=== PATIENT | male | born 1940 | race Caucasian/White ===

== ENCOUNTER 2016-09-11 13:40 | Inpatient (IN) | payer OTHER ==
[~2016-09-11] VITALS: Ht 167.6 cm; Wt 90.9 kg
[~2016-09-11 13:40] MED LIST: ACET-1311 PO; ALFU10TA2 PO; AMB5 PO; ASPEC325 PO; ATR25 PO; BND25X PO; CHOL100010 PO; CLC100 PO; COEN1CAP28 PO; CRG25 PO; FRRS300 PO; FURO80TA63 PO; HYDR-3785 PO; MULT-506 PO; NTRGSL/4 SL; NTRGSL/4 UT; ODVTWSS MS; OMEG10007 PO; OXYC-57 PO; PANT40TA PO; SIMV80TA2 PO
[2016-09-11] MEDS ORDERED: ACETAMINOPHEN 500 MG TAB PO STA (14:04)
--- NOTE | 2016-09-11 14:25 | EMERGENCY ROOM VISIT NOTE ---
ED Visit Note First contact with patient: 13:47 This Patient was discussed with the physician Hydrogen Cell Tender, Danial Francisco PA-C. The pertinent historical and physical exam findings were confirmed. I agree with the studies ordered and with the interpretations of these studies. I agree with the disposition and care plan. The patient was found have an episode of wide-complex tachycardia. He doesn't a history of dilated cardiac myopathy. I explained to him that he is very high risk for ventricular tachycardia and . He does not wish to be evaluated for defibrillator pacer. We will continue to discuss this with him throughout his visit in our emergency department but he is very reluctant to have any procedures.
--- NOTE | 2016-09-11 14:41 | EMERGENCY ROOM VISIT NOTE ---
History First contact with patient: 13:47 Chief Complaint: RESPIRATORY PROBLEMS Stated Complaint: DIFFICULTY AMBULATING Nursing Triage Summary: Pt reports that he has been feeling SOB or 1 month and has been unable to lie flat. Pt also has been having difficulty ambulating for a long time. Pt reports he called the ambulance because of the SOB. Pt also c/o left leg pain. Pt has infection to left leg for 1 month. Pt has history of CHF and has been taking old Lasix for 1 month. History of Present Illness The patient is a 76 year old male who presents to the Emergency Room via ambulance with complaints of "difficulty ambulating, breathing". The patient states that for the past month he has had increased shortness of breath as well as difficulty ambulating secondary to the left anterior mccann pain. He states he has a history of peripheral arterial disease as well as what is believed to be CHF and severe cardiomyopathy. The shortness of breath is worse with lying flat. He also smokes 4 cigarettes per day, and has an extensive smoking history. At this time he currently denies any chest pain, history of pulmonary embolism, DVT, myocardial infarction. He believes that in the past he was told he has thin heart lim but then had an echocardiogram which did not correlate. He states he has been admitted for similar previously. He also furnishes a document regarding his advanced directive. Although does state he does not want any CPR, he does state that he would like minimal measures such as CPR but nothing extravagant. Review of Systems A complete 10-point Review of Systems was discussed with the patient, with pertinent positives and negatives listed in the History of Present Illness. All remaining Review of Systems questions can be considered negative unless otherwise specified. Past Medical/Surgical History Medical Problems: (1) Acute systolic CHF (congestive heart failure) (2) Erysipelas of lower extremity (3) Hypothyroidism (4) Poorly controlled type 2 diabetes mellitus (5) PVD (peripheral vascular disease) with claudication (6) Renal insufficiency (7) Tobacco abuse (8) Ventricular tachycardia Family History Noncontributory at this age. Social History Smoking Status: Current Every Day Smoker Alcohol Use: occasionally Marital Status: Social History: Current every day smoker. Current/Historical Medications Scheduled Aspirin (Aspirin Ec), 4 TABS PO DAILY Cholecalciferol (Vitamin D3), 1 TAB PO DAILY Coenzyme Q10 (Ubidecarenone) (Co Q10), 100 MG PO Q2D Fish Oil (Wilton-3), 1 CAP PO DAILY Furosemide (Lasix), 40 MG PO DAILY Multivitamin (Multivitamin), 1 TAB PO DAILY Scheduled PRN Acetaminophen (Tylenol), 650 MG PO Q6H PRN Allergies Coded Allergies: Clopidogrel (Verified Allergy, Intermediate, RASH, 09/11/16) Spironolactone (Verified Allergy, Intermediate, RASH, 09/11/16) Hydralazine (Unverified Allergy, Unknown, drug rash, 09/11/16) Isosorbide Nitrate (Verified Allergy, Unknown, rash, 09/11/16) Propylhexedrine (Unverified Allergy, Unknown, unknown, 09/11/16) Diltiazem (Verified Adverse Reaction, Severe, rash, 09/11/16) Lisinopril (Verified Adverse Reaction, Intermediate, hyperkalemia, 09/11/16) Metolazone (Verified Adverse Reaction, Intermediate, hypokalemia, 09/11/16) Physical Exam Vital Signs Date Time Temp Pulse Resp B/P Pulse Ox O2 Delivery O2 Flow Rate FiO2 09/11/16 17:52 81 18 108/80 97 Room Air 09/11/16 17:19 110 20 147/117 93 Room Air 09/11/16 16:51 99 20 133/98 94 Room Air 09/11/16 16:22 101 20 136/101 93 Room Air 09/11/16 16:19 102 09/11/16 16:18 125 09/11/16 15:44 96 20 138/75 96 Room Air 09/11/16 14:42 104 09/11/16 14:42 129/96 09/11/16 14:38 138 09/11/16 14:31 102 09/11/16 14:30 107 27 95 09/11/16 14:15 136 09/11/16 13:45 Room Air 09/11/16 13:45 96 Room Air 09/11/16 13:45 36.8 86 18 152/114 96 Room Air Physical Exam VITAL SIGNS - Vital signs and nursing notes were reviewed. Patient is afebrile , non-tachycardic, respiratory well, hypertensive at 152/114, O2 sat of 96 on room air. GENERAL -76-year-old male appearing his stated age who is in no acute distress. Communicates well with provider and answers questions appropriately. SKIN - there is erythema of the left anterior mccann, with 2 localized areas of ulceration. There is slight serous fluid, and 1 serous blister formation on the left anterior mccann. HEAD - NC/AT. EYES - PERRL with EOMI bilaterally. Sclera anicteric. Palpebral conjunctiva pink and moist with no injection noted. EARS - No deformities of external structures noted on gross examination bilaterally. NOSE - Midline and without cyanosis. No epistaxis or purulent drainage noted. MOUTH/OROPHARYNX - Without perioral cyanosis. Buccal mucosa pink and moist and without leukoplakia. Tongue midline with equal elevation of palate bilaterally. No tonsillar hypertrophy, erythema, or exudates noted. Poor dentition noted. NECK - Neck with FROM. Supple to palpation. No lymphadenopathy noted. No nuchal rigidity. LUNGS - Chest wall symmetric without accessory muscle use, intercostals retractions, or central cyanosis. Normal vesicular breath sounds CTA B/L. No wheezes, rales, or rhonchi appreciated. CARDIAC - RRR with S1/S2. No murmur, rubs, or gallops appreciated. ABDOMEN - Abdominal contour without pulsations or visible masses. BS normoactive all four quadrants. No tenderness, palpable masses, hepatosplenomegaly, or ascites noted. EXTREMITIES - No clubbing or peripheral cyanosis. There is bilateral pretibial edema present. There is tenderness to palpation overlying the left anterior mccann. NEUROLOGIC - Cranial nerves II through XII grossly intact. Sensory intact to light touch throughout. PSYCH - A&Ox3 and cooperates fully with examiner. Pt is very pleasant and interacts well with examiner. Medical Decision & Procedures ER Provider Diagnostic Interpretation: CHEST ONE VIEW PORTABLE CLINICAL HISTORY: palpitations SHORTNESS BREATH COMPARISON STUDY: 04/10/2011 FINDINGS: The heart is enlarged. There is no overt failure. There is no lobar consolidation. There is blunting of the left lateral costophrenic angle suggesting a small effusion.[ There are minimal left basilar atelectatic changes. IMPRESSION: Cardiomegaly and small left pleural effusion. Electronically signed by: Bryan Izquierdo M.D. 09/11/2016 3:16 PM Dictated Date/Time: 09/11/2016 3:15 PM Laboratory Results Test 09/11/16 14:35 09/11/16 14:39 09/11/16 14:42 Prothrombin Time 11.4 SECONDS (9.0-12.0) Prothromb Time International Ratio 1.1 (0.9-1.1) Activated Partial Thromboplast Time 24.7 SECONDS (21.0-31.0) Partial Thromboplastin Ratio 1.0 Globulin 4.1 gm/dl (2.5-4.0) Albumin/Globulin Ratio 0.7 (0.9-2) Lipase 97 U/L (73-393) Procalcitonin < 0.05 ng/mL (0-0.5) Thyroid Stimulating Hormone (TSH) 7.770 uIu/ml (0.300-4.500) Free Thyroxine 1.13 ng/dl (0.80-1.60) Bedside Lactic Acid Venous 1.84 mmol/L (0.90-1.70) Bedside Troponin I 0.150 ng/ml (0-0.045) UO-Ned-R-Type Natriuretic Peptide 52965 pg/ml (0-900) Date/Time Source Procedure Growth Status 09/11/16 14:35 Blood Blood Culture - Final NO GROWTH Complete Medications Administered Medications (Trade) Dose Ordered Sig/Pascual Route Start Time Stop Time Status Last Admin Dose Admin Acetaminophen (Tylenol Tab) 500 mg NOW STAT PO 09/11/16 14:04 09/11/16 14:07 DC 09/11/16 14:25 500 MG Ceftriaxone Sodium (Rocephin Inj) 1 gm NOW STAT IV 09/11/16 16:44 09/11/16 16:45 DC 09/11/16 16:50 1 GM Amiodarone HCL/ Dextrose (Nexterone / D5w) 150 mg STK-MED ONCE .ROUTE 09/11/16 17:06 09/11/16 17:07 DC 09/11/16 17:18 150 MG Amiodarone HCL/ Dextrose (Nexterone / D5w) 360 mg STK-MED ONCE .ROUTE 09/11/16 17:07 09/11/16 17:08 DC 09/11/16 17:19 360 MG Medical Decision The patient was seen and evaluated as above. After obtaining a thorough history and physical examination IV access was initiated and the above workup was performed. There is clinical suspicion of CHF exacerbation given his previous history as well as peripheral arterial disease of the left lower extremity. Because of the concern for infection blood cultures were also obtained. Patient declined opioid medication therefore acetaminophen was given for his pain. He has various allergies. CBC reveals no leukocytosis or anemia. Coagulation studies within normal limits. CMP reveals normal sodium, potassium, chloride and carbon dioxide. Anion gap elevated at 12, BUN 28 and creatinine 1.5. Random glucose at 329. Beta hydroxy but uric acid at 5.31. Murcm-jo-yxxy BNP and troponin both elevated. Troponin [place] 0[place]15[place] [address]. TSH is elevated at 7.77. X-ray reveals cardiomegaly with pleural effusion. EKG reveals sinus tachycardia with PVCs, possible left atrial enlargement, age indeterminant septal infarct and lateral infarct. There are also ST and T-wave abnormalities with concern for inferior ischemia. At this time there are no ST segment elevations. The case was discussed thoroughly with my attending. The patient then began experiencing episodes of ventricular tachycardia with a pulse. Each episode was brief, with episodes lasting as long as 1 minute and 15 seconds. (PLEASE SEE TIMELINE BELOW). I then felt the patient was a candidate for admission. I did discuss with him whether or not a cardiac cath would be possible and he states he did not like the idea of that. I did discuss the case with Dr. Kruger. The case was also thoroughly discussed with my attending. Because the patient continued to experience episodes of V. tach, I did consult cardiology, Dr. Corcoran. He recommended amiodarone. A bolus and drip provided intravenously. He also personally evaluated the patient and a bedside echo were performed. There is poor ejection fraction noted. During each episode of the patient's ventricular tachycardia he did have a pulse, and spontaneously converted. There is no need to do compressions or electricity. I do with the patient will benefit from inpatient management, likely in the ICU. At this time he is critical, but is stable for admission to the ICU. Patient was also evaluated by my attending. Please refer to further documentation regarding the patient's stay. The patient stated many times he does not want extravagant life resuscitating measures. He does however state that he would like treatment to include CPR and antibiotics. He was given 1 g Rocephin to help any potential infection of the left lower leg. I suspect that these are arterial ulcers with potential early cellulitis. In evaluation treatment this patient following differential diagnoses were entertained: CHF exacerbation, dilated cardiomyopathy, ND, PE, sepsis, cellulitis, among others. 14:15: Few second duration of VT 14:38: Few second duration of VT 16:01: Few second duration of VT 16:17-16:18: 1 minute of VT 17:26-17:27: 30 seconds of VT 18:03-18:04: 75 seconds of VT *all were with a pulse Impression Primary Impression: Ventricular tachycardia Additional Impressions: Dyspnea Tobacco abuse Hypothyroidism Renal insufficiency Acute systolic CHF (congestive heart failure) Critical Care I have personally spent greater than 60 minutes of critical care time in the direct management of this patient. This includes bedside care, interpretation of diagnostic studies, and testing, discussion with consultants, patient, and family members, and other required patient management activities. This 60 minutes is in excess of all separately billable procedures. Departure Information Dispostion Admitted as an inpatient Condition POOR Referrals Jonny Baird M.D. (PCP) Patient Instructions My [facility] Problem Qualifiers
[2016-09-11 14:51] LABS: BASO % 0.7 %; BASO ABS # 0.06 K/uL (0-0.2); COMPLETE YES; EOS % 1.9 %; HEMATOCRIT 50.3 % (42-52); IG% 0.3 %; LYMPH % 26.4 %; LYMPH ABS # 2.42 K/uL (1.2-3.4); MEAN CELL VOLUME 91.3 fL (80-100); MEAN CORPUSCULAR HEMOGLOBIN 30.9 pg (25-34); MEAN CORPUSCULAR HGB CONC 33.8 g/dl (32-36); MEAN PLATELET VOLUME 11.1 fL (7.4-10.4); MONO % 5.7 %; PLATELET COUNT 161 K/uL (130-400); RED BLOOD COUNT 5.51 M/uL (4.7-6.1); WHITE BLOOD COUNT 9.18 K/uL (4.8-10.8)
[2016-09-11 14:58] LABS: INR 1.1 (0.9-1.1); PROTHROMBIN TIME (PATIENT) 11.4 SECONDS (9.0-12.0)
[2016-09-11 15:02] LABS: POINT OF CARE TROPONIN I 0.15 ng/ml (0-0.045)
[2016-09-11 15:07] LABS: BUN/CREATININE RATIO 18.7 (10-20); CALCIUM 8.9 mg/dl (8.5-10.1); CREATININE 1.5 mg/dl (0.60-1.40); MAGNESIUM 2.3 mg/dl (1.8-2.4); POTASSIUM 3.8 mmol/L (3.5-5.1)
[2016-09-11 15:10] LABS: ALB/GLOB RATIO 0.7 (0.9-2)
--- NOTE | 2016-09-11 15:17 | DIAGNOSTIC IMAGING REPORT ---
CHEST ONE VIEW PORTABLE CLINICAL HISTORY: palpitations SHORTNESS BREATH COMPARISON STUDY: 04/10/2011 FINDINGS: The heart is enlarged. There is no overt failure. There is no lobar consolidation. There is blunting of the left lateral costophrenic angle suggesting a small effusion.[ There are minimal left basilar atelectatic changes. IMPRESSION: Cardiomegaly and small left pleural effusion. Electronically signed by: Bryan Izquierdo M.D. 09/11/2016 3:16 PM Dictated Date/Time: 09/11/2016 3:15 PM
[2016-09-11 15:42] LABS: BETA-HYDROXYBUTYRATE 5.31 mg/dL (0.2-2.81)
[2016-09-11] MEDS ORDERED: CHOL1000 PO (16:34)
[2016-09-11] MEDS ORDERED: ASPI81TA28 PO (16:34)
[2016-09-11] MEDS ORDERED: FURO40TA3 PO (16:34)
[2016-09-11] MEDS ORDERED: CEFTRIAXONE SOD INJ 1 GM ADDVIAL IV STA (16:44)
[2016-09-11] MEDS ORDERED: AMIODARONE IV BOLUS / DRIP IV STA ×2 (16:54→18:10)
[2016-09-11] MEDS ORDERED: AMIODARONE 150MG / 100ML D5W ONE (17:06)
[2016-09-11] MEDS ORDERED: AMIODARONE 360MG / 200ML D5W ONE (17:07)
[2016-09-11] MEDS ORDERED: MoRPHine SULFATE 4 MG/ML 1 ML CARP\\VIAL IV PRN (18:00)
[2016-09-11] MEDS ORDERED: GLUCOSE 40% GEL 15 GM TUBE PO PRN (18:00)
[2016-09-11] MEDS ORDERED: ACETAMINOPHEN 325 MG TAB PO PRN (18:00)
[2016-09-11] MEDS ORDERED: NITROGLYCERIN 0.4 MG SL PER TAB CHARGE SL PRN (18:00)
[2016-09-11] MEDS ORDERED: GLUCAGON FOR INJ 1 MG VIAL SQ PRN (18:00)
[2016-09-11] MEDS ORDERED: GLUCOSE 10 TABS/TUBE PO PRN (18:00)
[2016-09-11] MEDS ORDERED: MoRPHine SULFATE 2 MG/ML CARP IV PRN (18:00)
[2016-09-11] MEDS ORDERED: DEXTROSE 50% 50 ML SYR IV PRN (18:00)
[2016-09-11] MEDS ORDERED: CEFTRIAXONE SOD INJ 1 GM in DEXTROSE 5% ADD-VANTAGE 50ML 50 ML IV SCH (18:15)
--- NOTE | 2016-09-11 18:41 | ECHOCARDIOGRAM REPORT ---
*NOTICE TO RECEIVING CONSTITUTION PARTY AGENCY This information is strictly Confidential and protected under [place] law. [place] law prohibits you from making any further disclosure of this information unless further disclosure is expressly permitted by the written consent of the person to whom it pertains or is authorized by law. A general authorization for the release of medical or other information is not sufficient for this purpose. Hospital accepts no responsibility if the information is made available to any other person, INCLUDING THE PATIENT. Interpretation Summary * Name: GOOD GUSTAFSON Study Date: 09/11/2016 04:56 PM BP: 147/117 mmHg * Patient Location: [facility] HR: 110 * : 1940 (M/d/yyyy) Gender: Male Height: 66 in * Age: 76 yrs Ethnicity: CA Weight: 199 lb * Ordering Physician: Rashi Corcoran * Performed By: Desire Elliott RDCS * * Reason For Study: Ventricular tachycardia * BSA: 2.0 m2 * -- Conclusions -- * 1. Moderately dilated left ventricle with severely reduced systolic function. EF 10-20%. Global severe hypokinesis to akinesis (see diagram). No left ventricular hypertrophy. Tissue Doppler suggests elevated left atrial pressure. * 2. The right ventricle is mildly dilated. The right ventricular systolic function is severely reduced. * 3. Mild biatrial dilation. * 4. Sclerotic aortic valve without significant stenosis. * 5. Mild mitral regurgitation. * 6. Moderately elevated right ventricular systolic pressure; estimated RVSP 52 mmHg. * 7. Compared to prior study on 04/30/2010, LV systolic function is now severely reduced (was hyperdynamic on 04/30/10). Procedure Details * A complete two-dimensional transthoracic echocardiogram was performed (2D, M-mode, Doppler and color flow Doppler). Left Ventricle * Moderately dilated left ventricle with severely reduced systolic function. EF 10-20%. Global severe hypokinesis to akinesis (see diagram). No left ventricular hypertrophy. Tissue Doppler suggests elevated left atrial pressure. Right Ventricle * The right ventricle is mildly dilated. * The right ventricular systolic function is severely reduced. * The right ventricular systolic function is reduced as assessed by tricuspid annular plane systolic excursion (TAPSE) (TAPSE <1.6 cm). Atria * The left atrium is mildly dilated. * The right atrium is mildly dilated. Mitral Valve * The mitral valve is grossly normal. * There is no mitral valve stenosis. * There is mild mitral regurgitation. Tricuspid Valve * The tricuspid valve is not well visualized, but is grossly normal. * There is no tricuspid stenosis. * There is mild tricuspid regurgitation. Aortic Valve * Sclerotic aortic valve without significant stenosis. * No hemodynamically significant valvular aortic stenosis. * There is no significant aortic regurgitation. Pulmonic Valve * The pulmonic valve is not well visualized. Great Vessels * The aortic root is normal size. Pericardium/Pleural * There is no pericardial effusion. Great Vessels * Dilated IVC with normal inspiratory collapse. MMode 2D Measurements and Calculations IVSd 10 cm LVIDd 6.1 cm LVIDs 5.8 cm LVPWd 0.95 cm IVS/LVPW 1.1 FS 4.1 % EDV(Teich) 184.8 ml ESV(Teich) 167.8 ml EF(Teich) 9.2 % EDV(cubed) 223.6 ml ESV(cubed) 197.0 ml EF(cubed) 11.9 % LV mass(C)d 243.8 grams LV mass(C)dI 122.1 grams/m\S\2 SV(Teich) 17.0 ml SI(Teich) 8.5 ml/m\S\2 SV(cubed) 26.6 ml SI(cubed) 13.3 ml/m\S\2 Ao root diam 3.0 cm Ao root area 6.9 cm\S\2 ACS 1.5 cm LVOT diam 2.4 cm LVOT area 4.5 cm\S\2 LVAd ap4 45.8 cm\S\2 LVLd ap4 10.1 cm EDV(MOD-sp4) 175.9 ml EDV(sp4-el) 176.3 ml LVAs ap4 40.8 cm\S\2 LVLs ap4 10.0 cm ESV(MOD-sp4) 144.8 ml ESV(sp4-el) 141.3 ml EF(MOD-sp4) 17.6 % EF(sp4-el) 19.8 % LVAd ap2 49.1 cm\S\2 LVLd ap2 10.2 cm EDV(MOD-sp2) 195.9 ml EDV(sp2-el) 200.0 ml LVAs ap2 46.1 cm\S\2 LVLs ap2 10.4 cm ESV(MOD-sp2) 176.2 ml ESV(sp2-el) 174.1 ml EF(MOD-sp2) 10.0 % EF(sp2-el) 12.9 % LVLd %diff 1.2 % EDV(MOD-bp) 187.5 ml LVLs %diff 3.4 % ESV(MOD-bp) 162.8 ml EF(MOD-bp) 13.2 % SV(MOD-sp4) 31.0 ml SI(MOD-sp4) 15.5 ml/m\S\2 SV(MOD-sp2) 19.7 ml SI(MOD-sp2) 9.9 ml/m\S\2 SV(MOD-bp) 24.7 ml SI(MOD-bp) 12.4 ml/m\S\2 SV(sp4-el) 34.9 ml SI(sp4-el) 17.5 ml/m\S\2 SV(sp2-el) 25.9 ml SI(sp2-el) 13.0 ml/m\S\2 Doppler Measurements and Calculations MV E max disha 79.1 cm/sec MV dec time 0.15 sec Ao V2 max 91.1 cm/sec Ao max PG 3.3 mmHg Ao max PG (full) 2.2 mmHg WILLI(V,A) 2.6 cm\S\2 WILLI(V,D) 2.6 cm\S\2 LV V1 max PG 1.1 mmHg LV V1 max 53.4 cm/sec MR max disha 385.5 cm/sec MR max PG 59.4 mmHg MR mean disha 294.0 cm/sec MR mean PG 39.5 mmHg MR VTI 110.8 cm TV E max disha 59.7 cm/sec TR max disha 331.2 cm/sec RVSP(TR) 51.9 mmHg RAP systole 8.0 mmHg
[2016-09-11] MEDS ORDERED: PHARMACY GLYCEMIC MGMT CONSULT PRN (19:02)
[2016-09-11 19:30] VITALS: BP 130/87; PULSE 91; TEMP 37; O2SAT 95
--- NOTE | 2016-09-11 19:33 | CARDIOLOGY CONSULTATION ---
DATE OF CONSULTATION: 09/11/2016 TIME: 1743 p.m. PRIMARY PARTY PLAN SALESPERSON: Dr. Horvath. CONSULTING PHYSICIAN: Dr. Larios of the Emergency Department. HISTORY OF PRESENT ILLNESS: Mr. Benítez is a pleasant 76-year-old gentleman with a history significant for cardiomyopathy, systolic CHF, dyslipidemia, hypertension, and severe peripheral arterial disease. He was last seen by Dr. Horvath on 04/07/2011 in the office. He was also followed by Dr. Baird in the primary care setting; however, he was unable to leave his house and attend visits so was last evaluated by Dr. Baird in 2011. After that last visit and prescription medications for approximately 1 year, he has gone without prescription medications including his carvedilol, statin and Lasix. In 2008, his ejection fraction was listed as 15%-20%. This was during a stress test. In 2009, his LV systolic function was reported as hyperdynamic with an EF of 75%-80%. This occurred after being treated with carvedilol. He was intolerant to SANDY inhibitors due to hyperkalemia. He had done relatively well from a cardiac standpoint until the last month or so. He had worsening shortness of breath which has progressively worsened over time. He describes this as both his shortness of breath at rest, dyspnea with exertion, as well as orthopnea and paroxysmal nocturnal dyspnea. He is barely able to sleep secondary to bilateral leg pain and paroxysmal nocturnal dyspnea. He has noted increasing edema with blister formation, which sometimes drain serous type of fluid. His left lower extremity has become erythematous with an open wound which recently started to heal. He has been coughing with frothy sputum. He denies syncope, palpitations, chest discomfort, abdominal pain, nausea, vomiting, melena, hematochezia, hematuria, fevers, chills. His was able to find some of his hold Lasix that had been sitting around for a few years. She has been giving him anywhere from 60-80 mg over the past 60 days or so. Apparently the Lasix improved his symptoms transiently early on, but they have not noticed any improvement over the past 30 days or so. He came to the Emergency Department for his worsening symptoms. While in the Emergency Department, he had a few runs of nonsustained ventricular tachycardia but also a sustained run of ventricular tachycardia that lasted greater than 1 minute. Although he did not feel palpitations or chest discomfort, both he and his agree that he began to become more and more fatigued and she said that while he was talking he began to fade. The Emergency Department staff states that he did have a pulse during this episode and did not lose consciousness. He spontaneously converted to sinus rhythm. He states that he has never been diagnosed with diabetes; however, his glucose in the Emergency Department was greater than 300. He states he eats sugar and sugary foods to keep up his energy. In regards to claudication, he can only walk 20-30 feet, basically from room to room in his house before getting claudication symptoms and having to rest. He was told in the past that stents of his lower extremities were not a great option. He does not recall ever having a cardiac catheterization and he is not interested in undergoing one. He states that he maintains a low sodium diet. He does not weigh himself. REVIEW OF SYSTEMS: As above and otherwise review of systems is negative. PAST MEDICAL HISTORY: 1. History of cardiomyopathy in 2008 with EF 15%-20%, but reported hyperdynamic LV systolic function 2009. 2. Chronic kidney disease. 3. Systolic CHF. 4. Dyslipidemia. 5. Hypertension. 6. Incomplete left bundle-branch block. 7. Mitral regurgitation. 8. Peripheral arterial disease with a duplex in October 2009 reporting bilateral SFA occlusion and severe stenosis in the profunda arteries. 9. Anemia. 10. Nonsustained ventricular tachycardia. HOME MEDICATIONS: Include 1. Aspirin total of 325 mg daily. 2. Centrum vitamin. 3. Vitamin D3. 4. Fish oil. 5. CoQ10. 6. Recently he had been taking Lasix 60 or 80 mg a day. ALLERGIES AND INTOLERANCES: 1. PLAVIX CAUSED RASH. 2. DILTIAZEM CAUSED RASH. 3. SPIRONOLACTONE CAUSED RASH. 4. LISINOPRIL CAUSED HYPERKALEMIA. 5. METOLAZONE CAUSED HYPOKALEMIA. 6. HYDRALAZINE CAUSED RASH. 7. ISOSORBIDE MONONITRATE SUSPECTED TO CAUSE RASH. 8. PROPYLHEXEDRINE CAUSED RASH. 9. HYDROCODONE AND OXYCODONE CAUSED CONSTIPATION AND BLOATING. SOCIAL HISTORY: He smokes 4 cigarettes per day but smoked up to three-fourths of a pack per day chronically. Rare alcohol. No drugs. No children. He lives at home with his and pet birds. His is present at the bedside. 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 FAMILY HISTORY: No known premature CAD or sudden cardiac . PHYSICAL EXAMINATION: VITAL SIGNS: Temperature is 36.8 degrees, heart rate 110 beats per minute, respiration rate 20, blood pressure 147/117 mmHg, oxygen saturation 93% on room air, weight 90.7 kg. GENERAL: No acute distress. He is alert and oriented. HEENT: Anicteric sclerae. NECK: Elevated JVD. No bruits. Normal carotid upstrokes bilaterally. CARDIAC EXAMINATION: PMI was nonpalpable. There was no ventricular heave. Regular with ectopy and tachycardic in the low 100s, normal S1, S2. No murmurs, rubs, or gallops were auscultated. LUNGS: Rales bilateral bases. ABDOMEN: Soft, nontender, nondistended, normoactive bowel sounds, no bruits noted. EXTREMITIES: 2+ radial pulses bilaterally. 1+ femoral pulses bilaterally with bilateral femoral bruits. Distal lower extremity pulses were nonpalpable. 2+ bilateral pitting edema to above the knees. Left lower extremity with a healing wound and erythema. It is tender to palpation. No palpable cords. No cyanosis. PSYCHIATRIC: Affect appears appropriate. ECG personally reviewed. Sinus rhythm, possible anterior infarct. ST/T-wave abnormality in the inferior leads. Possible lateral infarct. PVCs and ventricular couplet. Telemetry personally reviewed. Nonsustained ventricular tachycardic episodes as well as a sustained ventricular tachycardia of greater than 1 minute. It appeared monomorphic. Outpatient echocardiogram reports reviewed as noted above. Outpatient chart reviewed. Inpatient chart reviewed. LABORATORY DATA: Sodium 136, potassium 3.8, BUN 28, creatinine 1.5, which appears to be at his baseline. Lactic acid 1.84, magnesium 2.3, AST 32, ALT 40. Troponin 0.15. ProBNP 10,141, albumin 2.9. Lipase 97, glucose 329. INR is 1.1. White blood cell count is 9.18, hemoglobin 17, platelets 161. Chest x-ray image personally reviewed. Cardiomegaly noted. No obvious infiltrate. Radiology has also interpreted as cardiomegaly and small left pleural effusion. Stat echocardiogram was ordered. The images were personally reviewed at bedside. Preliminary review demonstrates severely reduced LV systolic function with an EF of less than 20%. There was no severe valvular abnormality noted. There appeared to be mild mitral regurgitation. Full report to follow when echo is formally reviewed. ASSESSMENT AND PLAN: 1. Sustained ventricular tachycardia: He apparently had a pulse according to the Emergency Department staff; however, he was symptomatic and his stated that he was starting to fade. This is likely secondary to his cardiomyopathy. Recommend amiodarone drip. Recommend low-dose beta-gavin. TSH level ordered. We discussed potentially undergoing ICD placement in the future if his LV systolic function is not improved; however, he states that he is not interested in such measures. 2. Acute on chronic systolic congestive heart failure: He had decompensated congestive heart failure and is hypervolemic. Lasix 80 mg IV x1 followed by 40 mg IV b.i.d. Goal to be 1-2 liters negative in the next 24 hours from a fluid balance standpoint. Low sodium diet, daily weights and strict I's and O's. Start low dose carvedilol and increase as tolerated once the heart failure starts to improve. He apparently had hyperkalemia with lisinopril in the past. 3. Cardiomyopathy: Etiology uncertain. He apparently had a severely reduced LV systolic function in the past which improved while on carvedilol. Coronary angiography was discussed with him and recommended; however, he declines. He was made aware that if he has multivessel coronary artery disease that his LV systolic function may not improve and he is comfortable with this decision. Start carvedilol as noted above. Ideally would like to start SANDY inhibitor or Entresto; however, he had hyperkalemia in the past on SANDY inhibitor. He is not interested in ICD as noted above, understanding that arrhythmia may be fatal. 4. Elevated troponins: Serial troponins were recommended and ordered at this time. He is not interested in coronary angiography and he did not present with acute coronary syndrome. Although ventricular tachycardia can be an ischemic arrhythmia, this was monomorphic and therefore may not represent ischemia. Continue aspirin. Also, given his severe peripheral arterial disease, would treat for coronary artery disease as a potential cause for his cardiomyopathy. High intensity statin therapy will be ordered. Continue aspirin. Beta-gavin also as noted above. 5. Peripheral arterial disease: He appears as though he has significant quality of life limiting claudication. He states that he has not been a candidate for invasive measures and he is not interested invasive measures. Medical therapy as noted above. 6. Tobacco abuse: It was recommended that he stop smoking. 7. Hypertension: Carvedilol and diuretic therapy is being initiated as noted above. 8. Disposition: We discussed code status. He does not want to undergo mechanical ventilation but is okay with defibrillation and other CPR measures. He was agreeable to supporting breathing such as bag and mask, but if he is unable to be resuscitated with the other ACLS measures he did not want to be placed on mechanical ventilator at any time. Highly complex medical issues. Plan of care has been discussed with Dr. Larios of the Emergency Department, Dr. Kruger of the admitting service and also Dr. Alberto of the critical care team. Complex medical issues. 75 minutes critical care time spent coordinating care, counseling patient, reviewing images including treatment for his heart failure and ventricular tachycardia. Cardiology will continue to follow. Dr. Horvath will resume his cardiology care tomorrow when he returns to the hospital.
[2016-09-11 20:01] VITALS: BP 107/68; PULSE 87; O2SAT 95
--- NOTE | 2016-09-11 20:01 | Critical Care Consultation ---
Critical Care Consultation Date of Consultation: Sep 11, 2016. Attending Physician: Damari Kruger Reason for Consultation: Sustained ventricular tachycardia dilated cardiomyopathy History of Present Illness Patient is a 76-year-old male who presents with a history of congestive heart failure who has had difficulty walking and breathing for the past several days. He is also complaining of a painful left lower extremity with significant nonhealing wound for the past several days. He was evaluated in the emergency department and found to be in sustained ventricular tachycardia he actually had a syncopal event associated with this and was cardioverted. He's been evaluated by Dr. Corcoran cardiology and started on amiodarone, he is also had a urgent echocardiogram with depressed ejection fraction. The patient has not wanted invasive procedures such as an AICD, he does not want to be intubated in event of cardiac arrest he would desire cardioversion and short CPR if they can return a perfusing rhythm otherwise he does not desire continued heroic measures. Past Medical/Surgical History Ventricular tachycardia tachycardia Acute systolic heart failure Complicated skin and soft tissue infection of the left lower extremity Renal insufficiency baseline creatinine approximately 1.4 Diabetes mellitus uncontrolled type II Hypothyroidism Peripheral vascular disease Tobacco abuse Social History Smoking Status: Current Every Day Smoker Marital Status: Allergies Coded Allergies: Clopidogrel (Verified Allergy, Intermediate, RASH, 09/11/16) Spironolactone (Verified Allergy, Intermediate, RASH, 09/11/16) Hydralazine (Unverified Allergy, Unknown, unknown, 09/11/16) Propylhexedrine (Unverified Allergy, Unknown, unknown, 09/11/16) Diltiazem (Verified Adverse Reaction, Unknown, unknown, 09/11/16) Lisinopril (Verified Adverse Reaction, Unknown, unknown, 09/11/16) Metolazone (Verified Adverse Reaction, Unknown, unknown, 09/11/16) Home Medications Scheduled Aspirin (Aspirin Ec), 4 TABS PO DAILY Cholecalciferol (Vitamin D3), 1 TAB PO DAILY Coenzyme Q10 (Ubidecarenone) (Co Q10), 100 MG PO Q2D Fish Oil ([place]-3), 1 CAP PO DAILY Furosemide (Lasix), 40 MG PO DAILY Multivitamin (Multivitamin), 1 TAB PO DAILY Scheduled PRN Acetaminophen (Tylenol), 650 MG PO Q6H PRN Current Inpatient Medications Current Inpatient Medications Medications (Trade) Dose Ordered Sig/Pascual Route Start Time Stop Time Status Last Admin Dose Admin Carvedilol 3.125 mg 3.125 mg BID PO 09/11/16 21:00 10/11/16 20:59 UNV Furosemide 80 mg/ Syringe 8 ml @ 4 mls/min ONE IV 09/11/16 17:45 10/11/16 17:44 UNV Furosemide/Syringe (Lasix Inj/ Syringe) 4 ml @ 4 mls/min BID IV 09/12/16 07:00 10/12/16 06:59 UNV Aspirin (Ecotrin Tab) 81 mg QAM PO 09/12/16 09:00 10/12/16 08:59 UNV Atorvastatin Calcium (Lipitor Tab) 80 mg HS PO 09/11/16 21:00 10/11/16 20:59 UNV Heparin Sodium (Porcine) (Heparin Sq 5000 Unit/0.5ml) 5,000 unit Q8H SQ 09/11/16 18:00 10/11/16 17:59 UNV Acetaminophen (Tylenol Tab) 650 mg Q4H PRN PO 09/11/16 18:00 10/11/16 17:59 UNV Nitroglycerin (Nitrostat Tab) 0.4 mg UD PRN SL 09/11/16 18:00 10/11/16 17:59 UNV Morphine Sulfate (MoRPHine SULFATE INJ) 2 mg Q2H PRN IV 09/11/16 18:00 09/25/16 17:59 UNV Morphine Sulfate (MoRPHine SULFATE INJ) 4 mg Q2H PRN IV 09/11/16 18:00 09/25/16 17:59 UNV Insulin Aspart (novoLOG ASPART) SLIDING SCALE If C... ACHS SC 09/11/16 21:00 10/11/16 20:59 UNV Glucose (Glucose 40% Gel) 15-30 GRAMS 15 GRAMS... UD PRN PO 09/11/16 18:00 10/11/16 17:59 UNV Glucose (Glucose Chew Tab) 4-8 Tablets 4 Tabl... UD PRN PO 09/11/16 18:00 10/11/16 17:59 UNV Dextrose (Dextrose 50% 50ML Syringe) 25-50ML OF 50% DW IV FOR... UD PRN IV 09/11/16 18:00 10/11/16 17:59 UNV Glucagon (Glucagon Inj) 1 mg UD PRN SQ 09/11/16 18:00 10/11/16 17:59 UNV Miscellaneous Information (Consult Glycemic Management Pharmacy) 1 ea ONE STAT N/A 09/11/16 17:57 09/11/16 17:58 UNV Amiodarone HCl 1 ea 1 ea NOW STAT IV 09/11/16 18:10 09/11/16 18:11 UNV Ceftriaxone Sodium/Dextrose (Rocephin Inj/ Dextrose Add-[place] 50ML) 50 ml @ 100 mls/hr Q24H IV 09/11/16 18:15 09/21/16 18:14 UNV Review of Systems Constitutional: No chills, No fever Respiratory: + dyspnea on exertion, + shortness of breath Cardiovascular: + claudication, + edema, + orthopnea Musculoskeletal: + calf pain (at site of wound infection), + swelling Endocrine: + fatigue Physical Exam Date Time Temp Pulse Resp B/P Pulse Ox O2 Delivery O2 Flow Rate FiO2 09/11/16 17:52 81 18 108/80 97 Room Air 09/11/16 17:19 110 20 147/117 93 Room Air 09/11/16 16:51 99 20 133/98 94 Room Air 09/11/16 16:22 101 20 136/101 93 Room Air 09/11/16 16:19 102 09/11/16 16:18 125 09/11/16 15:44 96 20 138/75 96 Room Air 09/11/16 14:42 104 09/11/16 14:42 129/96 09/11/16 14:38 138 09/11/16 14:31 102 09/11/16 14:30 107 27 95 09/11/16 14:15 136 09/11/16 13:45 Room Air 09/11/16 13:45 96 Room Air 09/11/16 13:45 36.8 86 18 152/114 96 Room Air General Appearance: WD/WN Head: normocephalic, atraumatic Eyes: PERRLA, EOMI Neck: no tenderness, trachea midline Respiratory: rhonchi Cardiovasular: ectopy noted Abdomen: non tender, normal bowel sounds, no rebound Genitourinary - Male: external genitalia normal Upper Extremities: no edema Lower Extremities: edema (3+), other (significant erysipelas and wound on left lower extremity anterior mccann) Edema: Bilateral LE (3+) Neuro: alert, oriented x 3 Laboratory Results Last 24 Hours Test 09/11/16 14:35 09/11/16 14:39 09/11/16 14:42 White Blood Count 9.18 K/uL Red Blood Count 5.51 M/uL Hemoglobin 17.0 g/dL Hematocrit 50.3 % Mean Corpuscular Volume 91.3 fL Mean Corpuscular Hemoglobin 30.9 pg Mean Corpuscular Hemoglobin Concent 33.8 g/dl Platelet Count 161 K/uL Mean Platelet Volume 11.1 fL Neutrophils (%) (Auto) 65.0 % Lymphocytes (%) (Auto) 26.4 % Monocytes (%) (Auto) 5.7 % Eosinophils (%) (Auto) 1.9 % Basophils (%) (Auto) 0.7 % Neutrophils # (Auto) 5.98 K/uL Lymphocytes # (Auto) 2.42 K/uL Monocytes # (Auto) 0.52 K/uL Eosinophils # (Auto) 0.17 K/uL Basophils # (Auto) 0.06 K/uL RDW Standard Deviation 48.1 fL RDW Coefficient of Variation 14.3 % Immature Granulocyte % (Auto) 0.3 % Immature Granulocyte # (Auto) 0.03 K/uL Prothrombin Time 11.4 SECONDS Prothromb Time International Ratio 1.1 Activated Partial Thromboplast Time 24.7 SECONDS Partial Thromboplastin Ratio 1.0 Sodium Level 136 mmol/L Potassium Level 3.8 mmol/L Chloride Level 100 mmol/L Carbon Dioxide Level 24 mmol/L Anion Gap 12.0 mmol/L Blood Urea Nitrogen 28 mg/dl Creatinine 1.50 mg/dl Est Creatinine Clear Calc Drug Dose 45.6 ml/min Estimated GFR () 52.4 Estimated GFR (Non- 45.2 BUN/Creatinine Ratio 18.7 Random Glucose 329 mg/dl Calcium Level 8.9 mg/dl Magnesium Level 2.3 mg/dl Total Bilirubin 0.8 mg/dl Aspartate Amino Transf (AST/SGOT) 32 U/L Alanine Aminotransferase (ALT/SGPT) 40 U/L Alkaline Phosphatase 107 U/L Total Protein 7.0 gm/dl Albumin 2.9 gm/dl Globulin 4.1 gm/dl Albumin/Globulin Ratio 0.7 Lipase 97 U/L Beta-Hydroxybutyric Acid 5.31 mg/dL Thyroid Stimulating Hormone (TSH) 7.770 uIu/ml Bedside Lactic Acid Venous 1.84 mmol/L Bedside Troponin I 0.150 ng/ml [id number] Natriuretic Peptide 02445 pg/ml Diagnostic Results I have reviewed the chest x-ray report as well as the images themselves for chest x-ray dated 09/11/2016 impression cardiomegaly I have reviewed the EKG as well as report for EKG dated 09/11/2016 impression: Abnormal EKG, ST and T-wave abnormalities frequent PVCs sinus tachycardia rate of 110 prolonged QTC of 487 Assessment & Plan Patient is a 76-year-old male with history of dilated cardiomyopathy who is critically ill due to his symptomatic sustained ventricular tachycardia. PLAN: Neuro: Pain control of the right lower extremity, fentanyl when necessary as this will have less effect on blood pressures Resp: Supplemental oxygen as needed likely carries the diagnosis of cor pulmonale and or obstructive sleep apnea CV: Ventricular tachycardia, on amiodarone infusion, patient does not desire AICD Fluids/Renal: Renal insufficiency, and volume overload Lasix diuresis ID: Skin and soft tissue infection of the lower extremity, not meeting SIRS criteria, we will continue with ceftriaxone, will obtain mri scan of left lower extremity to exclude fasciitis or myositis, given vancomycin load for coverage would only continue treatment if MRI is positive GI/Nutrition: Low-sodium diet, would make nothing by mouth if MRI positive for pyomyositis if need open debridement Heme: Low platelets Endocrine: Poorly-controlled type II diabetic with hyperglycemia, pharmacy consult for glycemic control CODE STATUS: No intubation, requests active chest compressions electrical cardioversion and medications in event of cardiac arrest Surrogate decision maker: Patient's Candi Benítez [phone] I have personally spent 90 minutes of critical care time in the direct management of this patient. This is a life/limb threatening event. This includes time spent evaluating patient, direct bedside care, chart review, placing orders, interpretation of diagnostic studies, discussion with consultants, patient, and family members, as well as other required patient management activities. This time is exclusive of all separately billable procedures, and teaching time and separate from and in addition to any other critical care service time. I discussed the case with Dr. Lynch as well as Dr. Kurtis Corcoran
[2016-09-11] MEDS ORDERED: FUROSEMIDE INJ 80 MG in SYRINGE 0 ML IV SCH (20:15)
[2016-09-11] MEDS ORDERED: VANCOMYCIN CONSULT ACTIVE PRN (20:30)
[2016-09-11] MEDS: ATORVASTATIN 40 MG TAB PO SCH (20:57)
[2016-09-11] MEDS: CARVEDILOL 3.125 MG TAB PO SCH (20:57)
[2016-09-11 21:00] VITALS: BP 132/84; PULSE 93; O2SAT 95
[2016-09-11] MEDS ORDERED: VANCOMYCIN INJ 2,000 MG in SODIUM CHLORIDE 0.9% 500ML 500 ML IV ONE (21:00)
[2016-09-11 21:07] VITALS: BP 130/87; PULSE 89; O2SAT 94; BMI 31.6
[2016-09-11] MEDS: INSULIN ASPART 100 UNITS/ML 3 ML PEN SC SCH (21:08)
[2016-09-11] MEDS: HEPARIN SOD 5000 UNIT/0.5 ML CARP SQ SCH (21:09)
[2016-09-11 22:00] VITALS: BP 120/81; PULSE 77; TEMP 37; O2SAT 95
[2016-09-11] MEDS ORDERED: NURSING VERBAL MED ORDER ONE (22:15)
[2016-09-11] MEDS: AMIODARONE / D5W 200 ML IV SCH (22:49)
[2016-09-11 23:01] VITALS: BP 110/88; PULSE 93; O2SAT 91
--- NOTE | 2016-09-11 23:27 | History and Physical ---
History & Physical Date & Time of Service: Sep 11, 2016 at 22:50 Chief Complaint: Acute Systolic Chf,Ventricular Tachycardia Primary Care Physician: Jonny Baird M.D. History of Present Illness Source: patient, spouse This patient is a 76-year-old male with a history significant for cardiomyopathy, severe chronic systolic CHF with an EF previously of 15-20% on an echo from 2008, dyslipidemia,hypertension, nonsustained ventricular tachycardia, mitral regurgitation, severe peripheral arterial disease, and CKD stage III, who has been lost to follow-up from both cardiology and primary care for approximately 5-6 years. He apparently stopped taking all of his medications about 4 years ago. After medical management of his CHF, he did have improvement on a subsequent echo in 2009 with an EF of 75%. He presented to the emergency room today for progressively worsening shortness of breath, leg swelling, orthopnea, and severe leg pain with claudication and a left leg wound for the last 10 days. He has had some blisters rupture open due to the swelling in his legs. He can only walk 20 feet before he has severe pain in the legs. He denies chest pain. He denies fevers or chills. His was able to find some of his hold Lasix that had been sitting around for a few years. She has been giving him anywhere from 60-80 mg over the past 60 days or so. Apparently the Lasix improved his symptoms transiently early on , but they have not noticed any improvement over the past 30 days or so. While in the Emergency Department, he had a few runs of nonsustained ventricular tachycardia including 1 that lasted greater than 1 minute and he started to become unresponsive the ER physician or PA was about to commence chest compressions when the patient came out of the rhythm and became responsive. The patient was seen urgently in consultation with the senior sharepoint architect for the recurrent sustained ventricular tachycardia, and was bolused with amiodarone and then started on an amiodarone drip. He was found to be in florid decompensated CHF, and was given IV Lasix. A bedside echocardiogram was performed by the senior sharepoint architect which confirmed his ejection fraction was less than 20%. He will be admitted to the ICU given his recurrent sustained ventricular tachycardia, acute on chronic systolic CHF, and the cellulitis of the left leg. Past Medical/Surgical History Past medical history: Cardiomyopathy Severe chronic systolic CHF with an EF 15-20% Dyslipidemia Hypertension History of nonsustained ventricular tachycardia Mitral regurgitation Severe peripheral arterial disease CKD stage III Impaired fasting glucose Past surgical history: Right hip ORIF Family History Mom with CHF Dad with laryngeal cancer Social History Smoking Status: Former Smoker Alcohol Use: none Marital Status: Housing status: lives with family Immunizations History of Influenza Vaccine: Yes Influenza Vaccine Date: Mar 21, 2011 History of Tetanus Vaccine?: Unknown History of Pneumococcal: Yes Pneumococcal Date: Apr 17, 2009 History of Hepatitis B Vaccine: Unknown Multi-Drug Resistant Organisms History of MDRO: No Allergies Coded Allergies: Clopidogrel (Verified Allergy, Intermediate, RASH, 09/11/16) Spironolactone (Verified Allergy, Intermediate, RASH, 09/11/16) Hydralazine (Unverified Allergy, Unknown, unknown, 09/11/16) Propylhexedrine (Unverified Allergy, Unknown, unknown, 09/11/16) Diltiazem (Verified Adverse Reaction, Unknown, unknown, 09/11/16) Lisinopril (Verified Adverse Reaction, Unknown, unknown, 09/11/16) Metolazone (Verified Adverse Reaction, Unknown, unknown, 09/11/16) Home Medications Scheduled Aspirin (Aspirin Ec), 4 TABS PO DAILY Cholecalciferol (Vitamin D3), 1 TAB PO DAILY Coenzyme Q10 (Ubidecarenone) (Co Q10), 100 MG PO Q2D Fish Oil ([place]-3), 1 CAP PO DAILY Furosemide (Lasix), 40 MG PO DAILY Multivitamin (Multivitamin), 1 TAB PO DAILY Scheduled PRN Acetaminophen (Tylenol), 650 MG PO Q6H PRN Review of Systems Constitutional: No chills, No fever Eyes: No problem reported ENT: No problem reported Respiratory: + cough, + dyspnea at rest, + dyspnea on exertion, + shortness of breath Cardiovascular: + PND, + claudication, + edema, No chest pain, No palpitations Abdomen: No GI bleeding, No constipation, No diarrhea, No nausea, No pain, No vomiting Musculoskeletal: No problem reported Genitourinary - Male: No problem reported Neurologic: No problem reported Psychiatric: No problem reported Endocrine: No problem reported Hematologic / Lymphatic: No problem reported Integumentary: + new/changing skin lesions (left leg wound and blisters) Allergic / Immunologic: No problem reported Physical Exam Vital Signs Date Time Temp Pulse Resp B/P Pulse Ox O2 Delivery O2 Flow Rate FiO2 09/11/16 22:00 37.0 77 22 120/81 95 Room Air 09/11/16 21:07 89 130/87 94 Room Air 09/11/16 21:00 93 132/84 95 Room Air 09/11/16 20:01 87 107/68 95 Room Air 09/11/16 19:30 37.0 91 20 130/87 95 Room Air 09/11/16 18:44 89 18 116/94 96 Room Air 09/11/16 17:52 81 18 108/80 97 Room Air 09/11/16 17:19 110 20 147/117 93 Room Air 09/11/16 16:51 99 20 133/98 94 Room Air 09/11/16 16:22 101 20 136/101 93 Room Air 09/11/16 16:19 102 09/11/16 16:18 125 09/11/16 15:44 96 20 138/75 96 Room Air 09/11/16 14:42 104 09/11/16 14:42 129/96 09/11/16 14:38 138 09/11/16 14:31 102 09/11/16 14:30 107 27 95 09/11/16 14:15 136 09/11/16 13:45 Room Air 09/11/16 13:45 96 Room Air 09/11/16 13:45 36.8 86 18 152/114 96 Room Air General Appearance: no apparent distress, + obese (appears very ill and ashen in color) Head: normocephalic, atraumatic Eyes: normal inspection, PERRL, EOMI, sclerae normal ENT: hearing grossly normal, pharynx normal Neck: trachea midline Respiratory/Chest: no respiratory distress, no accessory muscle use, + decreased breath sounds (at the bases bilaterally) Cardiovascular: regular rate, rhythm, no murmur, + pertinent finding ( bilateral legs with 2+ pitting edema left greater than right with exquisite tenderness to palpation left greater than right, slow cap refill in the toes bilaterally, barely palpable pedal pulses bilaterally) Abdomen/GI: normal bowel sounds, non tender, soft, no organomegaly, no pulsatile mass Extremities/Musculoskelatal: + pertinent finding (left anterior tibia with large 10 x 4 cm superficial dry wound with surrounding erythema and warmth taking up the entire anterior tibia, no drainage, several clear fluid-filled blisters on left leg) Neurologic/Psych: alert, normal mood/affect Skin: + pertinent finding (ashen color, left leg with erythema as above) Diagnostics Laboratory Results Results Past 24 Hours Test 09/11/16 14:35 09/11/16 14:39 09/11/16 14:42 09/11/16 21:04 Range/Units White Blood Count 9.18 4.8-10.8 K/uL Red Blood Count 5.51 4.7-6.1 M/uL Hemoglobin 17.0 14.0-18.0 g/dL Hematocrit 50.3 42-52 % Mean Corpuscular Volume 91.3 80-100 fL Mean Corpuscular Hemoglobin 30.9 25-34 pg Mean Corpuscular Hemoglobin Concent 33.8 32-36 g/dl Platelet Count 161 130-400 K/uL Mean Platelet Volume 11.1 7.4-10.4 fL Neutrophils (%) (Auto) 65.0 % Lymphocytes (%) (Auto) 26.4 % Monocytes (%) (Auto) 5.7 % Eosinophils (%) (Auto) 1.9 % Basophils (%) (Auto) 0.7 % Neutrophils # (Auto) 5.98 1.4-6.5 K/uL Lymphocytes # (Auto) 2.42 1.2-3.4 K/uL Monocytes # (Auto) 0.52 0.11-0.59 K/uL Eosinophils # (Auto) 0.17 0-0.5 K/uL Basophils # (Auto) 0.06 0-0.2 K/uL RDW Standard Deviation 48.1 36.4-46.3 fL RDW Coefficient of Variation 14.3 11.5-14.5 % Immature Granulocyte % (Auto) 0.3 % Immature Granulocyte # (Auto) 0.03 0.00-0.02 K/uL Prothrombin Time 11.4 9.0-12.0 SECONDS Prothromb Time International Ratio 1.1 0.9-1.1 Activated Partial Thromboplast Time 24.7 21.0-31.0 SECONDS Partial Thromboplastin Ratio 1.0 Sodium Level 136 136-145 mmol/L Potassium Level 3.8 3.5-5.1 mmol/L Chloride Level 100 98-107 mmol/L Carbon Dioxide Level 24 21-32 mmol/L Anion Gap 12.0 3-11 mmol/L Blood Urea Nitrogen 28 7-18 mg/dl Creatinine 1.50 0.60-1.40 mg/dl Est Creatinine Clear Calc Drug Dose 45.6 ml/min Estimated GFR () 52.4 Estimated GFR (Non- 45.2 BUN/Creatinine Ratio 18.7 10-20 Random Glucose 329 70-99 mg/dl Calcium Level 8.9 8.5-10.1 mg/dl Magnesium Level 2.3 1.8-2.4 mg/dl Total Bilirubin 0.8 0.2-1 mg/dl Aspartate Amino Transf (AST/SGOT) 32 15-37 U/L Alanine Aminotransferase (ALT/SGPT) 40 12-78 U/L Alkaline Phosphatase 107 45-117 U/L Total Protein 7.0 6.4-8.2 gm/dl Albumin 2.9 3.4-5.0 gm/dl Globulin 4.1 2.5-4.0 gm/dl Albumin/Globulin Ratio 0.7 0.9-2 Lipase 97 73-393 U/L Beta-Hydroxybutyric Acid 5.31 0.2-2.81 mg/dL Procalcitonin < 0.05 0-0.5 ng/mL Thyroid Stimulating Hormone (TSH) 7.770 0.300-4.500 uIu/ml Free Thyroxine 1.13 0.80-1.60 ng/dl Bedside Lactic Acid Venous 1.84 0.90-1.70 mmol/L Bedside Troponin I 0.150 0-0.045 ng/ml SD-Ffn-Q-Type Natriuretic Peptide 59584 0-900 pg/ml Bedside Glucose 288 70-99 mg/dl Test 09/11/16 21:21 Range/Units Troponin I 0.151 0-0.045 ng/ml Microbiology Results 09/11/16 Blood Culture, Received Pending 09/11/16 Blood Culture, Received Pending 09/11/16 MRSA DNA Surveillance Screen - Final, Complete Specimen Negative for MRSA by DNA Probe Diagnostic Radiology Chest x-ray images reviewed personally by me and agree with cardiomegaly and small left pleural effusion EKG Sinus tachycardia with possible incomplete left bundle branch block, T-wave inversions in the inferior leads, old lateral infarct, PVCs Impression Assessment and Plan This patient is a 76-year-old male with a history significant for cardiomyopathy, severe chronic systolic CHF with an EF previously of 15-20% on an echo from 2008, dyslipidemia,hypertension, nonsustained ventricular tachycardia, mitral regurgitation, severe peripheral arterial disease, and CKD stage III, who has been lost to follow-up from both cardiology and primary care for approximately 5-6 years. He apparently stopped taking all of his medications about 4 years ago. He presented to the emergency room today for progressively worsening shortness of breath, leg swelling, orthopnea, and severe leg pain with claudication and a left leg wound. He was found to be in acutely decompensated systolic CHF and had recurrent runs of sustained ventricular tachycardia including one that lasted greater than 1 minute and as he started to become unresponsive, the ER physician or PA was about to commence chest compressions when the patient came out of the rhythm and became responsive. Acute on chronic severe systolic CHF, sustained ventricular tachycardia, severe PAD, hypertension, dyslipidemia-presumably ischemic cardiomyopathy although has never had a cardiac catheterization. The patient was seen urgently in consultation with the senior sharepoint architect for the recurrent sustained ventricular tachycardia, and was bolused with amiodarone and then started on an amiodarone drip. He was found to be in florid decompensated CHF, and was given IV Lasix 80 mg. A bedside echocardiogram was performed by the senior sharepoint architect which confirmed his ejection fraction was less than 20%. Troponin mildly elevated at 0.15 and BNP significantly elevated at 10 ,000. Echo: * 1. Moderately dilated left ventricle with severely reduced systolic function. EF 10-20%. Global severe hypokinesis to akinesis (see diagram). No left ventricular hypertrophy. Tissue Doppler suggests elevated left atrial pressure. * 2. The right ventricle is mildly dilated. The right ventricular systolic function is severely reduced. * 3. Mild biatrial dilation. * 4. Sclerotic aortic valve without significant stenosis. * 5. Mild mitral regurgitation. * 6. Moderately elevated right ventricular systolic pressure; estimated RVSP 52 mmHg. -admit to the ICU given his recurrent sustained ventricular tachycardia for close monitoring -Patient declines consideration for cardiac catheterization and prefers medical management at this time-he was made aware that he is at high risk for sudden and he is okay with a limited code with chest compressions, cardioversion , and Ambu bag, but does not want to be intubated or mechanically ventilated -Continue Lasix 40 mg IV twice a day and follow electrolytes and renal function -Continue amiodarone drip -Appreciate cardiology consultation -Start Coreg, high-dose statin, and aspirin -Trend serial cardiac biomarkers and give consideration for heparin drip if trend upward significantly Left leg arterial ulceration, severe PAD, cellulitis-lactate is normal, afebrile , no leukocytosis or signs of sepsis. The leg is extremely painful. -Check venous Doppler to rule out DVT -Consider arterial Dopplers however he is not a great candidate for any sort of vascular procedure at this time -Start Rocephin and vancomycin and follow blood cultures Hyperglycemia-with random glucose over 200, most likely with diabetes mellitus type 2 -Check hemoglobin A1c in the morning -Accu-Cheks every before meals at bedtime and sliding scale insulin Abnormal TSH-7.7, free T4 is normal -Repeat as an outpatient, no treatment for now CKD stage III-creatinine is around his baseline at 1.5 -Renally dose medications and avoid nephrotoxins -Follow PRP DVT prophylaxis-heparin subcutaneous Disposition-full code but no mechanical ventilation or intubation Level of Care Critical Care Advanced Directives Existing Living Will: Yes Existing Power of Screen Printer Helper: Yes Resuscitation Status FULL NO [facility] VTE Prophylaxis VTE Risk Assessment Done? Y/N: Yes Risk Level: Low Given or contraindicated: Unfractionated heparin SQ Note Will need strong consideration for home health upon discharge Additional Copies To Jonny Baird M.D.
[2016-09-12] VITALS (23 sets, daily range): BP systolic 102–139; BP diastolic 71–102; PULSE 61–90; TEMP 36.7–37.3; O2SAT 90–100; BMI 31.6
[2016-09-12] MEDS: LORAZEPAM 0.5 MG TAB PO PRN (01:19)
[2016-09-12] MEDS: FENTANYL CITRATE INJ 50 MCG/1 ML 2 ML VIAL IV PRN ×4 (01:24→23:36)
[2016-09-12] MEDS ORDERED: INSULIN ASPART 100 UNITS/ML 3 ML PEN SC ONE (02:00)
[2016-09-12 03:26] LABS: BASO % 0.3 %; BASO ABS # 0.03 K/uL (0-0.2); COMPLETE YES; EOS % 1.4 %; HEMATOCRIT 48.8 % (42-52); IG% 0.3 %; LYMPH % 21.4 %; LYMPH ABS # 1.99 K/uL (1.2-3.4); MEAN CELL VOLUME 91.7 fL (80-100); MEAN CORPUSCULAR HEMOGLOBIN 31.2 pg (25-34); MEAN PLATELET VOLUME 11.1 fL (7.4-10.4); MONO % 7.5 %; NEUT % 69.1 %; PLATELET COUNT 152 K/uL (130-400); RED BLOOD COUNT 5.32 M/uL (4.7-6.1)
[2016-09-12 03:50] LABS: BUN/CREATININE RATIO 18.7 (10-20); CALCIUM 8.3 mg/dl (8.5-10.1); CREATININE 1.5 mg/dl (0.60-1.40); MAGNESIUM 2.1 mg/dl (1.8-2.4); POTASSIUM 3.6 mmol/L (3.5-5.1)
[2016-09-12 03:52] LABS: PHOSPHORUS 3.7 mg/dl (2.5-4.9)
[2016-09-12 04:03] LABS: BETA-HYDROXYBUTYRATE 2.13 mg/dL (0.2-2.81)
[2016-09-12] MEDS: HEPARIN SOD 5000 UNIT/0.5 ML CARP SQ SCH ×3 (06:10→22:00)
--- NOTE | 2016-09-12 07:32 | DIAGNOSTIC IMAGING REPORT ---
LEFT LOWER EXTREMITY VENOUS DOPPLER HISTORY: leg swelling, wound, tenderness, r/o DVT COMPARISON STUDY: Left leg venous Doppler 04/20/2011. FINDINGS: There is normal compressibility, flow, and augmentation within the left lower extremity deep venous system. Left superficial femoral artery occlusion, unchanged. IMPRESSION: No DVT within the left lower extremity. Redemonstration of the left superficial femoral artery occlusion with reconstitution distally. This remains unchanged. Electronically signed by: Dean Blandon M.D. 09/12/2016 7:31 AM Dictated Date/Time: 09/12/2016 7:29 AM
[2016-09-12 07:45] LABS: ESTIMATED AVERAGE GLUCOSE 315 mg/dl; HA1C FLAG Normal (Normal)
[2016-09-12] MEDS: ASPIRIN 81 MG ECTAB PO SCH (07:51)
[2016-09-12] MEDS: FUROSEMIDE INJ 40 MG in SYRINGE 0 ML IV SCH ×2 (07:52→17:06)
[2016-09-12] MEDS: INSULIN ASPART 100 UNITS/ML 3 ML PEN SC SCH ×4 (07:54→20:49)
[2016-09-12] MEDS: CARVEDILOL 3.125 MG TAB PO SCH ×2 (07:56→20:50)
[2016-09-12] MEDS: INSULIN GLARGINE SOLOSTAR 100 UNITS/ML 3 ML PEN SC SCH ×2 (08:05→20:48)
--- NOTE | 2016-09-12 08:18 | DIAGNOSTIC IMAGING REPORT ---
CHEST ONE VIEW PORTABLE HISTORY: Short of breath. COMPARISON: Chest 09/11/2016. FINDINGS: Trace left pleural effusion persists. Heart and megaly and mild central pulmonary vascular congestion is again noted. No new focal lung consolidations. No pneumothorax. IMPRESSION: No significant change. Mild pulmonary vascular congestion and a trace left pleural effusion persist. Electronically signed by: Dean Blandon M.D. 09/12/2016 8:16 AM Dictated Date/Time: 09/12/2016 8:15 AM
[2016-09-12] MEDS ORDERED: ASPIRIN 81 MG ECTAB PO SCH (09:00)
--- NOTE | 2016-09-12 09:25 | CARDIOLOGY PROGRESS NOTE ---
DATE: 09/12/2016 TIME: 8:47 a.m. SUBJECTIVE: I am seeing Mr. Benítez for Dr. Horvath today. He will resume his care tomorrow. Mr. Benítez feels better from a shortness of breath standpoint. His has noted an improvement as well. He describes less PND than he did previously. He denies chest pain, syncope, near syncope or palpitations since yesterday. He agrees that his lower extremity edema has improved. OBJECTIVE: VITAL SIGNS: Temperature 36.7 degrees, heart rate 86 beats per minute, respiration rate 19, blood pressure 136/100 mmHg, oxygen saturation 100% on 2 liters per nasal cannula. I's and O's may not be complete. He states he only had 400 mL of urine output yesterday. He has since had a Torres catheter placed, however. Weight is 88.8 kg. GENERAL: No acute distress. He is alert. NECK: Elevated JVD. CARDIAC: No ventricular heave. Regular with ectopy. Normal S1, S2. No audible murmurs, rubs or gallops. LUNGS: Bibasilar rales. ABDOMEN: Soft, nontender, nondistended. Normoactive bowel sounds. EXTREMITIES: 2+ pitting edema bilateral lower extremities, which extends to above the knees. No cyanosis. Left lower extremity is dressed and is tender. PSYCHIATRIC: Affect appears appropriate. MEDICATIONS: Include amiodarone drip, aspirin 81 mg daily, Lipitor 80 mg at bedtime, carvedilol 3.125 mg p.o. b.i.d., ceftriaxone 1 gram IV q. 24 hours, fentanyl 25 mcg IV q. 1 hour p.r.n., Lasix 40 mg IV b.i.d., heparin 5000 units subcu q. 8 hours, insulin, vancomycin. Blood cultures are pending. LABORATORY DATA: Sodium is 140, potassium 3.6, BUN 28, creatinine 1.5, magnesium 2.1. Troponin 0.159, this is the peak troponin thus far. Albumin 2.8. Glucose 302. White blood cell count is 9.3, hemoglobin 16.6, platelets 152. INR is 1.1. Chest x-ray image personally reviewed. No obvious infiltrate. Small left pleural effusion. No significant findings to suggest CHF. Radiology has interpreted mild pulmonary vascular congestion and trace left pleural effusion. Left lower extremity ultrasound report reviewed. No DVT. Redemonstration of the left superficial femoral artery occlusion with reconstitution distally, which remains unchanged. ECG personally reviewed from this morning demonstrating sinus rhythm with PACs and PVCs. Lateral ST-T wave abnormality. Telemetry personally reviewed. No further ventricular arrhythmias since amiodarone. He does appear to be having intermittent junctional rhythm with sinus rhythm. Echocardiogram final report from yesterday demonstrated moderately dilated left ventricle with severely reduced LV systolic function. EF was 10-20%. Global severe hypokinesis to akinesis. Tissue Doppler suggests elevated left atrial pressure. Mild biatrial dilation. Mild RV dilation with severely reduced systolic function. Mild MR. RVSP 52 mmHg. ASSESSMENT AND PLAN: 1. Sustained ventricular tachycardia: Likely secondary to his cardiomyopathy. He has not had any further arrhythmia on amiodarone. We will start oral amiodarone loading which can be continued for a total of 9 additional days or as further directed by Dr. Horvath. He is not interested in ICD. 2. Acute on chronic systolic congestive heart failure: He has improved clinically and on exam; however, he is still hypervolemic. His improvement is greater than what his fluid balance is recorded. His I's and O's may or may not be accurate from the transition from the ER to the ICU. Would aim for a goal of at least 1 liter negative fluid balance today. This was discussed with nursing staff, Lydia, and if it does not appear that we are achieving this goal, would recommend further diuretic. Continue strict I's and O's, low-sodium diet, and daily weights. 3. Cardiomyopathy: Continue low-dose carvedilol. This can be further titrated over time. He is just due to receive his second dose this morning, and therefore, will not further titrate at this moment. However, his blood pressure and heart rate would certainly allow for further titration in the future, such as tomorrow. SANDY inhibitors have caused the hyperkalemia. HE HAS A LISTED ALLERGY TO SPIRONOLACTONE WELL. He is not interested in ICD. 4. Elevated troponin: Likely secondary to decompensated heart failure and sustained ventricular tachycardia. He is not interested in coronary angiography which would be indicated given his cardiomyopathy. He wants to avoid any invasive measures. He did not have myocardial infarction and he did not present with acute coronary syndrome. 5. Peripheral arterial disease: Continue statin therapy, antiplatelet therapy. He does have symptomatic peripheral arterial disease with significant claudication. He is not interested in invasive measures. 6. Tobacco abuse: Stop smoking. 7. Hypertension: Continue diuretic and carvedilol with titration over time of the beta gavin. 8. Disposition: From a cardiac standpoint, he has not had any further ventricular arrhythmia and plan is to convert to oral amiodarone. From a cardiac standpoint, can be transitioned to PCU. Continue with telemetry. Plan of care has been discussed with the critical care team. Dr. Horvath to resume his cardiology care tomorrow.
[2016-09-12] MEDS: AMIODARONE 200 MG TAB PO SCH ×2 (09:51→20:50)
--- NOTE | 2016-09-12 10:05 | DIAGNOSTIC IMAGING REPORT ---
LEFT LOWER LEG MRI WITHOUT CONTRAST HISTORY: Left leg pain infection TECHNIQUE: Multiplanar multisequence MRI of the left lower leg was performed without the use of intravenous contrast. COMPARISON STUDY: Left leg venous Doppler 04/20/2011. FINDINGS: There is significant diffuse subcutaneous edema throughout the left lower leg. Normal signal intensity within the left lower leg muscles. No loculated fluid collections to suggest an abscess on this noncontrast study. Normal marrow signal intensity seen within the visualized tibia and fibula. No cortical destruction or periosteal reaction to suggest osteomyelitis. No fracture or dislocation. IMPRESSION: 1. Diffuse subcutaneous edema throughout the left lower leg. 2. No evidence for osteomyelitis. Electronically signed by: Dean Blandon M.D. 09/12/2016 10:04 AM Dictated Date/Time: 09/12/2016 10:01 AM
[2016-09-12] MEDS: AMIODARONE / D5W 200 ML IV SCH (11:14)
--- NOTE | 2016-09-12 11:26 | Pharmacy Progress Note ---
Pharmacy Antibiotic Consult Date of Service: Sep 12, 2016. Pharmacy Dosing Scope Pharmacy is consulted to initiate vancomycin IV dosing therapy, order appropriate labs and adjust drug dose/frequency. Subjective The patient is a 76 year old male admitted on Sep 11, 2016 at 18:10 with questionable pyomyositis. Objective Height (Feet): 5 Height (Inches): 6.00 Weight (Kilograms): 88.800 Lab Results (24hrs): Laboratory Tests Test 09/11/16 14:35 09/12/16 03:18 BUN/Creatinine Ratio 18.7 18.7 Blood Urea Nitrogen 28 mg/dl 28 mg/dl Creatinine 1.50 mg/dl 1.50 mg/dl White Blood Count 9.18 K/uL 9.30 K/uL Red Blood Count 5.51 M/uL 5.32 M/uL Hemoglobin 17.0 g/dL 16.6 g/dL Hematocrit 50.3 % 48.8 % Mean Corpuscular Volume 91.3 fL 91.7 fL Mean Corpuscular Hemoglobin 30.9 pg 31.2 pg Mean Corpuscular Hemoglobin Concent 33.8 g/dl 34.0 g/dl Platelet Count 161 K/uL 152 K/uL Mean Platelet Volume 11.1 fL 11.1 fL Neutrophils (%) (Auto) 65.0 % 69.1 % Lymphocytes (%) (Auto) 26.4 % 21.4 % Monocytes (%) (Auto) 5.7 % 7.5 % Eosinophils (%) (Auto) 1.9 % 1.4 % Basophils (%) (Auto) 0.7 % 0.3 % Neutrophils # (Auto) 5.98 K/uL 6.42 K/uL Lymphocytes # (Auto) 2.42 K/uL 1.99 K/uL Monocytes # (Auto) 0.52 K/uL 0.70 K/uL Eosinophils # (Auto) 0.17 K/uL 0.13 K/uL Basophils # (Auto) 0.06 K/uL 0.03 K/uL Micro Results: Item Value Date Time MRSA DNA Surveillance Screen - Final Complete 09/11/16 1945 Nasal Specimen Negative for MRSA by DNA Probe Blood Culture Received 09/11/16 1435 Blood Pending Blood Culture Received 09/11/16 1430 Blood Pending Recent Pertinent Medications Item Value Date Time Ceftriaxone Sodium 1 gm 09/11/16 1644 (Rocephin Inj) NOW STAT/IV ONE TIME DOSE IN ED 09/11/16 1650 Assessment & Plan Assessment: * Left leg arterial ulceration, severe PAD, cellulitis-lactate is normal, afebrile, no leukocytosis or signs of sepsis. * chronic in nature, possibly acute process, additionally * The leg is extremely painful. * Start Rocephin and vancomycin and follow blood cultures Plan: * Begin/continue vancomycin and ceftriaxone IV at this time * De-escalate vancomycin when MRI and blood cultures negative per Dr. Alberto Vancomycin: * Loading dose: 2000 mg IV X 1 dose * Maintenance dose: 1500mg IV every 24 hours * Goal trough: 15-20mcg/mL until blood cultures result Ceftriaxone: * Continue 1000mg IV every 24 hours Labs: * Vancomycin trough at steady state on 09/14/16 prior to the 16:00 dose * PRP and CBC ordered by provider for 09/13 and 09/14 Pharmacy will continue to follow and will adjust dose/frequency as necessary. Thank you
[2016-09-12] MEDS ORDERED: CHLOROTHIAZIDE INJ 250 MG in DEXTROSE 5% 50ML 50 ML IV SCH (11:30)
--- NOTE | 2016-09-12 11:33 | Pharmacy Progress Note ---
Glycemic Control Intl Consult Date of Service Sep 12, 2016. Scope Glycemic Pharmacist consulted by Dr Kruger on 09/11/16 for glycemic control and to write orders per [facility] inpatient glycemic control protocol Objective Weight (Kilograms): 88.800 Accuchecks BSG (last 24hrs): Test 09/11/16 14:35 09/11/16 21:04 09/12/16 03:00 09/12/16 03:18 Random Glucose 329 mg/dl (70-99) 302 mg/dl (70-99) Bedside Glucose 288 mg/dl (70-99) 290 mg/dl (70-99) Test 09/12/16 07:48 09/12/16 11:09 Bedside Glucose 228 mg/dl (70-99) 115 mg/dl (70-99) Laboratory Data (last 24hrs) Test 09/11/16 14:35 09/12/16 03:18 Anion Gap 12.0 mmol/L 12.0 mmol/L BUN/Creatinine Ratio 18.7 18.7 Blood Urea Nitrogen 28 mg/dl 28 mg/dl Creatinine 1.50 mg/dl 1.50 mg/dl Potassium Level 3.8 mmol/L 3.6 mmol/L Sodium Level 136 mmol/L 140 mmol/L White Blood Count 9.18 K/uL 9.30 K/uL Red Blood Count 5.51 M/uL 5.32 M/uL Hemoglobin 17.0 g/dL 16.6 g/dL Hematocrit 50.3 % 48.8 % Mean Corpuscular Volume 91.3 fL 91.7 fL Mean Corpuscular Hemoglobin 30.9 pg 31.2 pg Mean Corpuscular Hemoglobin Concent 33.8 g/dl 34.0 g/dl Platelet Count 161 K/uL 152 K/uL Mean Platelet Volume 11.1 fL 11.1 fL Neutrophils (%) (Auto) 65.0 % 69.1 % Lymphocytes (%) (Auto) 26.4 % 21.4 % Monocytes (%) (Auto) 5.7 % 7.5 % Eosinophils (%) (Auto) 1.9 % 1.4 % Basophils (%) (Auto) 0.7 % 0.3 % Neutrophils # (Auto) 5.98 K/uL 6.42 K/uL Lymphocytes # (Auto) 2.42 K/uL 1.99 K/uL Monocytes # (Auto) 0.52 K/uL 0.70 K/uL Eosinophils # (Auto) 0.17 K/uL 0.13 K/uL Basophils # (Auto) 0.06 K/uL 0.03 K/uL Hemoglobin A1c 12.6 % HbA1c Test 09/12/16 03:18 Hemoglobin A1c 12.6 % (4.5-5.6) H Recent Pertinent Medications Outpatient Anti-diabetic Regimen: * n/a * A1c = 12.6 % 09/12/16 The patient is currently receiving: * Basal insulin: None at time of consult * Correctional Insulin: NovoLog Correction per scale AC/HS Goal Range: Low 140 mg/dL - High 180 mg/dL Correction Factor: 25 mg/dL/unit * Prandial insulin: Per carb ratio of 1 unit per 10 grams CHO consumed Risk Factors for Insulin Resistance: * Steroids: none * Infection: ceftriaxone and vancomycin - day #2 of each * Pressors: none * IVF: amiodarone gtt (mixed in dextrose) - will stop tonight * Recent Surgery: none * Diet: Low Na 1500mL diet Assessment & Plan ASSESSMENT: * ADA & AACE recommend a goal blood sugar range 140-180 mg/dl for the majority of critically ill & non-critically ill patients. However, more stringent targets may be selected in individual cases. 09/12/16 * 76 y/o who is not on any diabetic medications prior to admission. Presenting with SVT and fluid overload as well as hyperglycemia * NovoLog started on admission * BSGs continue to be elevated this AM (BSG 302mg/dL on AM PRP) * begin basal insulin at this time * A1c resulted and shows poor blood glucose control as an outpatient - non- diagnosed diabetic? * may require treatment at discharge (insulin vs. orals vs. other) PLAN FOR INPATIENT GLYCEMIC CONTROL: * Begin weight based Lantus * 0 units if BSG less than 140mg/dL * 10 units if BSG 140-180mg/dL * 15 units if BSG is above 180mg/dL * Continue NovoLog AC and HS * Correction factor: 25 mg/dL/unit * Carb ratio: 1 unit per 9 g of CHO consumed * Goal 140-180mg/dL per ADA recommendations * A1c -current * add to discharge instructions RECOMMENDATIONS FOR DISCHARGE: * pending * Please note that the plan above was derived based on current level of insulin resistance and hospital stress. These recommendations are appropriate for inpatient admission only. Plan of care upon discharge will need to be reassessed to avoid potential outpatient hypo/hyperglycemia. Thank you.
[2016-09-12] MEDS ORDERED: FUROSEMIDE INJ 80 MG in SYRINGE 0 ML IV ONE (12:00)
[2016-09-12] MEDS ORDERED: VANCOMYCIN INJ 1,500 MG in SODIUM CHLORIDE 0.9% 500ML 500 ML IV SCH (16:00)
--- NOTE | 2016-09-12 18:46 | Progress Note ---
Subjective Date of Service: Sep 12, 2016. Subjective Pt evaluation today including: conversation w/ patient, conversation w/ family , physical exam, chart review, lab review, review of inpatient medication list feeling much better than whwne he came in. notes breathign significantly improved. L leg still hurts but otherwise feeling better, feeling improved.. notes that he stopped meds/etc because getting to doctor visits was too difficult, so when he stopped going to visits he just stopped meds would like follow up but needs to have it in a way he can meet Problem List Medical Problems: (1) Dyspnea Status: Acute Review of Systems Respiratory: + shortness of breath (improving) ros otherwise negative except for as above Objective Vital Signs Date Time Temp Pulse Resp B/P Pulse Ox O2 Delivery O2 Flow Rate FiO2 09/12/16 18:00 79 16 102/71 94 Room Air 09/12/16 16:00 36.9 61 22 121/93 99 Room Air 09/12/16 13:50 67 21 97 09/12/16 12:35 82 22 90 09/12/16 12:20 69 0 98 09/12/16 12:05 73 24 97 09/12/16 12:00 100 Nasal Cannula 2.0 09/12/16 12:00 79 12 121/87 97 09/12/16 11:50 89 23 93 09/12/16 10:05 84 3 09/12/16 10:00 86 27 139/96 09/12/16 09:50 90 19 136/100 100 2.0 09/12/16 08:05 86 18 09/12/16 08:01 90 19 136/100 09/12/16 08:00 100 Nasal Cannula 2.0 09/12/16 08:00 36.7 90 19 136/100 100 Nasal Cannula 2.0 09/12/16 08:00 Nasal Cannula 09/12/16 07:50 82 22 100 09/12/16 05:01 90 25 137/102 94 Nasal Cannula 2.0 09/12/16 04:25 94 Room Air 09/12/16 04:01 37.3 72 7 111/75 98 Nasal Cannula 2.0 09/12/16 03:00 86 25 111/93 98 Nasal Cannula 2.0 09/12/16 02:01 62 18 117/71 93 Nasal Cannula 2.0 09/12/16 01:14 86 17 129/74 Nasal Cannula 2.0 09/12/16 00:06 94 Room Air 09/11/16 23:01 93 16 110/88 91 Room Air 09/11/16 22:00 37.0 77 22 120/81 95 Room Air 09/11/16 21:07 89 130/87 94 Room Air 09/11/16 21:00 93 132/84 95 Room Air 09/11/16 20:01 87 107/68 95 Room Air 09/11/16 19:30 37.0 91 20 130/87 95 Room Air 09/11/16 18:44 89 18 116/94 96 Room Air Physical Exam General Appearance: no apparent distress Eyes: EOMI ENT: hearing grossly normal Neck: trachea midline Respiratory/Chest: no respiratory distress, no accessory muscle use, + pertinent finding (llungs coarse faitn basilar rales) Cardiovascular: regular rate, rhythm (rate controlled) Neurologic/Psychiatric: blueprinter II-XII nml as tested Skin: normal color, warm/dry Laboratory Results Last 24 Hours Test 09/11/16 21:04 09/11/16 21:21 09/12/16 03:00 09/12/16 03:18 Bedside Glucose 288 mg/dl 290 mg/dl Troponin I 0.151 ng/ml 0.159 ng/ml White Blood Count 9.30 K/uL Red Blood Count 5.32 M/uL Hemoglobin 16.6 g/dL Hematocrit 48.8 % Mean Corpuscular Volume 91.7 fL Mean Corpuscular Hemoglobin 31.2 pg Mean Corpuscular Hemoglobin Concent 34.0 g/dl Platelet Count 152 K/uL Mean Platelet Volume 11.1 fL Neutrophils (%) (Auto) 69.1 % Lymphocytes (%) (Auto) 21.4 % Monocytes (%) (Auto) 7.5 % Eosinophils (%) (Auto) 1.4 % Basophils (%) (Auto) 0.3 % Neutrophils # (Auto) 6.42 K/uL Lymphocytes # (Auto) 1.99 K/uL Monocytes # (Auto) 0.70 K/uL Eosinophils # (Auto) 0.13 K/uL Basophils # (Auto) 0.03 K/uL RDW Standard Deviation 48.4 fL RDW Coefficient of Variation 14.5 % Immature Granulocyte % (Auto) 0.3 % Immature Granulocyte # (Auto) 0.03 K/uL Sodium Level 140 mmol/L Potassium Level 3.6 mmol/L Chloride Level 103 mmol/L Carbon Dioxide Level 25 mmol/L Anion Gap 12.0 mmol/L Blood Urea Nitrogen 28 mg/dl Creatinine 1.50 mg/dl Est Creatinine Clear Calc Drug Dose 45.1 ml/min Estimated GFR () 52.4 Estimated GFR (Non- 45.2 BUN/Creatinine Ratio 18.7 Random Glucose 302 mg/dl Estimated Average Glucose 315 mg/dl Hemoglobin A1c 12.6 % Calcium Level 8.3 mg/dl Phosphorus Level 3.7 mg/dl Magnesium Level 2.1 mg/dl Total Bilirubin 0.4 mg/dl Direct Bilirubin 0.2 mg/dl Aspartate Amino Transf (AST/SGOT) 23 U/L Alanine Aminotransferase (ALT/SGPT) 34 U/L Alkaline Phosphatase 100 U/L Total Protein 6.8 gm/dl Albumin 2.8 gm/dl Beta-Hydroxybutyric Acid 2.13 mg/dL Test 09/12/16 07:48 09/12/16 09:30 09/12/16 11:09 09/12/16 16:41 Bedside Glucose 228 mg/dl 115 mg/dl 150 mg/dl Troponin I 0.170 ng/ml Assessment and Plan Acute on chronic severe systolic CHF, sustained ventricular tachycardia, severe PAD, hypertension, dyslipidemia and presumably ischemic cardiomyopathy although has never had a cardiac catheterization. -med management as current - doing better -will need to work to transition to outpt med regimen that he can adhere to, and have hopefully at least home nursing for labs and vitals, clinical assessments to better communicate with PCP. also ?anyone locally who does home visits that could help facilitate his care? Left leg arterial ulceration, severe PAD, cellulitis-lactate is normal, afebrile , no leukocytosis or signs of sepsis. The leg is extremely painful. -Check venous Doppler to rule out DVT -Consider arterial Dopplers however he is not a great candidate for any sort of vascular procedure at this time -continue Rocephin and vancomycin -consult wound doc Hyperglycemia-/uncontrolled DM2, most likely with diabetes mellitus type 2 -A1c >12 -education -Accu-Cheks every before meals at bedtime and sliding scale insulin Abnormal TSH-7.7, free T4 is normal -Repeat as an outpatient, no treatment for now CKD stage III-creatinine is around his baseline at 1.5 -Renally dose medications and avoid nephrotoxins -Follow PRP DVT prophylaxis-heparin subcutaneous Disposition-full code but no mechanical ventilation or intubation stable for telemetry
[2016-09-12] MEDS: ATORVASTATIN 40 MG TAB PO SCH (20:50)
[2016-09-12] MEDS: CEFTRIAXONE SOD INJ 1 GM in DEXTROSE 5% ADD-VANTAGE 50ML 50 ML IV SCH (20:52)
[2016-09-12] MEDS ORDERED: [UNRECOGNIZED DRUG - REMARK] ONE (21:00)
[2016-09-13] VITALS (8 sets, daily range): BP systolic 90–152; BP diastolic 63–95; PULSE 58–81; TEMP 36.4–36.8; O2SAT 96–100; BMI 31.6
[2016-09-13 00:59] LABS: BASO % 0.5 %; BASO ABS # 0.04 K/uL (0-0.2); EOS % 1.7 %; HEMATOCRIT 48.4 % (42-52); IG% 0.1 %; LYMPH % 22.5 %; LYMPH ABS # 1.86 K/uL (1.2-3.4); MEAN CELL VOLUME 91.1 fL (80-100); MEAN CORPUSCULAR HEMOGLOBIN 30.9 pg (25-34); MEAN PLATELET VOLUME 11.2 fL (7.4-10.4); MONO % 9.6 %; NEUT % 65.6 %; PLATELET COUNT 141 K/uL (130-400); RED BLOOD COUNT 5.31 M/uL (4.7-6.1); WHITE BLOOD COUNT 8.27 K/uL (4.8-10.8)
[2016-09-13 01:01] LABS: COMPLETE YES; MEAN CORPUSCULAR HGB CONC 33.9 g/dl (32-36)
[2016-09-13 01:27] LABS: CALCIUM 8.6 mg/dl (8.5-10.1); CREATININE 1.6 mg/dl (0.60-1.40); MAGNESIUM 2.1 mg/dl (1.8-2.4); POTASSIUM 2.9 mmol/L (3.5-5.1)
[2016-09-13] MEDS ORDERED: POTASSIUM CHLORIDE 20 MEQ TABCR PO STA (01:39)
[2016-09-13] MEDS ORDERED: NURSING VERBAL MED ORDER ONE ×3 (01:45→14:00)
[2016-09-13] MEDS: FENTANYL CITRATE INJ 50 MCG/1 ML 2 ML VIAL IV PRN ×4 (01:55→10:29)
[2016-09-13] MEDS: POTASSIUM CHLR 10MEQ / WTR IV SCH (01:56)
[2016-09-13] MEDS: HEPARIN SOD 5000 UNIT/0.5 ML CARP SQ SCH ×3 (06:00→21:48)
--- NOTE | 2016-09-13 07:37 | DIAGNOSTIC IMAGING REPORT ---
CHEST ONE VIEW PORTABLE CLINICAL HISTORY: Congestive failure COMPARISON STUDY: 09/12/2016 FINDINGS: The heart remains enlarged. There is no current evidence of failure. There is no focal pulmonary consolidation. There is minor blunting of the left lateral costophrenic angle.[ IMPRESSION: Cardiomegaly. Suspected trace left pleural effusion. No evidence of focal pulmonary consolidation. No current evidence of failure Electronically signed by: Bryan Izquierdo M.D. 09/13/2016 7:35 AM Dictated Date/Time: 09/13/2016 7:35 AM
[2016-09-13] MEDS: INSULIN ASPART 100 UNITS/ML 3 ML PEN SC SCH ×5 (08:44→21:44)
[2016-09-13] MEDS: FUROSEMIDE INJ 40 MG in SYRINGE 0 ML IV SCH (08:45)
[2016-09-13] MEDS: INSULIN GLARGINE SOLOSTAR 100 UNITS/ML 3 ML PEN SC SCH ×2 (08:46→21:48)
[2016-09-13] MEDS: ASPIRIN 81 MG ECTAB PO SCH (10:25)
[2016-09-13] MEDS: CARVEDILOL 3.125 MG TAB PO SCH ×2 (10:25→21:44)
[2016-09-13] MEDS: AMIODARONE 200 MG TAB PO SCH ×2 (10:25→21:44)
[2016-09-13 11:56] LABS: BUN/CREATININE RATIO 21.4 (10-20); CALCIUM 8.7 mg/dl (8.5-10.1); CREATININE 1.8 mg/dl (0.60-1.40); POTASSIUM 3.7 mmol/L (3.5-5.1)
[2016-09-13] MEDS ORDERED: POTASSIUM CHLORIDE 10 MEQ TABCR PO ONE (12:45)
--- NOTE | 2016-09-13 13:22 | Pharmacy Progress Note ---
Glycemic Control: Progress Nt Date of Service Sep 13, 2016. Scope Glycemic Pharmacist consulted by Dr Kruger on 09/11/16 for glycemic control and to write orders per [facility] inpatient glycemic control protocol. Objective Accuchecks BSG (last 24hrs): Test 09/12/16 16:41 09/12/16 20:47 09/13/16 00:40 09/13/16 06:16 Bedside Glucose 150 mg/dl (70-99) 212 mg/dl (70-99) 143 mg/dl (70-99) Random Glucose 177 mg/dl (70-99) Test 09/13/16 11:14 09/13/16 11:22 Bedside Glucose 178 mg/dl (70-99) Random Glucose 185 mg/dl (70-99) Laboratory Data (last 24hrs) Test 09/13/16 00:40 09/13/16 11:22 Anion Gap 9.0 mmol/L 8.0 mmol/L BUN/Creatinine Ratio 21.0 21.4 Blood Urea Nitrogen 34 mg/dl 39 mg/dl Creatinine 1.60 mg/dl 1.80 mg/dl Potassium Level 2.9 mmol/L 3.7 mmol/L Sodium Level 142 mmol/L 139 mmol/L White Blood Count 8.27 K/uL Red Blood Count 5.31 M/uL Hemoglobin 16.4 g/dL Hematocrit 48.4 % Mean Corpuscular Volume 91.1 fL Mean Corpuscular Hemoglobin 30.9 pg Mean Corpuscular Hemoglobin Concent 33.9 g/dl Platelet Count 141 K/uL Mean Platelet Volume 11.2 fL Neutrophils (%) (Auto) 65.6 % Lymphocytes (%) (Auto) 22.5 % Monocytes (%) (Auto) 9.6 % Eosinophils (%) (Auto) 1.7 % Basophils (%) (Auto) 0.5 % Neutrophils # (Auto) 5.43 K/uL Lymphocytes # (Auto) 1.86 K/uL Monocytes # (Auto) 0.79 K/uL Eosinophils # (Auto) 0.14 K/uL Basophils # (Auto) 0.04 K/uL HbA1c: Test 09/12/16 03:18 Hemoglobin A1c 12.6 %(4.5-5.6) H Recent Pertinent Medications Outpatient Anti-diabetic Regimen: * n/a * A1c = 12.6 % 09/12/16 The patient is currently receiving: * Basal insulin: Lantus 15 units SQ BID * Correctional Insulin: NovoLog Correction per scale AC/HS Goal Range: Low 140 mg/dL - High 180 mg/dL Correction Factor: 25 mg/dL/unit * Prandial insulin: Per carb ratio of 1 unit per 9 grams CHO consumed Risk Factors for Insulin Resistance: * Steroids: none * Infection: ceftriaxone and vancomycin - day #3 of each * Pressors: none * IVF: none * Recent Surgery: none * Diet: Low Na / 1500mL diet / T2DM Assessment & Plan ASSESSMENT: * ADA & AACE recommend a goal blood sugar range 140-180 mg/dl for the majority of critically ill & non-critically ill patients. However, more stringent targets may be selected in individual cases. 09/12/16 * 76 y/o who is not on any diabetic medications prior to admission. Presenting with SVT and fluid overload as well as hyperglycemia * NovoLog started on admission * BSGs continue to be elevated this AM (BSG 302mg/dL on AM PRP) * begin basal insulin at this time * A1c resulted and shows poor blood glucose control as an outpatient - non- diagnosed diabetic? * may require treatment at discharge (insulin vs. orals vs. other) 09/13/16 * BSGs improved after the initiation of basal/bolus regimen * Continue weight based dosing at this time * No h/o DM on admission and poor followup with outpatient providers * may need diabetic medications at discharge * CDE met with - concern that patient may be unreceptive PLAN FOR INPATIENT GLYCEMIC CONTROL: * Begin weight based Lantus * 0 units if BSG less than 140mg/dL * 10 units if BSG 140-180mg/dL * 15 units if BSG is above 180mg/dL * Continue NovoLog AC and HS * Correction factor: 25 mg/dL/unit * Carb ratio: 1 unit per 7 g of CHO consumed * Goal 140-180mg/dL per ADA recommendations * A1c -current * add to discharge instructions RECOMMENDATIONS FOR DISCHARGE: * pending, will depend on patient agreeableness/CDE recommendations * Please note that the plan above was derived based on current level of insulin resistance and hospital stress. These recommendations are appropriate for inpatient admission only. Plan of care upon discharge will need to be reassessed to avoid potential outpatient hypo/hyperglycemia. Thank you.
--- NOTE | 2016-09-13 13:55 | PROGRESS NOTE ---
DATE: 09/13/2016 SUBJECTIVE: The patient was seen by me this morning in the intensive care unit. He is a telemetry border. His main complaint is continued left lower leg pain. He states it has prevented him from sleeping overnight. He is concerned that the continued pain will have an adverse effect on his heart. He denies any chest pain. No palpitations, lightheadedness, or syncope. Mild and constant nausea. No fevers or chills. The edema in his lower and upper legs has decreased since admission. He is not wearing any supplemental oxygen at time of my exam. He denies any current dyspnea. He states that overnight he did feel short of breath. CURRENT MEDICATIONS: Ceftriaxone 1 gram IV daily, vancomycin 1500 mg IV daily, aspirin 81 mg daily, Lantus insulin b.i.d. per protocol, amiodarone 400 mg b.i.d., furosemide 40 mg IV b.i.d., subQ heparin 5000 units q. 8 hours, carvedilol 3.125 mg b.i.d., atorvastatin 80 mg at bedtime, NovoLog sliding-scale insulin, fentanyl 25 mcg IV q. 1 hours as needed for pain, and several other p.r.n. medications. ALLERGIES AND ADVERSE DRUG REACTIONS: CLOPIDOGREL, DILTIAZEM, HYDRALAZINE, ISOSORBIDE, LISINOPRIL, METOLAZONE, PROPYLHEXEDRINE, SPIRONOLACTONE. MONITOR HISTORY: Over the past 24 hours reveals sinus rhythm, premature ventricular beats, episodes of accelerated junctional rhythm competing with sinus rhythm. No ventricular tachycardia. PHYSICAL EXAMINATION: VITAL SIGNS: This morning with oral temperature 36.4, pulse 70, blood pressure 133/71, pulse oximetry 99% on room air. Repeat room air oxygen saturation 98%. GENERAL APPEARANCE: Shows him to be lying in bed. No obvious distress. NECK: Jugular venous pressure approximately 8 cm. LUNGS: Scant bibasilar rales. Decreased breath sounds both bases. HEART: Regular rate and rhythm. S1, S2 normal. No S3 or S4. No murmur or rub. ABDOMEN: Soft. Nontender. No palpable masses or organomegaly. No bruits. Normal bowel sounds. EXTREMITIES: 1+ pretibial edema bilaterally. Trace upper leg edema bilaterally. Marked tenderness of the left pretibial region. This was with even light touch. Erythema left pretibial region. No significant increased warmth of the left lower leg compared to the right leg. NEUROLOGIC: Alert and oriented x3. Motor grossly intact. PSYCHIATRIC: Affect is normal. Intake and output yesterday . Labs today with sodium 139, potassium 3.7, chloride 101, carbon dioxide 30, BUN 39, creatinine 1.80, random glucose 185. Magnesium 2.0. CBC with WBC 8.27, hemoglobin 16.4, hematocrit 48.4, platelet count 141. Echocardiogram performed on September 11 with LV ejection fraction 10%-20%. Severe global hypokinesis to akinesis. Severe right ventricular systolic dysfunction. Moderate pulmonary hypertension. ASSESSMENT: 1. Severe left ventricular systolic dysfunction. Severe right ventricular systolic dysfunction. Acute on chronic systolic heart failure. His peripheral edema has decreased since admission. Negative fluid balance yesterday. Scant rales on exam today. Good oxygen saturation on room air. 2. Cellulitis, left leg. 3. Sustained ventricular tachycardia on admission. No ventricular tachycardia over the past 24 hours. 4. Junctional rhythm. Likely secondary to amiodarone as well as the carvedilol. 5. Renal insufficiency. BUN and creatinine have increased since yesterday. Likely secondary to diuresis. Also, decreased renal perfusion secondary to decreased cardiac output. 6. Complaint of severe pain in left leg. This is the patient's main concern today. He is borderline angry regarding this. He feels that he is not having adequate pain control. RECOMMENDATIONS: 1. Will decrease amiodarone to p.o. 200 mg b.i.d. in light of the junctional rhythm. 2. Continue carvedilol at current dose. If there is no further significant junctional rhythms or bradycardias, will increase dose to 6.25 mg b.i.d. tomorrow. 3. Continue intravenous diuretics. If his BUN and creatinine continue to rise and there is still evidence of heart failure on exam would then consider intravenous inotropic support. 4. Monitor her renal function closely. 5. Continue antibiotics for cellulitis. 6. Pain management by the hospitalist team. Could also consider pain management consultation. As stated above, this is the patient's main concern today. 7. The patient refuses an ICD.
[2016-09-13] MEDS: OXYCODONE/ACETAMINOPHEN 5-325 TAB PO PRN ×2 (15:04→21:46)
[2016-09-13 17:01] LABS: URINE APPEARANCE CLOUDY (CLEAR); URINE COLOR ORANGE; URINE NITRITE NEG (NEG); URINE PH 5.5 (4.5-7.5); URINE SPECIFIC GRAVITY 1.015 (1.000-1.030); UROBILINOGEN NEG (NEG)
[2016-09-13 17:09] LABS: MANUAL MICROSCOPIC REQUIRED? YES; REVIEW REQ? NO; URINE BILIRUBIN NEG (NEG)
[2016-09-13 17:17] LABS: URINE RBC >30 /hpf (0-4)
[2016-09-13 17:18] LABS: URINE BACTERIA 1+ (NEG); ZZUR CULT IF INDIC CLEAN CATCH YES
--- NOTE | 2016-09-13 18:58 | Progress Note ---
Subjective Date of Service: Sep 13, 2016. Subjective Pt evaluation today including: conversation w/ patient, physical exam, chart review, lab review, review of inpatient medication list breathing feeling better main concern today is the pain - notes that legs swell - and they were swelling at home - was taking lasix before and it would help - then for the last month or two despite increasing the lasix the swelling wouldn't improve. then the skin started to split and ulcerate - sicne then things really hurting. notes that pain meds help but then wear off "i feel like they're averse to treating my pain, can't you do like a drip or something?" no other complaints today Problem List Medical Problems: (1) Dyspnea Status: Acute Review of Systems Respiratory: No shortness of breath Cardiac: No chest pain Musculoskeletal: + problem reported (leg pain) Skin: + color change (redness leg/calf and around mccann ulcer) ros otherwise negative except for as above Objective Vital Signs Date Time Temp Pulse Resp B/P Pulse Ox O2 Delivery O2 Flow Rate FiO2 09/13/16 16:00 Room Air 09/13/16 15:13 36.8 68 18 90/63 99 Room Air 09/13/16 12:00 36.5 80 24 134/84 98 Room Air 09/13/16 12:00 Room Air 09/13/16 08:00 36.6 76 26 121/86 98 Room Air 09/13/16 08:00 98 Room Air 09/13/16 04:00 36.4 70 15 133/71 100 Room Air 09/13/16 04:00 99 Nasal Cannula 2.0 09/13/16 00:00 36.4 58 12 111/76 98 Room Air 09/13/16 00:00 99 Nasal Cannula 2.0 09/12/16 20:00 99 Nasal Cannula 2.0 09/12/16 20:00 36.7 76 16 135/90 99 Room Air Physical Exam General Appearance: no apparent distress Eyes: EOMI ENT: hearing grossly normal Neck: trachea midline Respiratory/Chest: no respiratory distress, no accessory muscle use Neurologic/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: 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 nml as tested, alert, normal mood/affect Skin: warm/dry, + pertinent finding (LLE ulcer dressed, surrounding erythema slowly resolving oil process stillman but less than yesterday no areas of fluctuance) Laboratory Results Last 24 Hours Test 09/12/16 20:47 09/13/16 00:40 09/13/16 06:16 09/13/16 11:14 Bedside Glucose 212 mg/dl 143 mg/dl 178 mg/dl White Blood Count 8.27 K/uL Red Blood Count 5.31 M/uL Hemoglobin 16.4 g/dL Hematocrit 48.4 % Mean Corpuscular Volume 91.1 fL Mean Corpuscular Hemoglobin 30.9 pg Mean Corpuscular Hemoglobin Concent 33.9 g/dl Platelet Count 141 K/uL Mean Platelet Volume 11.2 fL Neutrophils (%) (Auto) 65.6 % Lymphocytes (%) (Auto) 22.5 % Monocytes (%) (Auto) 9.6 % Eosinophils (%) (Auto) 1.7 % Basophils (%) (Auto) 0.5 % Neutrophils # (Auto) 5.43 K/uL Lymphocytes # (Auto) 1.86 K/uL Monocytes # (Auto) 0.79 K/uL Eosinophils # (Auto) 0.14 K/uL Basophils # (Auto) 0.04 K/uL RDW Standard Deviation 48.4 fL RDW Coefficient of Variation 14.5 % Immature Granulocyte % (Auto) 0.1 % Immature Granulocyte # (Auto) 0.01 K/uL Sodium Level 142 mmol/L Potassium Level 2.9 mmol/L Chloride Level 104 mmol/L Carbon Dioxide Level 29 mmol/L Anion Gap 9.0 mmol/L Blood Urea Nitrogen 34 mg/dl Creatinine 1.60 mg/dl Est Creatinine Clear Calc Drug Dose 42.3 ml/min Estimated GFR () 48.5 Estimated GFR (Non- 41.8 BUN/Creatinine Ratio 21.0 Random Glucose 177 mg/dl Calcium Level 8.6 mg/dl Magnesium Level 2.1 mg/dl Test 09/13/16 11:22 09/13/16 16:20 09/13/16 16:24 Sodium Level 139 mmol/L Potassium Level 3.7 mmol/L Chloride Level 101 mmol/L Carbon Dioxide Level 30 mmol/L Anion Gap 8.0 mmol/L Blood Urea Nitrogen 39 mg/dl Creatinine 1.80 mg/dl Est Creatinine Clear Calc Drug Dose 37.6 ml/min Estimated GFR () 42.0 Estimated GFR (Non- 36.3 BUN/Creatinine Ratio 21.4 Random Glucose 185 mg/dl Calcium Level 8.7 mg/dl Magnesium Level 2.0 mg/dl Urine Color ORANGE Urine Appearance CLOUDY Urine pH 5.5 Urine Specific [place] 1.015 Urine Protein 2+ Urine Glucose (UA) NEG Urine Ketones NEG Urine Occult Blood 3+ Urine Nitrite NEG Urine Bilirubin NEG Urine Urobilinogen NEG Urine Leukocyte Esterase SMALL Urine RBC >30 /hpf Urine WBC 5-10 /hpf Urine Epithelial Cells 0-5 /lpf Urine Bacteria 1+ Bedside Glucose 126 mg/dl Assessment and Plan Acute on chronic severe systolic CHF, sustained ventricular tachycardia, severe PAD, hypertension, dyslipidemia and presumably ischemic cardiomyopathy although has never had a cardiac catheterization. -doing surprisingly well. continue current med management. Left leg arterial ulceration, severe PAD, cellulitis-lactate is normal, afebrile , no leukocytosis or signs of sepsis. The leg is extremely painful. -venous dopplers negative -Consider arterial Dopplers however he is not a great candidate for any sort of vascular procedure at this time -continue Rocephin, MRSA negative (although nose) and cultures negative - but with his general lack of exposure to the healthcare system - lower risk -ongoing wound care -vascular eval - either as outpt if improves as expected with local care or inpatient if would fails to show proper healing -med management for PAD same as for CAD Hyperglycemia-/uncontrolled DM2, most likely with diabetes mellitus type 2 -A1c >12 -education -Accu-Cheks every before meals at bedtime and sliding scale insulin; inpatient sugars at goal Abnormal TSH-7.7, free T4 is normal -Repeat as an outpatient, no treatment for now CKD stage III-creatinine is around his baseline at 1.5 -Renally dose medications and avoid nephrotoxins -Follow BMP DVT prophylaxis-heparin subcutaneous leg edema -given some response to diuretic but not totally - as per his hx - suspect venous insufficiency in addition to CHF leg pain -from ulcer, cellulitis - extensive discussion with pt on goals (pain control with minimal adverse effects -- particularly on breathing, and trying to avoid inevitable bowel effects) - for now change from fentanyl IV to percocet PO for longer duration, can continue to stepwise escalate as needed junctional rhythm -reduce amiodarone -may need to reduce coreg -asymptomatic hypokalemia -repleted -mag 2.0 Disposition-full code but no mechanical ventilation or intubation stable on telemetry
[2016-09-13] MEDS: CEFTRIAXONE SOD INJ 1 GM in DEXTROSE 5% ADD-VANTAGE 50ML 50 ML IV SCH (21:42)
[2016-09-13] MEDS: ATORVASTATIN 40 MG TAB PO SCH (21:43)
[2016-09-13] MEDS: LORAZEPAM 0.5 MG TAB PO PRN (21:45)
[2016-09-13 22:21] LABS: BUN/CREATININE RATIO 18.8 (10-20); CALCIUM 9.1 mg/dl (8.5-10.1); CREATININE 2.4 mg/dl (0.60-1.40); MAGNESIUM 2.4 mg/dl (1.8-2.4); PHOSPHORUS 5.2 mg/dl (2.5-4.9); POTASSIUM 4.5 mmol/L (3.5-5.1)
[2016-09-14 02:37] VITALS: BP 160/84; PULSE 80; TEMP 36.4; O2SAT 98
[2016-09-14] MEDS: HEPARIN SOD 5000 UNIT/0.5 ML CARP SQ SCH ×3 (06:01→21:10)
[2016-09-14] MEDS: LORAZEPAM 0.5 MG TAB PO PRN ×2 (06:01→19:13)
[2016-09-14] MEDS: OXYCODONE/ACETAMINOPHEN 5-325 TAB PO PRN ×2 (06:02→19:13)
--- NOTE | 2016-09-14 06:54 | DIAGNOSTIC IMAGING REPORT ---
CHEST ONE VIEW PORTABLE CLINICAL HISTORY: shortness of breath COMPARISON STUDY: 09/13/2016 FINDINGS: The cardiac silhouette remains enlarged. There is blunting of the left lateral costophrenic angle suggesting small effusion. There are minor left basilar atelectatic changes. There is no overt failure.[ IMPRESSION: Cardiomegaly and small left pleural effusion. Left basal airspace opacities likely atelectatic Electronically signed by: Bryan Izquierdo M.D. 09/14/2016 6:52 AM Dictated Date/Time: 09/14/2016 6:52 AM
[2016-09-14] MEDS: INSULIN ASPART 100 UNITS/ML 3 ML PEN SC SCH ×4 (07:00→21:00)
[2016-09-14 07:23] VITALS: BP 91/72; PULSE 63; TEMP 36.5; O2SAT 98
[2016-09-14 07:37] LABS: BASO % 0.5 %; BASO ABS # 0.04 K/uL (0-0.2); COMPLETE YES; EOS % 0.8 %; HEMATOCRIT 49.4 % (42-52); IG% 0.1 %; LYMPH % 25.4 %; LYMPH ABS # 2.14 K/uL (1.2-3.4); MEAN CELL VOLUME 89.8 fL (80-100); MEAN CORPUSCULAR HEMOGLOBIN 29.5 pg (25-34); MEAN CORPUSCULAR HGB CONC 32.8 g/dl (32-36); MEAN PLATELET VOLUME 11.4 fL (7.4-10.4); NEUT % 66.2 %; PLATELET COUNT 149 K/uL (130-400); WHITE BLOOD COUNT 8.43 K/uL (4.8-10.8)
[2016-09-14] MEDS: ASPIRIN 81 MG ECTAB PO SCH (08:11)
[2016-09-14] MEDS: AMIODARONE 200 MG TAB PO SCH ×2 (08:11→19:14)
[2016-09-14] MEDS: CARVEDILOL 3.125 MG TAB PO SCH (08:11)
[2016-09-14] MEDS: INSULIN GLARGINE SOLOSTAR 100 UNITS/ML 3 ML PEN SC SCH ×2 (08:17→21:09)
[2016-09-14 08:39] LABS: BUN/CREATININE RATIO 21.6 (10-20); CALCIUM 8.6 mg/dl (8.5-10.1); CREATININE 2.2 mg/dl (0.60-1.40); MAGNESIUM 2.4 mg/dl (1.8-2.4); POTASSIUM 4.1 mmol/L (3.5-5.1)
[2016-09-14] MEDS ORDERED: CARVEDILOL 3.125 MG TAB PO SCH (09:00)
[2016-09-14] MEDS ORDERED: FUROSEMIDE 40 MG TAB PO SCH (09:00)
[2016-09-14 11:02] VITALS: BP 120/87; PULSE 63; TEMP 36.5; O2SAT 100
--- NOTE | 2016-09-14 12:48 | Pharmacy Progress Note ---
Glycemic Control: Progress Nt Date of Service Sep 14, 2016. Scope Glycemic Pharmacist consulted by Dr Kruger on 09/11/16 for glycemic control and to write orders per [facility] inpatient glycemic control protocol. Objective Accuchecks BSG (last 24hrs): Test 09/13/16 16:24 09/13/16 20:56 09/13/16 21:38 09/14/16 06:51 Bedside Glucose 126 mg/dl (70-99) 144 mg/dl (70-99) 105 mg/dl (70-99) Random Glucose 140 mg/dl (70-99) Test 09/14/16 07:12 09/14/16 11:17 Random Glucose 113 mg/dl (70-99) Bedside Glucose 125 mg/dl (70-99) Laboratory Data (last 24hrs) Test 09/13/16 21:38 09/14/16 07:12 09/14/16 07:15 Anion Gap 10.0 mmol/L 10.0 mmol/L BUN/Creatinine Ratio 18.8 21.6 Blood Urea Nitrogen 45 mg/dl 48 mg/dl Creatinine 2.40 mg/dl 2.20 mg/dl Potassium Level 4.5 mmol/L 4.1 mmol/L Sodium Level 138 mmol/L 140 mmol/L White Blood Count 8.43 K/uL Red Blood Count 5.50 M/uL Hemoglobin 16.2 g/dL Hematocrit 49.4 % Mean Corpuscular Volume 89.8 fL Mean Corpuscular Hemoglobin 29.5 pg Mean Corpuscular Hemoglobin Concent 32.8 g/dl Platelet Count 149 K/uL Mean Platelet Volume 11.4 fL Neutrophils (%) (Auto) 66.2 % Lymphocytes (%) (Auto) 25.4 % Monocytes (%) (Auto) 7.0 % Eosinophils (%) (Auto) 0.8 % Basophils (%) (Auto) 0.5 % Neutrophils # (Auto) 5.58 K/uL Lymphocytes # (Auto) 2.14 K/uL Monocytes # (Auto) 0.59 K/uL Eosinophils # (Auto) 0.07 K/uL Basophils # (Auto) 0.04 K/uL HbA1c: Test 09/12/16 03:18 Hemoglobin A1c 12.6 %(4.5-5.6) H Recent Pertinent Medications Outpatient Anti-diabetic Regimen: * n/a * A1c = 12.6 % 09/12/16 The patient is currently receiving: * Basal insulin: Lantus 10 units SQ BID * Correctional Insulin: NovoLog Correction per scale AC/HS Goal Range: Low 140 mg/dL - High 180 mg/dL Correction Factor: 25 mg/dL/unit * Prandial insulin: Per carb ratio of 1 unit per 7 grams CHO consumed Risk Factors for Insulin Resistance: * Infection: ceftriaxone - day #4 * Diet: Low Na / 1500mL diet / T2DM Assessment & Plan ASSESSMENT: * ADA & AACE recommend a goal blood sugar range 140-180 mg/dl for the majority of critically ill & non-critically ill patients. However, more stringent targets may be selected in individual cases. 09/12/16 * 76 y/o who is not on any diabetic medications prior to admission. Presenting with SVT and fluid overload as well as hyperglycemia * NovoLog started on admission * BSGs continue to be elevated this AM (BSG 302mg/dL on AM PRP) * begin basal insulin at this time * A1c resulted and shows poor blood glucose control as an outpatient - non- diagnosed diabetic? * may require treatment at discharge (insulin vs. orals vs. other) 09/13/16 * BSGs improved after the initiation of basal/bolus regimen * Continue weight based dosing at this time * No h/o DM on admission and poor followup with outpatient providers * may need diabetic medications at discharge * CDE met with - concern that patient may be unreceptive 09/14/16 * BSGs at or below goal over the past 24 hours with 33 units of insulin administered. * Fasting BSG today below goal range * The following may be contributing to increased insulin sensitivity/decreased insulin needs * Serum creatinine continues to climb * Acuity of illness improved (downgraded to tele status) * The patient may be more willing to begin diabetic treatment at discharge, though he would prefer to avoid insulin * with CV co-morbidities, would avoid thiazolidinediones. * May try GLP1 inhibitor as they have been shown to have benefit with CHF PLAN FOR INPATIENT GLYCEMIC CONTROL: * Decrease Lantus doses as fasting BSG below goal * 0 units if BSG less than 120mg/dL * 10 units if BSG 120mg/dL or higher * Continue NovoLog AC and HS * Correction factor: 30 mg/dL/unit * Carb ratio: 1 unit per 10 g of CHO consumed * Goal 140-180mg/dL per ADA recommendations * A1c -current * add to discharge instructions RECOMMENDATIONS FOR DISCHARGE: * The patient may be more willing to begin diabetic treatment at discharge, though he would prefer to avoid insulin * per CDE note, patient and knowledgeable about dietary sugars and carbohydrates * encourage lifestyle/dietary changes to help improve glycemic control * CV/renal co-morbidities may drive oral therapy choice * would avoid thiazolidinediones * may need to avoid metformin if continues to have poor renal function * May try GLP1 inhibitor (Victoza, Liraglutide) as they have shown favorable CV effects * Please note that the plan above was derived based on current level of insulin resistance and hospital stress. These recommendations are appropriate for inpatient admission only. Plan of care upon discharge will need to be reassessed to avoid potential outpatient hypo/hyperglycemia. Thank you.
[2016-09-14] MEDS ORDERED: NURSING VERBAL MED ORDER ONE (13:15)
[2016-09-14] MEDS: MINERAL OIL 473 ML BOTTLE PO SCH (13:30)
[2016-09-14] MEDS: COLLAGENASE OINT 30 GM TUBE EXT SCH (13:42)
--- NOTE | 2016-09-14 15:10 | CONSULTATION REPORT ---
DATE OF CONSULTATION: 09/14/2016 DATE OF CONSULTATION: 09/14/2016. CHIEF COMPLAINT: Ulceration with edema of the left lower extremity. HISTORY OF PRESENT ILLNESS: The patient was recently admitted at [facility] 2 days prior for the management of recurrent congestive heart failure following episodes of shortness of breath. The patient states he has noticed increased swelling in his legs over the past 7-10 days with blister formation beginning to occur approximately 10 days ago, most notably in the left lower extremity. The patient states she is having exquisite pain in this area with any tactile stimulation over the area of ulceration. The patient denies any current significant shortness of breath, chest pain, abdominal discomfort, nausea or vomiting. The patient denies any fever, chills or night sweats. The patient denies any other systemic complaints at this time. PAST MEDICAL HISTORY: Positive for cardiomyopathy with severe congestive heart failure, dyslipidemia, hypertension, history of ventricular tachycardia, mitral regurgitation, peripheral vascular disease, chronic kidney disease stage III. PAST SURGICAL HISTORY: Positive for a right hip ORIF. SOCIAL HISTORY: The patient lives at home, , current nonsmoker. MEDICATIONS: Are noted in the nursing notes and were reviewed. ALLERGIES: CLOPIDOGREL, SPIRONOLACTONE, HYDRALAZINE, PROPYLHEXEDRINE, DILTIAZEM, LISINOPRIL, METOLAZONE. REVIEW OF SYSTEMS: Ten systems were reviewed in their entirety and positive findings were noted in the chief complaint and history of present illness. PHYSICAL EXAMINATION: GENERAL: The patient is currently lying in hospital bed in no acute distress, alert and cooperative throughout the examination. VITAL SIGNS: Were reviewed and found to be unremarkable. The patient is afebrile. HEAD, EYES, EARS, NOSE, AND THROAT: Pupils equal and reactive to light. Sclerae clear. CHEST: Heart and lungs clear to auscultation. EXTREMITIES: Reveal the presence of an ulceration to the left lower extremity with eschar formation measuring 7 x 4.7 x 0.1 cm. There is some surrounding periwound erythema noted. There is no active drainage or odor present from this site. There is significant tenderness to palpation in the wound and periwound area. Distal neurovascular bundles intact. NEUROLOGIC EXAMINATION: The patient is alert and oriented x3. It also should be noted the extremities that the patient has a +1 pitting edema present. ASSESSMENT: Venous stasis ulceration with secondary peripheral edema and associated cellulitis. PLAN: At this time, the patient would not tolerate a mechanical debridement. The site was first managed with topical Xylocaine 4%. The eschar were scored with a #11 blade. No bleeding occurred. The site will be managed with Santyl and gauze changed on a daily basis. The patient will be reevaluated in 1 week either as inpatient or an outpatient basis to determine whether further debridement can be done. The patient will continue his current antibiotic course as prescribed. This represented a nonexcisional debridement of less than 20 square cm.
[2016-09-14] MEDS ORDERED: VANCOMYCIN TROUGH SCH (15:30)
--- NOTE | 2016-09-14 15:33 | Progress Note ---
Subjective Date of Service: Sep 14, 2016. Subjective Pt evaluation today including: conversation w/ patient, conversation w/ family , physical exam, chart review, lab review, conversation w/ client consultant, review of inpatient medication list d/w overnight coverage as well. awake in the middle of the night feelign sob - after w/u felt likely due to anxiety, and then after ongoing anxiety - was given ativna, fell asleep. little to no HPI obtainable from pt this AM - gives hx - appears to be breathing well, but is confused - was clumsy and confused with breakfast - trying to put butter on bread without opening the butter container, talking in a dream like state about a dream that he kind of knows isn't real but kind of doesn't. then sleeping again. does believe pain under better control - and didn't see any mental status changes after getting percocet twice yesterday Problem List Medical Problems: (1) Dyspnea Status: Acute Review of Systems ros otherwise negative as best can be ascertained - due to mentation can't really obtain well, however Objective Vital Signs Date Time Temp Pulse Resp B/P Pulse Ox O2 Delivery O2 Flow Rate FiO2 09/14/16 12:00 Nasal Cannula 09/14/16 11:02 36.5 63 20 120/87 100 Nasal Cannula 2.0 09/14/16 10:02 Nasal Cannula 09/14/16 08:00 Nasal Cannula 09/14/16 07:37 Room Air 09/14/16 07:23 36.5 63 22 91/72 98 Room Air 09/14/16 04:00 Nasal Cannula 2.0 09/14/16 02:37 36.4 80 25 160/84 98 Nasal Cannula 2.5 09/13/16 23:59 Nasal Cannula 2.0 09/13/16 23:59 36.4 79 20 152/94 99 Nasal Cannula 2.0 09/13/16 21:18 36.5 81 24 131/95 100 Nasal Cannula 2.0 09/13/16 20:00 Room Air 2.0 Nasal Cannula 09/13/16 19:30 36.5 62 16 101/74 96 Room Air 09/13/16 16:00 Room Air Physical Exam General Appearance: no apparent distress Eyes: EOMI Neck: trachea midline Respiratory/Chest: no respiratory distress, no accessory muscle use, + decreased breath sounds (but overall clear no r/r/w good effort) Cardiovascular: regular rate, rhythm Extremities: + pertinent finding (ongoing LE edema, resolving erythema LLE ulcer dressed) Neurologic/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: 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 nml as tested, alert, normal mood/affect Laboratory Results Last 24 Hours Test 09/13/16 16:20 09/13/16 16:24 09/13/16 20:56 09/13/16 21:38 Urine Color ORANGE Urine Appearance CLOUDY Urine pH 5.5 Urine Specific [place] 1.015 Urine Protein 2+ Urine Glucose (UA) NEG Urine Ketones NEG Urine Occult Blood 3+ Urine Nitrite NEG Urine Bilirubin NEG Urine Urobilinogen NEG Urine Leukocyte Esterase SMALL Urine RBC >30 /hpf Urine WBC 5-10 /hpf Urine Epithelial Cells 0-5 /lpf Urine Bacteria 1+ Bedside Glucose 126 mg/dl 144 mg/dl Sodium Level 138 mmol/L Potassium Level 4.5 mmol/L Chloride Level 101 mmol/L Carbon Dioxide Level 27 mmol/L Anion Gap 10.0 mmol/L Blood Urea Nitrogen 45 mg/dl Creatinine 2.40 mg/dl Est Creatinine Clear Calc Drug Dose 28.2 ml/min Estimated GFR () 29.7 Estimated GFR (Non- 25.6 BUN/Creatinine Ratio 18.8 Random Glucose 140 mg/dl Calcium Level 9.1 mg/dl Phosphorus Level 5.2 mg/dl Magnesium Level 2.4 mg/dl Test 09/14/16 06:51 09/14/16 07:12 09/14/16 07:15 09/14/16 11:17 Bedside Glucose 105 mg/dl 125 mg/dl Sodium Level 140 mmol/L Potassium Level 4.1 mmol/L Chloride Level 105 mmol/L Carbon Dioxide Level 25 mmol/L Anion Gap 10.0 mmol/L Blood Urea Nitrogen 48 mg/dl Creatinine 2.20 mg/dl Est Creatinine Clear Calc Drug Dose 30.7 ml/min Estimated GFR () 33.0 Estimated GFR (Non- 28.5 BUN/Creatinine Ratio 21.6 Random Glucose 113 mg/dl Calcium Level 8.6 mg/dl Magnesium Level 2.4 mg/dl White Blood Count 8.43 K/uL Red Blood Count 5.50 M/uL Hemoglobin 16.2 g/dL Hematocrit 49.4 % Mean Corpuscular Volume 89.8 fL Mean Corpuscular Hemoglobin 29.5 pg Mean Corpuscular Hemoglobin Concent 32.8 g/dl Platelet Count 149 K/uL Mean Platelet Volume 11.4 fL Neutrophils (%) (Auto) 66.2 % Lymphocytes (%) (Auto) 25.4 % Monocytes (%) (Auto) 7.0 % Eosinophils (%) (Auto) 0.8 % Basophils (%) (Auto) 0.5 % Neutrophils # (Auto) 5.58 K/uL Lymphocytes # (Auto) 2.14 K/uL Monocytes # (Auto) 0.59 K/uL Eosinophils # (Auto) 0.07 K/uL Basophils # (Auto) 0.04 K/uL RDW Standard Deviation 46.8 fL RDW Coefficient of Variation 14.5 % Immature Granulocyte % (Auto) 0.1 % Immature Granulocyte # (Auto) 0.01 K/uL Assessment and Plan Acute on chronic severe systolic CHF, sustained ventricular tachycardia, severe PAD, hypertension, dyslipidemia and presumably ischemic cardiomyopathy although has never had a cardiac catheterization. -doing surprisingly well. appearing euvolemic -hold lasix for now, continue to follow BMP, follow breathing/O2 acute metabolic encephalopathy -probably mixed in origin from anxiety --> lack of sleep --> ativan as main culprits. doubt percocet as inciting since he had several doses without problems, but will have to follow it as a possible problem. d/w extensively. likely will lift w sleep and time / no further ativan - but d/w that it is quite possible that since he's still in hospital environment it may not entirely lift -no focal neuro deficits Left leg arterial ulceration, severe PAD, cellulitis-lactate is normal, afebrile , no leukocytosis or signs of sepsis. The leg is extremely painful. -venous dopplers negative -Consider arterial Dopplers however he is not a great candidate for any sort of vascular procedure at this time -continue Rocephin, appears to be improving even with vanco stopped (although just stopped yesterday) -ongoing wound care -vascular eval - either as outpt if improves as expected with local care or inpatient if would fails to show proper healing -med management for PAD same as for CAD Hyperglycemia-/uncontrolled DM2, most likely with diabetes mellitus type 2 -A1c >12 -education attempted, requests at this time we don't educate further till he's feeling better -Accu-Cheks every before meals at bedtime and sliding scale insulin; inpatient sugars at goal Abnormal TSH-7.7, free T4 is normal -Repeat as an outpatient, no treatment for now CKD stage III-creatinine is around his baseline at 1.5 -Renally dose medications and avoid nephrotoxins -Follow BMP - increase likely from diuresis but required due to CHF DVT prophylaxis-heparin subcutaneous leg edema -given some response to diuretic but not totally - as per his hx - suspect venous insufficiency in addition to CHF - once improved enough, would want to try compression if possible w arterial insufficiency leg pain -from ulcer, cellulitis - pain does appear improved - continue percocet for now junctional rhythm again -reduced amiodarone -drop coreg to daily -asymptomatic hypokalemia -repleted -mag ok Disposition-full code but no mechanical ventilation or intubation stable on telemetry
[2016-09-14 15:34] VITALS: BMI 31.5
[2016-09-14 15:46] VITALS: BP 130/96; PULSE 73; TEMP 37; O2SAT 100
[2016-09-14] MEDS: CEFTRIAXONE SOD INJ 1 GM in DEXTROSE 5% ADD-VANTAGE 50ML 50 ML IV SCH (19:12)
[2016-09-14] MEDS: ATORVASTATIN 40 MG TAB PO SCH (19:14)
[2016-09-14 19:36] VITALS: BP 123/76; PULSE 54; TEMP 36.4; O2SAT 99
[2016-09-14 23:59] VITALS: BP 144/86; PULSE 73; TEMP 36.4; O2SAT 95
[2016-09-15] VITALS (7 sets, daily range): BP systolic 112–152; BP diastolic 72–103; PULSE 51–83; TEMP 36.6–37.4; O2SAT 95–99; Ht 167.6 cm; Wt 90.9 kg
[2016-09-15 06:08] LABS: BUN/CREATININE RATIO 23.1 (10-20); CALCIUM 8.9 mg/dl (8.5-10.1); CREATININE 2.4 mg/dl (0.60-1.40); MAGNESIUM 2.4 mg/dl (1.8-2.4); POTASSIUM 3.8 mmol/L (3.5-5.1)
[2016-09-15] MEDS: HEPARIN SOD 5000 UNIT/0.5 ML CARP SQ SCH ×3 (06:18→21:19)
[2016-09-15] MEDS: INSULIN ASPART 100 UNITS/ML 3 ML PEN SC SCH ×4 (07:00→21:18)
[2016-09-15 07:25] LABS: BASO % 0.6 %; BASO ABS # 0.05 K/uL (0-0.2); COMPLETE YES; EOS % 1.9 %; IG% 0.2 %; LYMPH ABS # 1.76 K/uL (1.2-3.4); MEAN CORPUSCULAR HEMOGLOBIN 30.8 pg (25-34); MEAN CORPUSCULAR HGB CONC 33.5 g/dl (32-36); MEAN PLATELET VOLUME 11.8 fL (7.4-10.4); MONO % 7.6 %; NEUT % 68.7 %; PLATELET COUNT 159 K/uL (130-400); RED BLOOD COUNT 5.22 M/uL (4.7-6.1); WHITE BLOOD COUNT 8.38 K/uL (4.8-10.8)
[2016-09-15] MEDS: CARVEDILOL 3.125 MG TAB PO SCH (07:30)
[2016-09-15] MEDS: AMIODARONE 200 MG TAB PO SCH ×2 (07:30→19:50)
[2016-09-15] MEDS: ASPIRIN 81 MG ECTAB PO SCH (07:30)
[2016-09-15] MEDS: INSULIN GLARGINE SOLOSTAR 100 UNITS/ML 3 ML PEN SC SCH ×2 (07:31→21:19)
[2016-09-15] MEDS: MINERAL OIL 473 ML BOTTLE PO SCH (07:31)
[2016-09-15] MEDS: COLLAGENASE OINT 30 GM TUBE EXT SCH (09:07)
--- NOTE | 2016-09-15 10:54 | Pharmacy Progress Note ---
Glycemic Control: Progress Nt Date of Service Sep 15, 2016. Scope Glycemic Pharmacist consulted by on 09/11/16 for glycemic control and to write orders per [facility] inpatient glycemic control protocol. Objective Accuchecks BSG (last 24hrs): Test 09/14/16 11:17 09/14/16 16:47 09/14/16 20:25 09/15/16 05:29 Bedside Glucose 125 mg/dl (70-99) 100 mg/dl (70-99) 122 mg/dl (70-99) Random Glucose 73 mg/dl (70-99) Test 09/15/16 07:04 09/15/16 07:28 Bedside Glucose 64 mg/dl (70-99) 83 mg/dl (70-99) Laboratory Data (last 24hrs) Test 09/15/16 05:29 Anion Gap 9.0 mmol/L BUN/Creatinine Ratio 23.1 Blood Urea Nitrogen 55 mg/dl Creatinine 2.40 mg/dl Potassium Level 3.8 mmol/L Sodium Level 141 mmol/L White Blood Count 8.38 K/uL Red Blood Count 5.22 M/uL Hemoglobin 16.1 g/dL Hematocrit 48.0 % Mean Corpuscular Volume 92.0 fL Mean Corpuscular Hemoglobin 30.8 pg Mean Corpuscular Hemoglobin Concent 33.5 g/dl Platelet Count 159 K/uL Mean Platelet Volume 11.8 fL Neutrophils (%) (Auto) 68.7 % Lymphocytes (%) (Auto) 21.0 % Monocytes (%) (Auto) 7.6 % Eosinophils (%) (Auto) 1.9 % Basophils (%) (Auto) 0.6 % Neutrophils # (Auto) 5.75 K/uL Lymphocytes # (Auto) 1.76 K/uL Monocytes # (Auto) 0.64 K/uL Eosinophils # (Auto) 0.16 K/uL Basophils # (Auto) 0.05 K/uL HbA1c: Test 09/12/16 03:18 Hemoglobin A1c 12.6 % (4.5-5.6) H Recent Pertinent Medications Outpatient Anti-diabetic Regimen: * None * A1c = 12.6 % 09/12/16 Risk Factors for Insulin Resistance: * Infection: Cellulitis, On Rocephin IV * Diet: Fani/DM2 Assessment & Plan ASSESSMENT: * ADA & AACE recommend a goal blood sugar range 140-180 mg/dl for the majority of critically ill & non-critically ill patients. However, more stringent targets may be selected in individual cases. 09/12/16 * 76 y/o who is not on any diabetic medications prior to admission. Presenting with SVT and fluid overload as well as hyperglycemia * NovoLog started on admission * BSGs continue to be elevated this AM (BSG 302mg/dL on AM PRP) * begin basal insulin at this time * A1c resulted and shows poor blood glucose control as an outpatient - non- diagnosed diabetic? * may require treatment at discharge (insulin vs. orals vs. other) 09/13/16 * BSGs improved after the initiation of basal/bolus regimen * Continue weight based dosing at this time * No h/o DM on admission and poor followup with outpatient providers * may need diabetic medications at discharge * CDE met with - concern that patient may be unreceptive 09/14/16 * BSGs at or below goal over the past 24 hours with 33 units of insulin administered. * Fasting BSG today below goal range * The following may be contributing to increased insulin sensitivity/decreased insulin needs * Serum creatinine continues to climb * Acuity of illness improved (downgraded to tele status) * The patient may be more willing to begin diabetic treatment at discharge, though he would prefer to avoid insulin * with CV co-morbidities, would avoid thiazolidinediones. * May try GLP1 inhibitor as they have been shown to have benefit with CHF 09/15/16 * FBG this morning was again below goal range. Hypoglycemia episode noted this morning. * SCr continues to rise leading to increased insulin sensitivity. * Will preemptively loosen Novolog CF/CR to avoid hypo. * Additionally, his po intake has been minimal the past 2 days thus making insulin therapy heavy on basal. * Will decrease Lantus by 20% to avoid hypo particularly in the AM. PLAN FOR INPATIENT GLYCEMIC CONTROL: * Decrease Lantus qHS per scale * For BSG below 120mg/dl: Give 0 units * For BSG above 120 mg/dl: Give 8 units * Novolog ACHS * Loosen correction factor to 35 mg/dl/unit * Loosen carb ratio to 1 unit per 15 grams CHO consumed * Set goal range to Low 140 mg/dL - High 180 mg/dL RECOMMENDATIONS FOR DISCHARGE: * The patient may be more willing to begin diabetic treatment at discharge, though he would prefer to avoid insulin * per CDE note, patient and knowledgeable about dietary sugars and carbohydrates * encourage lifestyle/dietary changes to help improve glycemic control * CV/renal co-morbidities may drive oral therapy choice * would avoid thiazolidinediones * may need to avoid metformin if continues to have poor renal function * May try GLP1 inhibitor (Victoza, Liraglutide) as they have shown favorable CV effects * Please note that the plan above was derived based on current level of insulin resistance and hospital stress. These recommendations are appropriate for inpatient admission only. Plan of care upon discharge will need to be reassessed to avoid potential outpatient hypo/hyperglycemia. Thank you.
--- NOTE | 2016-09-15 12:02 | CARDIOLOGY PROGRESS NOTE ---
DATE: 09/15/2016 SUBJECTIVE: The patient was seen by me this morning in his telemetry unit room. He states he has less dyspnea than a few days ago. He states he still has episodes of dyspnea lying in bed. No current dyspnea. No chest pain. He states he has occasional episodes of lightheadedness while lying in bed. These are several seconds in duration. No palpitations. He had nausea and vomiting yesterday. None today. No fevers or chills. Occasional cough. He states it is productive, but cannot describe the sputum. No bleeding complaints. He continues to complain of pain in his left leg. However, it has improved compared to a few days ago. He feels that the edema in his legs has decreased over the past few days. I examined the patient yesterday. He was sleeping. He was not arousable at that time. He was noted by me to have multiple episodes of apnea. These were time by me. Some of them last up to 45 seconds. I spoke with the nursing staff today. They also noted that he had apneic episode yesterday lasting up to 60 seconds. The patient's states that she has noticed her to have apneic episodes. These are more pronounced when he sleeps on his back. At home, he usually sleeps on his side. The patient denies any history of sleep apnea. CURRENT MEDICATIONS: Lantus insulin by protocol, carvedilol 3.125 mg daily, mineral oil daily, collagenase ointment 1 application daily, amiodarone 2 mg b.i.d., Percocet 5/325 one tab q. 4 hours as needed for pain, ceftriaxone 1 gram IV daily, aspirin 81 mg daily, subQ heparin 5000 units q. 8 hours, atorvastatin 80 mg at bedtime, NovoLog sliding scale insulin, and several p.r.n. medications. ALLERGIES AND ADVERSE DRUG REACTIONS: CLOPIDOGREL, DILTIAZEM, HYDRALAZINE, ISOSORBIDE, LISINOPRIL, METOLAZONE, SPIRONOLACTONE, AND PROPYLHEXEDRINE. THE ADVERSE REACTION TO DILTIAZEM WAS A RASH. WITH METOLAZONE, HYPOKALEMIA. WITH LISINOPRIL, HYPERKALEMIA. WITH HYDRALAZINE, RASH. WITH SPIRONOLACTONE, RASH. WITH CLOPIDOGREL, RASH. WITH ISOSORBIDE, RASH. Monitor history over the 24 hours reveals sinus rhythm, premature ventricular beats, and occasional ventricular couplet. No ventricular tachycardia. Intake and output yesterday reported to be 540/475. Today reported to be 250/375. PHYSICAL EXAMINATION: VITAL SIGNS: At 7:00 a.m. this morning with oral temperature 37.4, pulse 83, blood pressure 152/103, and pulse oximetry on nasal cannula oxygen 99%. This is 2 L per minute. GENERAL: Shows him to be in no distress. NECK: Jugular venous pressure approximately 9 cm. LUNGS: Decreased breath sounds at bases. No rales or wheezes. Normal respiratory effort. HEART: Underlying regular rhythm. Occasional premature beat. No murmur, S3, or rub heard. ABDOMEN: Soft. Nontender. No palpable masses or organomegaly. No bruits. EXTREMITIES: Trace pretibial edema bilaterally. Erythema of left lower leg. Dressing overall left pretibial region. LABORATORY DATA: Today with WBC 8.38, hemoglobin 16.1, hematocrit 48.0, and platelet count 159. Metabolic profile -- sodium 141, potassium 3.8, chloride 103, carbon dioxide 29, BUN 35, creatinine 2.40, random glucose 73, and magnesium 2.4. ASSESSMENT: 1. Severe left ventricular systolic dysfunction. Severe right ventricular systolic dysfunction. The patient was admitted with acute on chronic systolic heart failure as well as episodes of sustained ventricular tachycardia. On exam today, he has no evidence of pulmonary vascular congestion. His oxygen saturation on 2 liters per nasal cannula oxygen is good. No evidence on exam of any excessive volume overload. He has a trace leg edema today. 2. Cellulitis of left leg secondary to venous ulceration. Venous ulcerations secondary to peripheral edema and heart failure. He is afebrile. White blood cell count is normal. He continues on antibiotic therapy. 3. Sustained ventricular tachycardia on admission. No further ventricular tachycardia since being started on amiodarone. 4. Episodes of junctional rhythm. None noted overnight or today. 5. Hypertension. Blood pressure elevated today. Yesterday, he had a blood pressure in the morning of 91/72. At that time, he was receiving carvedilol 3.125 mg b.i.d. 6. Chronic kidney disease. Acute on chronic kidney injury. Certainly his decreased cardiac output and decreased renal perfusion would be contributory. Intravascular volume depletion from diuresis would also be contributory. This would be upon his baseline insufficiency. 7. Sleep apnea. This was seen by me and the nursing staff yesterday when the patient was sleeping. His also states that she had seen him to be apneic while sleeping. RECOMMENDATIONS: 1. Agree with holding furosemide secondary to worsening renal function. 2. As he has had no further junctional rhythm since yesterday, would continue current dose of amiodarone. 3. If he remains with no further junctional rhythm, would consider going back to carvedilol 3.125 mg b.i.d. 4. It was discussed with the patient that he might benefit from CPAP therapy. He states that he would consider this. [facility]
[2016-09-15] MEDS: OXYCODONE/ACETAMINOPHEN 5-325 TAB PO PRN ×2 (13:52→19:50)
--- NOTE | 2016-09-15 19:18 | Progress Note ---
Subjective Date of Service: Sep 15, 2016. Subjective Pt evaluation today including: conversation w/ patient, conversation w/ family , physical exam, chart review, lab review, review of inpatient medication list still fairly delirious. feeling better but still fairly delirious. leg pain improving. no f/c/s. breathing improving. doing OK Problem List Medical Problems: (1) Dyspnea Status: Acute Review of Systems ros otherwise negative except for as above as best can be ascertained Objective Vital Signs Date Time Temp Pulse Resp B/P Pulse Ox O2 Delivery O2 Flow Rate FiO2 09/15/16 16:00 98 Nasal Cannula 3.0 09/15/16 15:37 36.6 51 18 112/72 98 Nasal Cannula 3.0 09/15/16 12:00 Nasal Cannula 09/15/16 11:19 36.8 69 18 134/89 97 2.5 09/15/16 08:00 Nasal Cannula 09/15/16 07:01 37.4 83 20 152/103 99 Nasal Cannula 2.0 09/15/16 04:17 36.6 69 22 142/92 95 Room Air 09/15/16 04:00 Nasal Cannula 3.0 09/14/16 23:59 Nasal Cannula 3.0 09/14/16 23:59 36.4 73 22 144/86 95 Nasal Cannula 3.0 09/14/16 20:00 Room Air 3.0 Nasal Cannula 09/14/16 19:36 36.4 54 24 123/76 99 Nasal Cannula 3.0 Physical Exam General Appearance: no apparent distress Eyes: EOMI ENT: hearing grossly normal Neck: trachea midline Respiratory/Chest: lungs clear, normal breath sounds (decreased bibasilar but no r/r/w good effort), no respiratory distress, no accessory muscle use Cardiovascular: regular rate, rhythm Extremities: + pertinent finding (LLE ongoing resolution of erythema no exudate wounds dressed) Neurologic/Psychiatric: studio engineer II-XII nml as tested Skin: normal color, warm/dry Laboratory Results Last 24 Hours Test 09/14/16 20:25 09/15/16 05:29 09/15/16 07:04 09/15/16 07:28 Bedside Glucose 122 mg/dl 64 mg/dl 83 mg/dl White Blood Count 8.38 K/uL Red Blood Count 5.22 M/uL Hemoglobin 16.1 g/dL Hematocrit 48.0 % Mean Corpuscular Volume 92.0 fL Mean Corpuscular Hemoglobin 30.8 pg Mean Corpuscular Hemoglobin Concent 33.5 g/dl Platelet Count 159 K/uL Mean Platelet Volume 11.8 fL Neutrophils (%) (Auto) 68.7 % Lymphocytes (%) (Auto) 21.0 % Monocytes (%) (Auto) 7.6 % Eosinophils (%) (Auto) 1.9 % Basophils (%) (Auto) 0.6 % Neutrophils # (Auto) 5.75 K/uL Lymphocytes # (Auto) 1.76 K/uL Monocytes # (Auto) 0.64 K/uL Eosinophils # (Auto) 0.16 K/uL Basophils # (Auto) 0.05 K/uL RDW Standard Deviation 49.6 fL RDW Coefficient of Variation 14.8 % Immature Granulocyte % (Auto) 0.2 % Immature Granulocyte # (Auto) 0.02 K/uL Sodium Level 141 mmol/L Potassium Level 3.8 mmol/L Chloride Level 103 mmol/L Carbon Dioxide Level 29 mmol/L Anion Gap 9.0 mmol/L Blood Urea Nitrogen 55 mg/dl Creatinine 2.40 mg/dl Est Creatinine Clear Calc Drug Dose 28.1 ml/min Estimated GFR () 29.7 Estimated GFR (Non- 25.6 BUN/Creatinine Ratio 23.1 Random Glucose 73 mg/dl Calcium Level 8.9 mg/dl Magnesium Level 2.4 mg/dl Test 09/15/16 11:23 09/15/16 16:24 Bedside Glucose 202 mg/dl 240 mg/dl Assessment and Plan Acute on chronic severe systolic CHF, sustained ventricular tachycardia, severe PAD, hypertension, dyslipidemia and presumably ischemic cardiomyopathy although has never had a cardiac catheterization. -doing surprisingly well. appearing euvolemic, stablized -continue to hold lasix for now, continue to follow BMP, follow breathing/O2 acute metabolic encephalopathy -probably mixed in origin from anxiety --> lack of sleep --> ativan as main culprits. doubt percocet as inciting since he had several doses without problems, but will have to follow it as a possible problem. d/w extensively yesterday and again today. -no focal neuro deficits -no other clear infectious, toxic, or metabolic culprits at this time Left leg arterial ulceration, severe PAD, cellulitis-lactate is normal, afebrile , no leukocytosis or signs of sepsis. The leg is extremely painful. -venous dopplers negative -Consider arterial Dopplers however he is not a great candidate for any sort of vascular procedure at this time -continue Rocephin, appears to be improving even with vanco stopped (although just stopped yesterday) -ongoing wound care -vascular eval - either as outpt if improves as expected with local care or inpatient if would fails to show proper healing -med management for PAD same as for CAD -appears improving Hyperglycemia-/uncontrolled DM2, most likely with diabetes mellitus type 2 -A1c >12 -sugars have been reasonable on surprisingly little insulin -- d/w in the terminal clerk may simply need significant lifestyle change in regards to simple carbs Abnormal TSH-7.7, free T4 is normal -Repeat as an outpatient, no treatment for now CKD stage III-creatinine is around his baseline at 1.5 -Renally dose medications and avoid nephrotoxins -Follow BMP - increase likely from diuresis but required due to CHF --- dw today she understands DVT prophylaxis-heparin subcutaneous leg edema -given some response to diuretic but not totally - as per his hx - suspect venous insufficiency in addition to CHF - once improved enough, would want to try compression if possible w arterial insufficiency leg pain -from ulcer, cellulitis - pain does appear improved - continue percocet for now (follow w encephalopathy as above, may need to hold for a day and follow) junctional rhythm - appears to have not come back -continue current doses of amiodarone and coreg, follow hypokalemia -repleted -mag ok Disposition-full code but no mechanical ventilation or intubation stable on telemetry
[2016-09-15] MEDS: ATORVASTATIN 40 MG TAB PO SCH (19:50)
[2016-09-15] MEDS: CEFTRIAXONE SOD INJ 1 GM in DEXTROSE 5% ADD-VANTAGE 50ML 50 ML IV SCH (19:56)
[2016-09-16] VITALS (7 sets, daily range): BP systolic 98–139; BP diastolic 62–92; PULSE 51–88; TEMP 36.2–36.9; O2SAT 93–99
[2016-09-16] MEDS: HEPARIN SOD 5000 UNIT/0.5 ML CARP SQ SCH ×3 (05:21→21:33)
[2016-09-16] MEDS: INSULIN ASPART 100 UNITS/ML 3 ML PEN SC SCH ×3 (07:00→21:32)
[2016-09-16 07:42] LABS: BASO % 0.9 %; BASO ABS # 0.06 K/uL (0-0.2); COMPLETE YES; EOS % 3.6 %; IG% 0.3 %; LYMPH % 20.5 %; LYMPH ABS # 1.38 K/uL (1.2-3.4); MEAN CELL VOLUME 91.8 fL (80-100); MEAN CORPUSCULAR HEMOGLOBIN 30.5 pg (25-34); MEAN CORPUSCULAR HGB CONC 33.3 g/dl (32-36); MEAN PLATELET VOLUME 10.9 fL (7.4-10.4); NEUT % 66.7 %; PLATELET COUNT 135 K/uL (130-400); RED BLOOD COUNT 5.34 M/uL (4.7-6.1); WHITE BLOOD COUNT 6.72 K/uL (4.8-10.8)
[2016-09-16] MEDS: MINERAL OIL 473 ML BOTTLE PO SCH (07:45)
[2016-09-16] MEDS: AMIODARONE 200 MG TAB PO SCH ×2 (07:46→21:20)
[2016-09-16] MEDS: CARVEDILOL 3.125 MG TAB PO SCH (07:46)
[2016-09-16] MEDS: COLLAGENASE OINT 30 GM TUBE EXT SCH (07:46)
[2016-09-16] MEDS: ASPIRIN 81 MG ECTAB PO SCH (07:47)
[2016-09-16] MEDS: OXYCODONE/ACETAMINOPHEN 5-325 TAB PO PRN (07:52)
[2016-09-16 08:07] LABS: BUN/CREATININE RATIO 28.8 (10-20); CALCIUM 8.6 mg/dl (8.5-10.1); CREATININE 1.9 mg/dl (0.60-1.40); MAGNESIUM 2.3 mg/dl (1.8-2.4); POTASSIUM 3.9 mmol/L (3.5-5.1)
--- NOTE | 2016-09-16 18:02 | Progress Note ---
Subjective Date of Service: Sep 16, 2016. Subjective Pt evaluation today including: conversation w/ patient, conversation w/ family , physical exam, chart review, lab review, review of inpatient medication list still fairly confused doesn't complain of breathing problems. leg still seems to hurt but is better notes that he shouldhave code status changed to level 5- that he only agreed to anything otherwise because of acute situation with arrhythmias when ER but notes that for a long time he's been a DNR. also notes she'd like to see if he can be palliative - when asked to describe more she notes more towards a palliative plan of care - that the goal would be comfort/happy/home over "best possible care" (ie we discussed examples like an infected leg ulcer that might warranted IV abx and wound consult vs less optimal treatment at home w PO abx and home nursing, or CHF exacerbation that might need IV diuretics/etc managed at home w PO diuretics, O2 even if outcome worse -- she notes that's the kind of mindset they're thinking) Problem List Medical Problems: (1) Dyspnea Status: Acute Review of Systems ros otherwise negative except for as above Objective Vital Signs Date Time Temp Pulse Resp B/P Pulse Ox O2 Delivery O2 Flow Rate FiO2 09/16/16 16:12 36.5 51 20 98/62 98 Room Air 09/16/16 16:00 Nasal Cannula 09/16/16 12:00 Nasal Cannula 09/16/16 11:45 36.5 76 20 115/83 99 Nasal Cannula 3.0 09/16/16 09:06 36.2 58 20 98/73 98 Nasal Cannula 3.0 09/16/16 08:00 Nasal Cannula 09/16/16 04:00 Nasal Cannula 3.0 09/16/16 03:51 36.4 70 18 133/92 94 Room Air 09/16/16 00:00 36.4 71 20 115/80 96 Room Air 09/15/16 23:59 Nasal Cannula 3.0 09/15/16 20:00 97 Nasal Cannula 3.0 09/15/16 19:38 36.8 56 18 112/77 96 Room Air Physical Exam General Appearance: no apparent distress Eyes: EOMI ENT: hearing grossly normal Neck: trachea midline Respiratory/Chest: lungs clear, normal breath sounds, no respiratory distress, no accessory muscle use (99% on RA) Cardiovascular: regular rate, rhythm Extremities: normal range of motion, + pertinent finding (LLE dull redness mildly tender but far less than before no crepitis wound dressed no warmth) Neurologic/Psychiatric: legal summer intern II-XII nml as tested, alert, + pertinent finding ( oriented to person and place, doesn't really understand situation and still easily confused (talks semi-nonsensically about being here with a broken femur)) Skin: normal color, + pertinent finding (erythema leg as above is improving) Laboratory Results Last 24 Hours Test 09/15/16 20:42 09/16/16 06:41 09/16/16 07:25 09/16/16 11:44 Bedside Glucose 191 mg/dl 151 mg/dl 145 mg/dl White Blood Count 6.72 K/uL Red Blood Count 5.34 M/uL Hemoglobin 16.3 g/dL Hematocrit 49.0 % Mean Corpuscular Volume 91.8 fL Mean Corpuscular Hemoglobin 30.5 pg Mean Corpuscular Hemoglobin Concent 33.3 g/dl Platelet Count 135 K/uL Mean Platelet Volume 10.9 fL Neutrophils (%) (Auto) 66.7 % Lymphocytes (%) (Auto) 20.5 % Monocytes (%) (Auto) 8.0 % Eosinophils (%) (Auto) 3.6 % Basophils (%) (Auto) 0.9 % Neutrophils # (Auto) 4.48 K/uL Lymphocytes # (Auto) 1.38 K/uL Monocytes # (Auto) 0.54 K/uL Eosinophils # (Auto) 0.24 K/uL Basophils # (Auto) 0.06 K/uL RDW Standard Deviation 49.6 fL RDW Coefficient of Variation 14.8 % Immature Granulocyte % (Auto) 0.3 % Immature Granulocyte # (Auto) 0.02 K/uL Sodium Level 138 mmol/L Potassium Level 3.9 mmol/L Chloride Level 102 mmol/L Carbon Dioxide Level 28 mmol/L Anion Gap 8.0 mmol/L Blood Urea Nitrogen 55 mg/dl Creatinine 1.90 mg/dl Est Creatinine Clear Calc Drug Dose 36.1 ml/min Estimated GFR () 39.4 Estimated GFR (Non- 34.0 BUN/Creatinine Ratio 28.8 Random Glucose 167 mg/dl Calcium Level 8.6 mg/dl Magnesium Level 2.3 mg/dl Test 09/16/16 16:20 Bedside Glucose 160 mg/dl Assessment and Plan Acute on chronic severe systolic CHF, sustained ventricular tachycardia, severe PAD, hypertension, dyslipidemia and presumably ischemic cardiomyopathy although has never had a cardiac catheterization. -doing surprisingly well. appearing euvolemic, stablized -continue to hold lasix for now, can hod on labs tomorrow, follow acute metabolic encephalopathy -probably mixed in origin from anxiety --> lack of sleep --> ativan as main culprits. doubt percocet as inciting since he had several doses without problems, but will have to follow it as a possible problem. d/w extensively -no focal neuro deficits -no other clear infectious, toxic, or metabolic culprits at this time but will continue to reassess Left leg arterial ulceration, severe PAD, cellulitis-lactate is normal, afebrile , no leukocytosis or signs of sepsis. The leg is extremely painful. -venous dopplers negative -Consider arterial Dopplers however he is not a great candidate for any sort of vascular procedure at this time -continue Rocephin, appears to be improving even with vanco stopped (although just stopped yesterday) -ongoing wound care -vascular eval - either as outpt if improves as expected with local care or inpatient if would fails to show proper healing -med management for PAD same as for CAD -appears improving, albeit slowly - but thus far no need for urgent inpatient vascular eval Hyperglycemia-/uncontrolled DM2, most likely with diabetes mellitus type 2 -A1c >12 -sugars have been reasonable on surprisingly little insulin -- d/w in the retirement may simply need significant lifestyle change in regards to simple carbs, continue inpatient insulin management but has not required much Abnormal TSH-7.7, free T4 is normal -Repeat as an outpatient, no treatment for now CKD stage III-creatinine is around his baseline at 1.5 -Renally dose medications and avoid nephrotoxins -Cr improved some, hasn't needed further diuretics, continue to follow periodically but can hold on labs for tomorrow DVT prophylaxis-heparin subcutaneous leg edema -given some response to diuretic but not totally - as per his hx - suspect venous insufficiency in addition to CHF - once improved enough, would want to try compression if possible w arterial insufficiency leg pain -from ulcer, cellulitis - pain does appear improved - continue percocet for now (follow w encephalopathy as above, may need to hold for a day and follow) junctional rhythm - appears to have not come back -continue current doses of amiodarone and coreg, follow again overnight - if still none then can move to med surg tomorrow hypokalemia -repleted -mag ok goals of care -DNR -work towards palliative approach as described in HPI - ie goal of comfort and happy over aggressiveness of care; goal of home as much as possible
[2016-09-16] MEDS: CEFTRIAXONE SOD INJ 1 GM in DEXTROSE 5% ADD-VANTAGE 50ML 50 ML IV SCH (21:19)
[2016-09-16] MEDS: ATORVASTATIN 40 MG TAB PO SCH (21:19)
[2016-09-16] MEDS: INSULIN GLARGINE SOLOSTAR 100 UNITS/ML 3 ML PEN SC SCH (21:33)
--- NOTE | 2016-09-16 21:37 | PROGRESS NOTE ---
DATE: 09/16/2016 SUBJECTIVE: The patient was seen by me this morning in his telemetry unit room. He still complains of left lower leg pain. It has improved since admission. He complains of mild nausea. No complaint of fevers or chills. No chest pain. He complains of dyspnea lying in bed. He states that this is mild. No lightheadedness. No palpitations. No focal neurologic complaints. He continues to be somnolent. He fell asleep during my exam. He was again noted to have an apneic episode. CURRENT MEDICATIONS: Carvedilol 3.125 mg daily, mineral oil 10 mL daily, collagenase 1 application daily, amiodarone 200 mg p.o. b.i.d., Percocet 1 tab q. 4 hours as needed for pain, ceftriaxone 1 gram IV daily, aspirin 81 mg daily, subQ heparin 5000 units q. 8 hours, atorvastatin 80 mg at bedtime, and a few p.r.n. medications. ALLERGIES AND ADVERSE DRUG REACTIONS: CLOPIDOGREL, DILTIAZEM, HYDRALAZINE, ISOSORBIDE, LISINOPRIL, METOLAZONE, SPIRONOLACTONE, PROPYLHEXEDRINE. Monitor reviewed by me. Over the past 24 hours predominantly sinus rhythm and sinus bradycardia. Episodes of intermittent junctional rhythm. Occasional premature ventricular beats. No ventricular tachycardia. PHYSICAL EXAMINATION: VITAL SIGNS: Blood pressure this morning at 3:51 a.m. was 133/92. At 9:06 a.m. 98/73. Pulse was 58. Oral temperature is 36.2, pulse oximetry 98% on 3 liters per minute nasal cannula oxygen. GENERAL: Shows him to be lying in bed. No distress. He does fall asleep easily. This includes during my exam and questioning. NECK: Jugular venous pressure 8-9 cm. LUNGS: No rales or wheezes. Normal respiratory effort. He does have apneic episodes when he falls asleep. Decreased breath sounds at both bases. HEART: Regular rate and rhythm. No murmur, S3, or rub. ABDOMEN: Nontender. No palpable masses or organomegaly. No bruits. EXTREMITIES: Dressing over the left pretibial region. Erythema left lower leg. Trace pretibial edema. LABORATORY DATA: Today with WBC 6.72, hemoglobin 16.3, hematocrit 49.0, platelet count 135. Metabolic profile -- sodium 138, potassium 3.9, chloride 102, carbon dioxide 28, BUN 55, creatinine 1.90, random glucose 167. Magnesium 2.3. ASSESSMENT: 1. Severe biventricular systolic dysfunction on echocardiogram this admission. 2. Sustained ventricular tachycardia at time of admission. Subsequent control loading of intravenous amiodarone. No further significant ventricular ectopy. Certainly no ventricular tachycardia. 3. Occasional episodes of junctional rhythm competing with sinus rhythm. No significant bradycardias. No evidence of atrioventricular block. 4. Acute on chronic kidney disease. Creatinine today, improved from yesterday. He still has an elevated BUN. Decreased renal perfusion from decreased cardiac output, likely a significant contributing factor to his worsened renal function. 5. Sleep apnea. 6. Cellulitis, left lower leg. RECOMMENDATIONS: 1. Continue amiodarone 2 mg b.i.d. This is despite episodes of intermittent junctional bradycardia. With the junctional bradycardia he has no hemodynamic compromise. There is no evidence of atrioventricular block. 2. Monitor volume status closely. If he begins to become positive in his fluid balance on a daily basis would reinstitute diuretic therapy. However, he now has decreased oral intake. With his insensible fluid losses he actually could have a component of intravascular volume depletion. His right heart pressures would be elevated from his right heart dysfunction. 3. From a cardiac standpoint, would transfer to a medical floor. 4. The patient and his expressed to me the desire that he be a [id number] status. They will communicate this to Dr. Gallego. 5. Continue carvedilol. If there is no further significant junctional rhythm would consider restarting the evening dose. The patient becomes hypertensive overnight. After he receives his carvedilol in the morning, his blood pressure then becomes well controlled. 6. From a cardiac standpoint, his overall prognosis is poor. He has severe biventricular systolic dysfunction. I will be off until Monday09/19/2016. If a new or recurrent cardiac issue arises, please contact the [facility] care trainer installation helper.
[2016-09-17] VITALS (7 sets, daily range): BP systolic 97–162; BP diastolic 64–106; PULSE 49–69; TEMP 36.4–36.8; O2SAT 92–99
[2016-09-17] MEDS: HEPARIN SOD 5000 UNIT/0.5 ML CARP SQ SCH ×3 (05:34→21:14)
[2016-09-17] MEDS: INSULIN ASPART 100 UNITS/ML 3 ML PEN SC SCH ×4 (07:00→20:34)
[2016-09-17] MEDS: ASPIRIN 81 MG ECTAB PO SCH (07:59)
[2016-09-17] MEDS: AMIODARONE 200 MG TAB PO SCH ×2 (07:59→21:11)
[2016-09-17] MEDS: CARVEDILOL 3.125 MG TAB PO SCH (08:00)
[2016-09-17] MEDS: MINERAL OIL 473 ML BOTTLE PO SCH (08:00)
[2016-09-17] MEDS: COLLAGENASE OINT 30 GM TUBE EXT SCH (08:54)
[2016-09-17] MEDS: CEFDINIR 300 MG CAP PO SCH ×2 (08:54→21:11)
--- NOTE | 2016-09-17 09:37 | Pharmacy Progress Note ---
Glycemic: Assessment & Plan Date of Service Sep 17, 2016. Assessment & Plan ASSESSMENT: * ADA & AACE recommend a goal blood sugar range 140-180 mg/dl for the majority of critically ill & non-critically ill patients. However, more stringent targets may be selected in individual cases. 09/17/16 * 76 y/o M, originally presenting with SVT and fluid overload as well as hyperglycemia * Pt was initiated on basal/bolus regimen which has been titrated to effect * Yesterday I maintained Lantus at bedtime and a tighter Novolog which patient did seem to tolerate well * Today, Fasting BSG 199 mg/dL- increase Lantus tonight by 20% * Given age and co-morbidities I do not want to be overly aggressive and will continue to make modest changes when necessary * Will reassess tomorrow morning PLAN FOR INPATIENT GLYCEMIC CONTROL: * Lantus qHS per scale * For BSG below 120 mg/dl: Give 5 units * For BSG above 120 mg/dl: Give 10 units * Novolog ACHS * Goal range Low 140 mg/dL - High 180 mg/dL * Correction factor 30 mg/dl/unit * Carb ratio to 1 unit per 10 grams CHO consumed RECOMMENDATIONS FOR DISCHARGE: * The patient may be more willing to begin diabetic treatment at discharge, though he would prefer to avoid insulin * Per CDE note, patient and knowledgeable about dietary sugars and carbohydrates * encourage lifestyle/dietary changes to help improve glycemic control * CV/renal co-morbidities may drive oral therapy choice * would avoid thiazolidinediones * may need to avoid metformin if continues to have poor renal function * May try GLP1 inhibitor (Victoza, Liraglutide) as they have shown favorable CV effects * Please note that the plan above was derived based on current level of insulin resistance and hospital stress. These recommendations are appropriate for inpatient admission only. Plan of care upon discharge will need to be reassessed to avoid potential outpatient hypo/hyperglycemia. Thank you.
[2016-09-17] MEDS ORDERED: POLYETHYLENE (MIRALAX) 17 GM PACK PO PRN (11:00)
[2016-09-17] MEDS ORDERED: POLYETHYLENE (MIRALAX) 17 GM PACK PO ONE (11:15)
[2016-09-17] MEDS ORDERED: FUROSEMIDE 40 MG TAB PO ONE (11:15)
--- NOTE | 2016-09-17 17:52 | Progress Note ---
Subjective Date of Service: Sep 17, 2016. Subjective Pt evaluation today including: conversation w/ patient, conversation w/ family , physical exam, chart review, lab review, review of inpatient medication list notes that he's not himself yet but slowly returning to normal still somewhat confused and that limits veracity of HPI and ROS - but seems to be breathing better than before just not normal yet, leg doesn't seem to be hurting much. no fevers. extensive d/w on discharge planning Problem List Medical Problems: (1) Dyspnea Status: Acute Review of Systems Constitutional: No chills, No fever, No sweats Respiratory: + see HPI, + shortness of breath (see above) Cardiac: No chest pain Skin: + see HPI ros otherwise negaive except for as above Objective Vital Signs Date Time Temp Pulse Resp B/P Pulse Ox O2 Delivery O2 Flow Rate FiO2 09/17/16 16:00 Room Air 09/17/16 15:56 36.8 64 20 97/64 99 Room Air 09/17/16 10:19 69 20 153/106 98 Room Air 09/17/16 08:33 36.7 49 18 96 09/17/16 08:00 Room Air 09/17/16 07:51 36.6 60 20 142/91 93 Room Air 09/17/16 04:12 36.7 49 20 138/86 96 Room Air 09/17/16 04:00 Room Air 09/17/16 00:24 36.4 54 18 162/93 92 Room Air 09/17/16 00:00 Room Air 09/16/16 21:15 78 95 09/16/16 20:02 36.9 88 20 139/88 93 Room Air 09/16/16 20:00 Room Air Physical Exam General Appearance: no apparent distress Eyes: EOMI ENT: hearing grossly normal Neck: trachea midline Respiratory/Chest: no respiratory distress, no accessory muscle use, + rales ( bibasilar) Cardiovascular: regular rate, rhythm (distant) Extremities: + pertinent finding (LLE resolving erythema not reallly tender at all mccann ulcer dressed no erythema extending beyond dressng) 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 -doing surprisingly well. appearing euvolemic, stablized -rales - resume lasix @ 40mg daily and follow - despite recurrence of rales no distress acute metabolic encephalopathy -probably mixed in origin from anxiety --> lack of sleep --> ativan as main culprits. doubt percocet as inciting since he had several doses without problems, but will have to follow it as a possible problem. d/w extensively -no focal neuro deficits, and continues to show slow improvement as of 09/17 -no other clear infectious, toxic, or metabolic culprits at this time but will continue to reassess Left leg arterial ulceration, severe PAD, cellulitis-lactate is normal, afebrile , no leukocytosis or signs of sepsis. The leg is extremely painful. -venous dopplers negative -Consider arterial Dopplers however he is not a great candidate for any sort of vascular procedure at this time -improving nicely - cahnge to PO cefdinir renally dosed -ongoing wound care -vascular eval - either as outpt if improves as expected with local care or inpatient if would fails to show proper healing -med management for PAD same as for CAD -appears improving, albeit slowly - but thus far no need for urgent inpatient vascular eval Hyperglycemia-/uncontrolled DM2, most likely with diabetes mellitus type 2 -A1c >12 -sugars have been reasonable on surprisingly little insulin - continue insulin mangement and follow Abnormal TSH-7.7, free T4 is normal -Repeat as an outpatient, no treatment for now CKD stage III-creatinine is around his baseline at 1.5 -Renally dose medications and avoid nephrotoxins -follow up Cr w resumption of lasix DVT prophylaxis-heparin subcutaneous leg edema -given some response to diuretic but not totally - as per his hx - suspect venous insufficiency in addition to CHF - once improved enough, would want to try compression if possible w arterial insufficiency leg pain -from ulcer, cellulitis - pain does appear near totally improved - continue percocet prn for now (follow w encephalopathy as above, may need to hold for a day and follow) junctional rhythm - asymptomatic and rare -continue current doses of amiodarone and coreg, stable for med surg hypokalemia -repleted -mag ok constipation -miralax until BM, change plans if no BM after 5 doses dc geovanna goals of care -DNR -work towards palliative approach -hopefully home early this coming week - d/w
[2016-09-17] MEDS: ATORVASTATIN 40 MG TAB PO SCH (21:11)
[2016-09-17] MEDS: INSULIN GLARGINE SOLOSTAR 100 UNITS/ML 3 ML PEN SC SCH (21:13)
[2016-09-18] MEDS: OXYCODONE/ACETAMINOPHEN 5-325 TAB PO PRN (06:09)
[2016-09-18] MEDS: HEPARIN SOD 5000 UNIT/0.5 ML CARP SQ SCH ×3 (06:11→20:20)
[2016-09-18 07:43] VITALS: BP 99/72; TEMP 36.3; O2SAT 96
[2016-09-18] MEDS: CEFDINIR 300 MG CAP PO SCH ×2 (07:44→20:18)
[2016-09-18] MEDS: COLLAGENASE OINT 30 GM TUBE EXT SCH (07:44)
[2016-09-18] MEDS: AMIODARONE 200 MG TAB PO SCH ×2 (07:44→20:18)
[2016-09-18] MEDS: ASPIRIN 81 MG ECTAB PO SCH (07:45)
[2016-09-18] MEDS: MINERAL OIL 473 ML BOTTLE PO SCH (07:45)
[2016-09-18] MEDS: CARVEDILOL 3.125 MG TAB PO SCH (07:50)
[2016-09-18 07:51] VITALS: PULSE 66
[2016-09-18] MEDS: FUROSEMIDE 40 MG TAB PO SCH (07:52)
[2016-09-18 08:13] LABS: BUN/CREATININE RATIO 26.8 (10-20); CALCIUM 8.9 mg/dl (8.5-10.1); CREATININE 1.9 mg/dl (0.60-1.40); MAGNESIUM 2.3 mg/dl (1.8-2.4); POTASSIUM 4.5 mmol/L (3.5-5.1)
[2016-09-18] MEDS: INSULIN ASPART 100 UNITS/ML 3 ML PEN SC SCH ×4 (08:46→20:15)
--- NOTE | 2016-09-18 11:07 | Pharmacy Progress Note ---
Glycemic: Assessment & Plan Date of Service Sep 18, 2016. Assessment & Plan ASSESSMENT: * ADA & AACE recommend a goal blood sugar range 140-180 mg/dl for the majority of critically ill & non-critically ill patients. However, more stringent targets may be selected in individual cases. 09/18/16 * 76 y/o M, originally presenting with SVT and fluid overload as well as hyperglycemia * Pt was initiated on basal/bolus regimen which has been titrated to effect * This weekend, orders have been maintained and BSGs look good * Given age and co-morbidities I do not want to be overly aggressive and will continue to make modest changes when necessary PLAN FOR INPATIENT GLYCEMIC CONTROL: * Lantus 8 qHS * For BSG below 120 mg/dl: HOLD Lantus * Novolog ACHS * Goal range Low 140 mg/dL - High 180 mg/dL * Correction factor 30 mg/dl/unit * Carb ratio to 1 unit per 10 grams CHO consumed RECOMMENDATIONS FOR DISCHARGE: * The patient may be more willing to begin diabetic treatment at discharge, though he would prefer to avoid insulin * Per CDE note, patient and knowledgeable about dietary sugars and carbohydrates * encourage lifestyle/dietary changes to help improve glycemic control * CV/renal co-morbidities may drive oral therapy choice * would avoid thiazolidinediones * may need to avoid metformin if continues to have poor renal function * May try GLP1 inhibitor (Victoza, Liraglutide) as they have shown favorable CV effects * Please note that the plan above was derived based on current level of insulin resistance and hospital stress. These recommendations are appropriate for inpatient admission only. Plan of care upon discharge will need to be reassessed to avoid potential outpatient hypo/hyperglycemia. Thank you.
[2016-09-18 15:33] VITALS: BP 131/92; PULSE 75; TEMP 36.6; O2SAT 62; O2SAT 93
[2016-09-18 15:50] VITALS: O2SAT 100
--- NOTE | 2016-09-18 16:22 | Progress Note ---
Subjective Date of Service: Sep 18, 2016. Subjective Pt evaluation today including: conversation w/ patient, conversation w/ family , physical exam, chart review, lab review, review of inpatient medication list continues to improve. still a litlte easily confused but much more lucid and logical with thought process than before. more aware of proximal circumstances. breathing is better than it was, still not perfect but better than it was. leg wound and leg pain improving. extensive d/w pt and on dispo planning Problem List Medical Problems: (1) Dyspnea Status: Acute Review of Systems ros otherwise negative except for as above Objective Vital Signs Date Time Temp Pulse Resp B/P Pulse Ox O2 Delivery O2 Flow Rate FiO2 09/18/16 15:33 36.6 75 18 131/92 62 Nasal Cannula 3.0 09/18/16 08:00 Room Air 09/18/16 07:51 66 09/18/16 07:43 36.3 22 99/72 96 Room Air 09/18/16 00:30 Room Air 09/17/16 22:54 36.8 49 20 158/71 95 Room Air 09/17/16 20:00 Room Air Physical Exam General Appearance: no apparent distress Eyes: EOMI ENT: hearing grossly normal Neck: trachea midline Respiratory/Chest: no respiratory distress, no accessory muscle use, + pertinent finding (bibasilar faint rhonchi in place of yesterday's rales. remainder of lungs cta no r/r/w good effort no accessory muscles) Extremities: + pedal edema (LLE edema unchanged but erythema near resolved and almost nontender. 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, alert, + pertinent finding ( see HPI - seems to have to work hard to maintain lucid thought process but is more coherent and logical than before) Skin: normal color, + pertinent finding (resolving erythema as above) Laboratory Results Last 24 Hours Test 09/17/16 16:34 09/17/16 19:43 09/18/16 06:42 09/18/16 07:49 Bedside Glucose 140 mg/dl 140 mg/dl 105 mg/dl Sodium Level 139 mmol/L Potassium Level 4.5 mmol/L Chloride Level 100 mmol/L Carbon Dioxide Level 29 mmol/L Anion Gap 10.0 mmol/L Blood Urea Nitrogen 51 mg/dl Creatinine 1.90 mg/dl Est Creatinine Clear Calc Drug Dose 35.5 ml/min Estimated GFR () 39.4 Estimated GFR (Non- 34.0 BUN/Creatinine Ratio 26.8 Random Glucose 117 mg/dl Calcium Level 8.9 mg/dl Magnesium Level 2.3 mg/dl Test 09/18/16 11:45 Bedside Glucose 164 mg/dl Assessment and Plan Acute on chronic severe systolic CHF, sustained ventricular tachycardia, severe PAD, hypertension, dyslipidemia and presumably ischemic cardiomyopathy although has never had a cardiac catheterization. -doing surprisingly well. faint rales from yesterday improving. overall appearing generally in a euvolemic range -resumed lasix @ 40mg daily and follow - despite recurrence of rales no distress and now rales fading -likely will go home on current med regimen, would anticipate ~weekly BMP for a few weeks to protect against "too dry" and home nursing assessments/home visits to protect against "too wet" acute metabolic encephalopathy -probably mixed in origin from anxiety --> lack of sleep --> ativan as main culprits. doubt percocet as inciting since he had several doses without problems, but will have to follow it as a possible problem. d/w extensively -no focal neuro deficits, and continues to show slow improvement as of 09/18 -no other clear infectious, toxic, or metabolic culprits at this time but will continue to reassess -interestingly as his mentation clears he describes some of what he was seeing and feeling while more delirious, and notes that since he's never really had a fear of "losing his mind" he wonders if that kept him from getting anxious about the situation and then getting worse Left leg arterial ulceration, severe PAD, cellulitis-lactate is normal, afebrile , no leukocytosis or signs of sepsis. pain improved dramatically -venous dopplers negative -Considered arterial Dopplers however he is not a great candidate for any sort of vascular procedure, nor does he want one -improving nicely - PO cefdinir to arbitrarily round out 14 days of treatment. d/w pt/ - with vascular insufficiency it's quite possible that cellulitis will be a recurring theme without a revascularization (which again he would not want and likely would not tolerate) -- for now will treat as acute infection - but if infections seem to recur over and over in short order after off abx and if mccann wound continues to fail to heal, would consider proph abx w something like a first gen cephalosporin, and expand as needed to higher gen if he gets acute cellulitis -ongoing wound care -med management for PAD same as for CAD -appears improving, albeit slowly Hyperglycemia-/uncontrolled DM2, most likely with diabetes mellitus type 2 -A1c >12 -sugars have been reasonable on surprisingly little insulin - continue insulin mangement and follow -at home likely a low dose oral med and diet changes - notes that cutting down/eliminating starchy carbs would likely be easy for them to do and would be preferable to a large and/or complicated med regimen Abnormal TSH-7.7, free T4 is normal -Repeat as an outpatient, no treatment for now CKD stage III -Renally dose medications and avoid nephrotoxins -follow up Cr w resumption of lasix DVT prophylaxis-heparin subcutaneous leg edema -given some response to diuretic but not totally - as per his hx - suspect venous insufficiency in addition to CHF - once improved enough, would want to try compression if possible w arterial insufficiency leg pain -from ulcer, cellulitis - pain does appear near totally improved - continue percocet prn for now (does not appear to be contributor to encephalopathy) junctional rhythm - asymptomatic and rare -continue current doses of amiodarone and coreg, stable for med surg hypokalemia -repleted -mag ok -f/u periodically as outpt constipation -miralax (improved) - discussed home use/range of dosing w goals of care -DNR -work towards palliative approach as overall guiding principle -hopefully home early this coming week - d/w , Rx for hospital bed written, case management setting up home nursing and home wound care; gin feeder working on physician who does home visits to assume his care
[2016-09-18 17:00] VITALS: O2SAT 100
[2016-09-18] MEDS: ATORVASTATIN 40 MG TAB PO SCH (20:19)
[2016-09-18] MEDS: INSULIN GLARGINE SOLOSTAR 100 UNITS/ML 3 ML PEN SC SCH (20:20)
[2016-09-19] VITALS: O2SAT 100
[2016-09-19] MEDS: HEPARIN SOD 5000 UNIT/0.5 ML CARP SQ SCH ×3 (06:10→21:36)
[2016-09-19 07:39] VITALS: BP 134/87; PULSE 56; TEMP 36.4; O2SAT 99
[2016-09-19] MEDS: CARVEDILOL 3.125 MG TAB PO SCH (08:00)
[2016-09-19] MEDS: ASPIRIN 81 MG ECTAB PO SCH (08:35)
[2016-09-19] MEDS: FUROSEMIDE 40 MG TAB PO SCH (08:35)
[2016-09-19] MEDS: MINERAL OIL 473 ML BOTTLE PO SCH (08:36)
[2016-09-19] MEDS: AMIODARONE 200 MG TAB PO SCH ×2 (08:36→21:30)
[2016-09-19] MEDS: CEFDINIR 300 MG CAP PO SCH ×2 (08:36→21:30)
[2016-09-19] MEDS: COLLAGENASE OINT 30 GM TUBE EXT SCH (08:36)
[2016-09-19] MEDS: INSULIN ASPART 100 UNITS/ML 3 ML PEN SC SCH ×4 (08:42→21:31)
--- NOTE | 2016-09-19 11:21 | Pharmacy Progress Note ---
Glycemic: Assessment & Plan Date of Service Sep 19, 2016. Assessment & Plan The patient is currently receiving 24 units of insulin per day. BSGs ranging 124 - 181 mg/dl over the past 24hrs. * Basal insulin: Lantus 8 units every 24 hours * Correctional Insulin: Novolog Correction per scale ACHS Goal Range: Low 140 mg/dL - High 180 mg/dL Correction Factor: 30 mg/dL/unit * Prandial insulin: Per carb ratio of 1 unit per 10 grams CHO consumed BSGs continue to improve, no changes needed to inpatient regimen at this time. Pharmacy will continue to monitor patient daily and write orders per [facility] inpatient glycemic control protocol. Thanks. * Please note that the plan above was derived based on current level of insulin resistance and hospital stress. These recommendations are appropriate for inpatient admission only. Plan of care upon discharge will need to be reassessed to avoid potential outpatient hypo/hyperglycemia.
[2016-09-19 11:32] LABS: BUN/CREATININE RATIO 25.6 (10-20); CALCIUM 8.9 mg/dl (8.5-10.1); POTASSIUM 4.2 mmol/L (3.5-5.1)
[2016-09-19] MEDS: TRIAMCINOLONE ACET 0.1% CR 80 GM TUBE EXT SCH ×3 (12:03→21:28)
--- NOTE | 2016-09-19 12:22 | DIAGNOSTIC IMAGING REPORT ---
CHEST 2 VIEWS ROUTINE CLINICAL HISTORY: Follow-up pulmonary edema. COMPARISON STUDY: Chest radiograph September 14, 2016. FINDINGS: There is no pneumothorax. Moderate cardiomegaly is unchanged. There is a small left pleural effusion with left basilar opacity. There is pulmonary vascular congestion. This has slightly increased. IMPRESSION: 1. Pulmonary vascular congestion, increased since prior exam. 2. Small left pleural effusion with left lower lung opacity which statistically reflects atelectasis. Electronically signed by: Jose Markham M.D. 09/19/2016 12:20 PM Dictated Date/Time: 09/19/2016 12:19 PM
[2016-09-19 15:45] VITALS: BP 117/79; PULSE 58; TEMP 36.9; O2SAT 97
[2016-09-19] MEDS: OXYCODONE/ACETAMINOPHEN 5-325 TAB PO PRN ×2 (16:58→21:29)
[2016-09-19] MEDS ORDERED: FUROSEMIDE INJ 40 MG in SYRINGE 0 ML IV ONE (17:00)
[2016-09-19] MEDS ORDERED: LACTULOSE SYRUP 20 GM/30 ML UDC PO ONE (17:00)
--- NOTE | 2016-09-19 20:41 | Progress Note ---
Subjective Date of Service: Sep 19, 2016. Subjective Pt evaluation today including: conversation w/ patient, conversation w/ family ( at bedside), physical exam, chart review, lab review, review of studies ( cxr), conversation w/ underwriting consultant (social work), review of inpatient medication list Pain: denies PO Intake: decent Voiding: no voiding problems no issues overnight has pruritic rash on back patient and his report that the main reason he has not been to the primary care doctor's office for years was because of difficulty exiting his apartment in [place] they have 30+ steps up to their apartment (no elevator is available) and he physically cannot get in/out easily they need a physician that does house calls he reports ongoing discomfort in left mccann ulcer Problem List Medical Problems: (1) Dyspnea Status: Acute Review of Systems Constitutional: No chills, No fever Respiratory: No cough, No dyspnea at rest Cardiac: No chest pain, No orthopnea Abdomen: No constipation, No pain Objective Vital Signs Date Time Temp Pulse Resp B/P Pulse Ox O2 Delivery O2 Flow Rate FiO2 09/19/16 15:45 36.9 58 20 117/79 97 Room Air 09/19/16 08:00 Room Air 09/19/16 07:39 36.4 56 20 134/87 99 Room Air 09/19/16 00:00 100 Room Air Physical Exam General Appearance: no apparent distress ENT: pharynx normal Neck: + JVD Respiratory/Chest: no respiratory distress, no accessory muscle use, + rales ( bases) Cardiovascular: regular rate, rhythm, no gallop, no murmur Abdomen: normal bowel sounds, non tender, soft, no organomegaly Extremities: + pedal edema (left leg, about 2-3+; right leg 1-2+; pulses 2+ b/ l ) Neurologic/Psychiatric: alert, oriented x 3 Skin: + pertinent finding (shallow ulcer with eschar, left mccann; minimal surrounding erythema ) Laboratory Results Last 24 Hours Test 09/19/16 08:02 09/19/16 10:54 09/19/16 11:53 09/19/16 16:35 Bedside Glucose 137 mg/dl 172 mg/dl 171 mg/dl Erythrocyte Sedimentation Rate 27 mm/hr Sodium Level 137 mmol/L Potassium Level 4.2 mmol/L Chloride Level 101 mmol/L Carbon Dioxide Level 28 mmol/L Anion Gap 8.0 mmol/L Blood Urea Nitrogen 51 mg/dl Creatinine 2.00 mg/dl Est Creatinine Clear Calc Drug Dose 33.8 ml/min Estimated GFR () 37.0 Estimated GFR (Non- 31.9 BUN/Creatinine Ratio 25.6 Random Glucose 212 mg/dl Calcium Level 8.9 mg/dl Ammonia 44.0 umol/L Assessment and Plan 76yo male with: 1. acute/chronic severe systolic CHF - acute component improved. Clinically still volume overloaded and cxr with ongoing edema. Will give additional dose of IV lasix today and re-eval in the AM. Continue BB. Not SANDY/ARB candidate due to CKD. Re-eval volume status in AM. 2. acute metabolic encephalopathy - improved per but no specific etiology ever found. Hepatic encephalopathy due to hepatic congestion? Checked ammonia level and mildly elevated. Will Rx with lactulose and re-eval level in 48 hours. 3. left leg venous ulceration - appreciate Wound care assistance. Continue omnicef for possible superimposed infection. Day #9 of abx. Plan 14 day course. 4. PAD by history - continue aspirin, statin, etc. 5. uncontrolled T2DM - improved control. Appreciate pharmacy assistance. 6. CKD stage 3 with superimposed acute kidney injury - latter 2nd to diuresis for #1. BMP am. 7. Abnormal TSH-7.7, free T4 is normal - repeat in 3-4 weeks as outpatient. If TSH still high, in light of #1, would Rx. 8. DVT prophylaxis - SC heparin. 9. v-tach - s/p amiodarone as recommended by cardiology. 10. social - discussed his after care with case management today. We are attempting to secure house call visits by a physician who does such. He will need home health nursing as well. If he continues to decline with time he would be good candidate for hospice. He remains a DNR. extensively updated at bedside today. Continued [facility] stay due to: other (social issues, CHF) Discharge planning: home with home health
[2016-09-19] MEDS: ATORVASTATIN 40 MG TAB PO SCH (21:31)
[2016-09-19] MEDS: INSULIN GLARGINE SOLOSTAR 100 UNITS/ML 3 ML PEN SC SCH (21:35)
[2016-09-19 23:16] VITALS: BP 123/73; PULSE 58; TEMP 36.4; O2SAT 98
[2016-09-20] MEDS: HEPARIN SOD 5000 UNIT/0.5 ML CARP SQ SCH ×3 (05:45→21:19)
[2016-09-20 07:45] VITALS: BP 139/94; PULSE 66; TEMP 36.3; O2SAT 96
[2016-09-20] MEDS: CEFDINIR 300 MG CAP PO SCH ×2 (09:10→21:15)
[2016-09-20] MEDS: ASPIRIN 81 MG ECTAB PO SCH (09:10)
[2016-09-20] MEDS: CARVEDILOL 3.125 MG TAB PO SCH (09:10)
[2016-09-20] MEDS: MINERAL OIL 473 ML BOTTLE PO SCH (09:11)
[2016-09-20] MEDS: AMIODARONE 200 MG TAB PO SCH ×2 (09:12→21:15)
[2016-09-20] MEDS: INSULIN ASPART 100 UNITS/ML 3 ML PEN SC SCH ×4 (09:14→21:17)
[2016-09-20] MEDS: COLLAGENASE OINT 30 GM TUBE EXT SCH (09:16)
[2016-09-20] MEDS: TRIAMCINOLONE ACET 0.1% CR 80 GM TUBE EXT SCH ×3 (09:16→21:16)
[2016-09-20 11:22] LABS: BUN/CREATININE RATIO 24.9 (10-20); CALCIUM 8.8 mg/dl (8.5-10.1); CREATININE 2.1 mg/dl (0.60-1.40); MAGNESIUM 2.3 mg/dl (1.8-2.4); POTASSIUM 3.8 mmol/L (3.5-5.1)
--- NOTE | 2016-09-20 12:48 | Pharmacy Progress Note ---
Glycemic: Assessment & Plan Date of Service Sep 20, 2016. Assessment & Plan The patient is currently receiving 23 units of insulin per day. BSGs ranging 139 - 171 mg/dl over the past 24hrs. * Basal insulin: Lantus 8 units every 24 hours * Correctional Insulin: Novolog Correction per scale ACHS Goal Range: Low 140 mg/dL - High 180 mg/dL Correction Factor: 30 mg/dL/unit * Prandial insulin: Per carb ratio of 1 unit per 10 grams CHO consumed ASSESSMENT: * BSGs fairly well controlled but just slightly above goal, although not worried about too tight of control with comorbidities so do not want to be overly aggressive PLAN: * TIGHTEN CF slightly to 25 mg/dL/unit * Continue Lantus 8 units qHS * Continue CR of 10 Pharmacy will continue to monitor patient daily and write orders per [facility] inpatient glycemic control protocol. Thanks. * Please note that the plan above was derived based on current level of insulin resistance and hospital stress. These recommendations are appropriate for inpatient admission only. Plan of care upon discharge will need to be reassessed to avoid potential outpatient hypo/hyperglycemia.
[2016-09-20] MEDS ORDERED: BUMETANIDE IV 1 MG in SYRINGE 0 ML IV ONE (13:45)
[2016-09-20] MEDS ORDERED: POTASSIUM CHLORIDE 10 MEQ TABCR PO ONE (14:00)
[2016-09-20] MEDS ORDERED: LACTULOSE SYRUP 20 GM/30 ML UDC PO ONE (14:00)
[2016-09-20] MEDS: IPRATROPIUM BROMIDE/ALBUTEROL respimat INH INH SCH ×3 (14:32→21:17)
[2016-09-20 15:09] VITALS: BP 126/88; PULSE 71; TEMP 36.6; O2SAT 98
[2016-09-20] MEDS: ATORVASTATIN 40 MG TAB PO SCH (21:16)
[2016-09-20] MEDS: INSULIN GLARGINE SOLOSTAR 100 UNITS/ML 3 ML PEN SC SCH (21:19)
--- NOTE | 2016-09-20 22:19 | Progress Note ---
Subjective Date of Service: Sep 20, 2016. Subjective Pt evaluation today including: conversation w/ patient, conversation w/ family ( at bedside), physical exam, chart review, lab review, review of inpatient medication list Pain: legs, worse on left - but chronic PO Intake: normal Voiding: no voiding problems feels "pretty good" today denies orthopnea, sob at rest or any significant dyspnea w/ exertion no chest pain pleased he can have an MD visit him at home no new complaints confusion essentially resolved per Problem List Medical Problems: (1) Dyspnea Status: Acute Objective Vital Signs Date Time Temp Pulse Resp B/P Pulse Ox O2 Delivery O2 Flow Rate FiO2 09/20/16 16:46 Room Air 09/20/16 15:09 36.6 71 18 126/88 98 Room Air 09/20/16 10:21 Room Air 09/20/16 07:45 36.3 66 20 139/94 96 Room Air 09/20/16 00:00 Room Air 09/19/16 23:16 36.4 58 20 123/73 98 Room Air 09/19/16 22:40 Room Air Physical Exam General Appearance: no apparent distress, + obese ENT: pharynx normal Neck: no JVD Respiratory/Chest: no respiratory distress, no accessory muscle use, + crackles (bases) Cardiovascular: regular rate, rhythm, no gallop, no murmur Abdomen: normal bowel sounds, non tender, soft, no organomegaly Extremities: + pedal edema (<1+ on right, about 1-2+ on left - improved) Neurologic/Psychiatric: alert, oriented x 3, + pertinent finding (minimal asterixis of hands) Skin: + rash (back - improved), + pertinent finding (left mccann ulcer unchanged (eschar present); no cellulitis; several other <1cm areas of erythema unchanged) Laboratory Results Last 24 Hours Test 09/20/16 07:28 09/20/16 10:52 09/20/16 11:19 09/20/16 16:44 Bedside Glucose 139 mg/dl 147 mg/dl 134 mg/dl Sodium Level 138 mmol/L Potassium Level 3.8 mmol/L Chloride Level 102 mmol/L Carbon Dioxide Level 28 mmol/L Anion Gap 8.0 mmol/L Blood Urea Nitrogen 52 mg/dl Creatinine 2.10 mg/dl Est Creatinine Clear Calc Drug Dose 32.5 ml/min Estimated GFR () 34.9 Estimated GFR (Non- 30.1 BUN/Creatinine Ratio 24.9 Random Glucose 158 mg/dl Calcium Level 8.8 mg/dl Magnesium Level 2.3 mg/dl Test 09/20/16 20:35 Bedside Glucose 171 mg/dl Assessment and Plan 76yo male with: 1. acute/chronic severe systolic CHF - acute component improved, probably near euvolemic status 1 more dose of IV bumex today then reassess in AM but suspect we are done diuresing. Continue BB. Not SANDY/ARB candidate due to CKD. 2. acute metabolic encephalopathy - improved per but no specific etiology ever found. Hepatic encephalopathy due to hepatic congestion? Checked ammonia level and mildly elevated. Rx with lactulose yesterday & today. Repeat ammonia in am. 3. left leg venous ulceration - appreciate Wound care assistance. Continue omnicef for possible superimposed infection. Day #10 of abx. Plan 14 day course. 4. PAD by history - continue aspirin, statin, etc. 5. uncontrolled T2DM - improved control. Appreciate pharmacy assistance. 6. CKD stage 3 with superimposed acute kidney injury - latter 2nd to diuresis for #1. BMP stable today. Repeat BMP am. 7. Abnormal TSH-7.7, free T4 is normal - repeat in 3-4 weeks as outpatient. If TSH still high, in light of #1, would Rx. 8. DVT prophylaxis - SC heparin. 9. v-tach - s/p amiodarone as recommended by cardiology. 10. rash - contact dermatitis - improved. Cont triamcinolone cream TID. 11. social - Fortunately there IS a physician that does house calls and that person will assume his care after discharge. He will also need nursing. Hospital bed needed as well. Good candidate for home PT, OT. updated. d/c tomorrow ?? Continued [facility] stay due to: other (social issues, CHF) Discharge planning: home with home health
[2016-09-20 23:43] VITALS: BP 134/94; PULSE 72; TEMP 36.7; O2SAT 99
[2016-09-21] MEDS: HEPARIN SOD 5000 UNIT/0.5 ML CARP SQ SCH ×3 (05:42→20:38)
[2016-09-21 07:05] VITALS: BP 128/89; PULSE 50; TEMP 36.5; O2SAT 94
[2016-09-21] MEDS: ASPIRIN 81 MG ECTAB PO SCH (09:05)
[2016-09-21] MEDS: CARVEDILOL 3.125 MG TAB PO SCH (09:05)
[2016-09-21] MEDS: CEFDINIR 300 MG CAP PO SCH ×2 (09:05→20:31)
[2016-09-21] MEDS: AMIODARONE 200 MG TAB PO SCH ×2 (09:06→20:31)
[2016-09-21] MEDS: MINERAL OIL 473 ML BOTTLE PO SCH (09:06)
[2016-09-21] MEDS: COLLAGENASE OINT 30 GM TUBE EXT SCH (09:07)
[2016-09-21] MEDS: TRIAMCINOLONE ACET 0.1% CR 80 GM TUBE EXT SCH ×3 (09:07→20:32)
[2016-09-21] MEDS: IPRATROPIUM BROMIDE/ALBUTEROL respimat INH INH SCH ×4 (09:07→20:39)
[2016-09-21] MEDS: INSULIN ASPART 100 UNITS/ML 3 ML PEN SC SCH ×4 (09:18→20:35)
[2016-09-21 09:19] VITALS: BP 121/87; PULSE 65; O2SAT 98
[2016-09-21 10:54] LABS: BUN/CREATININE RATIO 23.8 (10-20); CALCIUM 8.6 mg/dl (8.5-10.1); CREATININE 2.2 mg/dl (0.60-1.40); POTASSIUM 4.3 mmol/L (3.5-5.1)
--- NOTE | 2016-09-21 11:47 | WOUND PROGRESS NOTE ---
DATE: 09/21/2016 SUBJECTIVE: The patient is seen today for reevaluation of a venous stasis ulceration to the left lower extremity. The patient states he has noticed some decrease in swelling at this site and pain is also decreased but still present. The patient denies any fever, chills or night sweats. The patient denies any other systemic complaints. OBJECTIVE: The patient's vital signs were reviewed and found to be unremarkable. The patient is afebrile. The site today measures the same as 1 week ago 7 x 4.7 x 0.1 cm. There is still persistent eschar present at the site. There is no active drainage. There is some minimal periwound erythema noted. Edema is +1 pitting. There is still tenderness to palpation in the periwound region. ASSESSMENT: Venostasis ulceration in the face of secondary peripheral edema, stable. PLAN: At this time, the site did require further scoring which after the application of Xylocaine 4% this was performed with a #11 blade. No bleeding occurred. The patient has substantial pain with this procedure. The site will continue to be managed with Santyl and gauze changed on a daily basis. One layer Tubigrip will be applied to the site. Patient will be reevaluated in 1 week. This represented a nonexcisional debridement of less than 20 square cm.
--- NOTE | 2016-09-21 11:57 | DIAGNOSTIC IMAGING REPORT ---
ULTRASOUND LEFT LOWER EXTREMITY ARTERIAL CLINICAL HISTORY: Left leg ulcer. COMPARISON STUDY: No priors. TECHNIQUE: Real-time, grayscale, and color Doppler sonography of the arteries of the left lower extremity is performed from the middle crease to the foot. The patient was unable to tolerate ankle-brachial index assessment. FINDINGS: There is advanced atherosclerotic plaque and irregularly seen throughout the arteries of the left lower extremity. There are biphasic waveforms in the left common femoral artery with velocities measuring up to 123 cm/s. The left profunda femoris artery is patent. Velocities are elevated measuring up to 300 cm/s suggesting some degree of stenosis. There is complete thrombosis of the left superficial femoral artery. There is reconstitution of the distal left superficial femoral artery with monophasic waveforms. Velocities within the distal superficial femoral artery measure up to 22 cm/s. There is monophasic flow within the popliteal artery and the calf vessels. Velocities within the popliteal artery and the calf vessels measure up to 20 cm/s. Reversal of flow is noted within the peroneal artery. The dorsalis pedis artery appears patent with velocities measuring up to 10 cm/s. IMPRESSION: 1. Severe peripheral vascular disease with complete thrombosis throughout the left superficial femoral artery. There is reconstitution just above the knee. 2. Monophasic flow is shown in the calf. Reversal of flow is seen within the left peroneal artery. 3. Elevated velocities within the left profunda femoris artery suggest high-grade stenosis. Dictated: 09/21/2016 11:42 AM Transcribed: 09/21/2016 11:55 AM Stephan Electronically signed by: Kishan Oliveira M.D. 09/21/2016 11:58 AM Dictated Date/Time: 09/21/2016 11:42 AM
--- NOTE | 2016-09-21 13:02 | Pharmacy Progress Note ---
Glycemic: Assessment & Plan Date of Service Sep 21, 2016. Assessment & Plan The patient is currently receiving 23 units of insulin per day. BSGs ranging 116 - 171 mg/dl over the past 24hrs. * Basal insulin: Lantus 8 units every 24 hours * Correctional Insulin: Novolog Correction per scale ACHS Goal Range: Low 140 mg/dL - High 180 mg/dL Correction Factor: 25 mg/dL/unit * Prandial insulin: Per carb ratio of 1 unit per 10 grams CHO consumed BSGs continue to improve, no changes needed to inpatient regimen at this time. Pharmacy will continue to monitor patient daily and write orders per [facility] inpatient glycemic control protocol. Thanks. * Please note that the plan above was derived based on current level of insulin resistance and hospital stress. These recommendations are appropriate for inpatient admission only. Plan of care upon discharge will need to be reassessed to avoid potential outpatient hypo/hyperglycemia.
[2016-09-21] MEDS ORDERED: FUROSEMIDE INJ 80 MG in SYRINGE 0 ML IV ONE (14:15)
[2016-09-21 15:13] VITALS: BP 137/67; PULSE 62; TEMP 36.4; O2SAT 99
[2016-09-21] MEDS: ATORVASTATIN 40 MG TAB PO SCH (20:31)
[2016-09-21] MEDS: INSULIN GLARGINE SOLOSTAR 100 UNITS/ML 3 ML PEN SC SCH (20:39)
[2016-09-22] MEDS: OXYCODONE/ACETAMINOPHEN 5-325 TAB PO PRN (00:39)
[2016-09-22] MEDS: HEPARIN SOD 5000 UNIT/0.5 ML CARP SQ SCH ×3 (05:48→20:58)
[2016-09-22 07:47] VITALS: BP 152/81; PULSE 75; TEMP 36.3; O2SAT 90
--- NOTE | 2016-09-22 07:53 | Progress Note ---
Subjective Date of Service: Sep 21, 2016. Subjective Pt evaluation today including: conversation w/ patient, conversation w/ family ( at bedside), physical exam, chart review, lab review, review of inpatient medication list Pain: legs - no change PO Intake: normal Voiding: no voiding problems today he is having waves of anxiety with dyspnea has noted the dyspnea for the last 1-2 days he denies any cough patient reports he has little interest in returning to the hospital in the future if he gets sick again he states "I want to live a certain lifestyle" (ie live as he pleases in his apartment) he openly admits he does not like physicians telling him to do things he "clearly can't do" he and his are open to hospice Problem List Medical Problems: (1) Dyspnea Status: Acute Review of Systems Constitutional: No fever Respiratory: + dyspnea on exertion, + shortness of breath, No cough Cardiac: + orthopnea, No chest pain Abdomen: No pain Objective Vital Signs Date Time Temp Pulse Resp B/P Pulse Ox O2 Delivery O2 Flow Rate FiO2 09/21/16 16:00 Nasal Cannula 2.0 09/21/16 15:13 36.4 62 22 137/67 99 2.0 09/21/16 09:19 65 121/87 98 Room Air 09/21/16 07:53 Nasal Cannula 2.0 09/21/16 07:05 36.5 50 18 128/89 94 2.0 09/20/16 23:45 Nasal Cannula 2.0 09/20/16 23:43 36.7 72 18 134/94 99 2.0 Physical Exam General Appearance: + mild distress (tachypneic, dyspneic -- but intermittent) ENT: pharynx normal Neck: + JVD Respiratory/Chest: + respiratory distress, + decreased breath sounds (bases), + wheezing Cardiovascular: regular rate, rhythm, no gallop Abdomen: normal bowel sounds, non tender, soft, no organomegaly Extremities: + pertinent finding (<1+ edema on right; 2+ edema on left) Neurologic/Psychiatric: alert, oriented x 3 Skin: + pertinent finding (ulcer w/ eschar on left mccann; no cellulitis; several other small punctate areas of ulceration but no change ) Laboratory Results Last 24 Hours Test 09/20/16 20:35 09/21/16 07:36 09/21/16 10:19 09/21/16 11:54 Bedside Glucose 171 mg/dl 125 mg/dl 116 mg/dl Sodium Level 139 mmol/L Potassium Level 4.3 mmol/L Chloride Level 102 mmol/L Carbon Dioxide Level 30 mmol/L Anion Gap 7.0 mmol/L Blood Urea Nitrogen 52 mg/dl Creatinine 2.20 mg/dl Est Creatinine Clear Calc Drug Dose 31.1 ml/min Estimated GFR () 33.0 Estimated GFR (Non- 28.5 BUN/Creatinine Ratio 23.8 Random Glucose 170 mg/dl Calcium Level 8.6 mg/dl Ammonia 31.0 umol/L Test 09/21/16 17:08 Bedside Glucose 99 mg/dl Assessment and Plan 76yo male with: 1. acute respiratory distress today 2nd to ongoing acute/chronic severe systolic CHF - will give lasix 80mg IV x 1 now. CPAP. CXR am. Cont BB. Not SANDY/ARB candidate due to CKD. 2. acute metabolic encephalopathy - suspect 2nd to mild hepatic encephalopathy due to hepatic congestion. Ammonia improved. Lactulose 15cc daily for prevention of recurrence. 3. left leg venous ulceration - appreciate Wound care assistance. Continue omnicef for possible superimposed infection. Day #11 of abx. Plan 14 day course. Note from Dr. Aguirre reviewed, and dopplers reviewed. 4. PAD - severe - continue aspirin, statin, etc. Quit smoking. 5. uncontrolled T2DM - improved control. Appreciate pharmacy assistance. 6. CKD stage 3 with superimposed acute kidney injury - latter 2nd to diuresis for #1. BMP stable today. Repeat BMP am. 7. Abnormal TSH-7.7, free T4 is normal - repeat in 3-4 weeks as outpatient. If TSH still high, in light of #1, would Rx. 8. DVT prophylaxis - SC heparin. 9. v-tach - s/p amiodarone as recommended by cardiology. 10. rash - contact dermatitis - resolved. Cont triamcinolone cream TID. 11. social - Fortunately there IS a physician that does house calls and that person will assume his care after discharge. He will also need nursing. Hospital bed needed as well. Hospice discussed today; patient/ leaning towards such. updated. hold off on discharge due to #1 today Continued [facility] stay due to: other (social issues, CHF) Discharge planning: home with home health
[2016-09-22] MEDS: COLLAGENASE OINT 30 GM TUBE EXT SCH (08:00)
[2016-09-22] MEDS: TRIAMCINOLONE ACET 0.1% CR 80 GM TUBE EXT SCH ×3 (08:00→20:50)
[2016-09-22 08:20] VITALS: O2SAT 90
--- NOTE | 2016-09-22 08:29 | DIAGNOSTIC IMAGING REPORT ---
CHEST 2 VIEWS ROUTINE HISTORY: Short of breath. COMPARISON: Chest 09/19/2016. FINDINGS: The heart remains moderately enlarged. Mild interstitial pulmonary edema and small bilateral pleural effusions persist. No pneumothorax. IMPRESSION: No change in the mild interstitial pulmonary edema and small bilateral pleural effusions. Electronically signed by: Dean Blandon M.D. 09/22/2016 8:27 AM Dictated Date/Time: 09/22/2016 8:26 AM
[2016-09-22] MEDS: ASPIRIN 81 MG ECTAB PO SCH (08:58)
[2016-09-22] MEDS: CARVEDILOL 3.125 MG TAB PO SCH (08:58)
[2016-09-22] MEDS: MINERAL OIL 473 ML BOTTLE PO SCH (08:59)
[2016-09-22] MEDS: CEFDINIR 300 MG CAP PO SCH ×2 (08:59→20:50)
[2016-09-22] MEDS: IPRATROPIUM BROMIDE/ALBUTEROL respimat INH INH SCH ×4 (08:59→20:50)
[2016-09-22] MEDS: AMIODARONE 200 MG TAB PO SCH ×2 (08:59→20:50)
[2016-09-22] MEDS: INSULIN ASPART 100 UNITS/ML 3 ML PEN SC SCH ×4 (09:08→21:15)
[2016-09-22 09:54] LABS: BLOOD UREA NITROGEN 57 mg/dl (7-18); BUN/CREATININE RATIO 25.8 (10-20); CALCIUM 8.4 mg/dl (8.5-10.1); CARBON DIOXIDE 18 mmol/L (21-32); CHLORIDE 106 mmol/L (98-107); GLUCOSE 95 mg/dl (70-99); SODIUM 138 mmol/L (136-145)
[2016-09-22] MEDS: FLUTICASONE/SALMETEROL 250/50 (ADVAIR) 14 PUFF/1 INHALER INH SCH ×2 (15:15→20:50)
[2016-09-22 16:08] VITALS: BP 143/82; PULSE 55; TEMP 36.5; O2SAT 100
[2016-09-22] MEDS: MoRPHine SULFATE 15 MG/0.75 ML UDP PO PRN ×2 (16:08→21:16)
--- NOTE | 2016-09-22 20:42 | Progress Note ---
Subjective Date of Service: Sep 22, 2016. Subjective Pt evaluation today including: conversation w/ patient, conversation w/ family (, several times today), physical exam, chart review, lab review, review of studies (cxr), conversation w/ [employer] consultant (social work ), review of inpatient medication list Pain: legs - no change PO Intake: good Voiding: no voiding problems no events overnight slept ok still having intermittent episodes of anxiety and dyspnea during these episodes he has tachypnea and forced wheezing the episodes self-resolve and his breathing returns to normal pt/ want home with hospice senthil Problem List Medical Problems: (1) Dyspnea Status: Acute Review of Systems Constitutional: No fever Cardiac: No chest pain Abdomen: No pain Objective Vital Signs Date Time Temp Pulse Resp B/P Pulse Ox O2 Delivery O2 Flow Rate FiO2 09/22/16 16:08 36.5 55 20 143/82 100 Nasal Cannula 2.0 09/22/16 16:00 Nasal Cannula 2.0 09/22/16 08:20 90 Nasal Cannula 2.0 09/22/16 07:47 36.3 75 20 152/81 90 Nasal Cannula 2.0 09/22/16 00:15 Nasal Cannula 2.0 Physical Exam General Appearance: no apparent distress ENT: pharynx normal Neck: no JVD Respiratory/Chest: no respiratory distress, no accessory muscle use, + crackles Cardiovascular: regular rate, rhythm, no gallop, no murmur Abdomen: normal bowel sounds, non tender, soft, no organomegaly Extremities: + pedal edema (trace, right; <1+ on left) Neurologic/Psychiatric: alert, + pertinent finding (anxious) Skin: + pertinent finding (ulcer on left mccann with eschar - no change; several small superficial ulcerations - clean, healing) Laboratory Results Last 24 Hours Test 09/22/16 07:42 09/22/16 08:21 09/22/16 10:27 09/22/16 11:28 Sodium Level 138 mmol/L Potassium Level mmol/L 4.3 mmol/L Chloride Level 106 mmol/L Carbon Dioxide Level 18 mmol/L Anion Gap 14.0 mmol/L Blood Urea Nitrogen 57 mg/dl Creatinine 2.20 mg/dl Est Creatinine Clear Calc Drug Dose 31.1 ml/min Estimated GFR () 33.0 Estimated GFR (Non- 28.5 BUN/Creatinine Ratio 25.8 Random Glucose 95 mg/dl Calcium Level 8.4 mg/dl Bedside Glucose 92 mg/dl 145 mg/dl Assessment and Plan 76yo male with: 1. acute respiratory distress - comes/goes. Seems to be anxiety attacks. He has been aggressively diuresed over the last few days without any appreciable change in his examination. CXR is unchanged as well despite aggressive diuresis. I have ordered low-dose morphine to help with his anxiety/dyspnea. 2. acute metabolic encephalopathy - resolved. Suspect 2nd to mild hepatic encephalopathy due to hepatic congestion. Ammonia improved. Lactulose 15cc daily for prevention of recurrence. 3. left leg venous ulceration - appreciate Wound care assistance. Continue omnicef for possible superimposed infection. Day #12 of abx. Plan 14 day course. Note from Dr. Aguirre reviewed, and dopplers reviewed. 4. PAD - severe - continue aspirin, statin, etc. 5. T2DM - controlled. Appreciate pharmacy assistance. 6. CKD stage 3 with superimposed acute kidney injury - latter 2nd to diuresis for #1. BMP stable today. Repeat BMP am. 7. anxiety - morphine and/or ativan prn. 8. DVT prophylaxis - SC heparin. 9. v-tach - s/p amiodarone as recommended by cardiology. 10. rash - contact dermatitis - resolved. 11. social - Home with hospice tomorrow. Fortunately there IS a physician that does house calls and that person will assume his care after discharge. updated. Discharge planning: home with Hospice
[2016-09-22] MEDS: ATORVASTATIN 40 MG TAB PO SCH (20:50)
[2016-09-22] MEDS: INSULIN GLARGINE SOLOSTAR 100 UNITS/ML 3 ML PEN SC SCH (21:15)
[2016-09-23] MEDS: MoRPHine SULFATE 15 MG/0.75 ML UDP PO PRN (04:38)
[2016-09-23] MEDS: HEPARIN SOD 5000 UNIT/0.5 ML CARP SQ SCH (05:30)
[2016-09-23] MEDS: COLLAGENASE OINT 30 GM TUBE EXT SCH (08:00)
[2016-09-23] MEDS: TRIAMCINOLONE ACET 0.1% CR 80 GM TUBE EXT SCH (08:00)
[2016-09-23] MEDS: FUROSEMIDE 40 MG TAB PO SCH (09:13)
[2016-09-23] MEDS: AMIODARONE 200 MG TAB PO SCH (09:13)
[2016-09-23] MEDS: ASPIRIN 81 MG ECTAB PO SCH (09:14)
[2016-09-23] MEDS: MINERAL OIL 473 ML BOTTLE PO SCH (09:14)
[2016-09-23] MEDS: IPRATROPIUM BROMIDE/ALBUTEROL respimat INH INH SCH ×2 (09:15→12:49)
[2016-09-23] MEDS: CARVEDILOL 3.125 MG TAB PO SCH (09:15)
[2016-09-23] MEDS: INSULIN ASPART 100 UNITS/ML 3 ML PEN SC SCH ×2 (09:16→11:00)
[2016-09-23] MEDS: FLUTICASONE/SALMETEROL 250/50 (ADVAIR) 14 PUFF/1 INHALER INH SCH (09:16)
[2016-09-23 09:42] VITALS: O2SAT 90
[2016-09-23 11:39] VITALS: BP 143/82; PULSE 55; TEMP 36.5; O2SAT 90
--- NOTE | 2016-09-23 12:07 | Pharmacy Progress Note ---
Glycemic Control: Progress Nt Date of Service Sep 23, 2016. Scope Glycemic Pharmacist consulted by Dr Kruger on 09/11/16 for glycemic control and to write orders per [facility] inpatient glycemic control protocol. Objective Accuchecks BSG (last 24hrs): Test 09/23/16 04:44 Laboratory Data (last 24hrs) Test 09/23/16 04:44 HbA1c: Test 09/12/16 03:18 Hemoglobin A1c 12.6 % (4.5-5.6) H Recent Pertinent Medications Outpatient Anti-diabetic Regimen: * none * A1c = 12.6 % 09/12/16 The patient is currently receiving: * Basal insulin: Lantus 8 units every 24 hours - dosed at bedtime * Correctional Insulin: Novolog Correction per scale ACHS Goal Range: Low 140 mg/dL - High 180 mg/dL Correction Factor: 25 mg/dL/unit * Prandial insulin: Per carb ratio of 1 unit per 10 grams CHO consumed * Oral Agents: None currently Risk Factors for Insulin Resistance: * Steroids: n/a * Infection: n/a * Pressors: n/a * IVF: n/a * Recent Surgery: n/a * Diet: ordered T2DM / Low Na diet * Mechanical Ventilation: n/a Assessment & Plan ASSESSMENT: 09/23/16 * Patient has refused BSG checks and insulin doses for 3 of 4 BSG checks in the last 24 hrs * It is my understanding the patient will be discharged w/ home hospice care [facility], possibly today * Given A1c of 12.6%, would recommend at least once daily basal insulin for some degree of control, however this decision ultimately depends upon the patient's level of comfort and goals of therapy. * Current insulin orders are appropriate when utilized PLAN FOR INPATIENT GLYCEMIC CONTROL: * Continuing Lantus 8 units SQ Q HS * Continuing correction factor of 25 mg/dl/unit * Continuing carb ratio of 1 unit per 10 grams CHO consumed * Continuing goal range of Low 140 mg/dL - High 180 mg/dL * Consider basal insulin alone for patient comfort; with once daily BSG checks prior to each dose * Please note that the plan above was derived based on current level of insulin resistance and hospital stress. These recommendations are appropriate for inpatient admission only. Plan of care upon discharge will need to be reassessed to avoid potential outpatient hypo/hyperglycemia. Thank you.
[2016-09-23] MEDS ORDERED: ADVIN25/60 INH (13:18)
[2016-09-23] MEDS ORDERED: LORA-741 PO (13:18)
[2016-09-23] MEDS ORDERED: SNTO30 EXT (13:18)
[2016-09-23] MEDS ORDERED: FURO40TA3 PO (13:18)
[2016-09-23] MEDS ORDERED: IPRA1AER2 INH (13:18)
[2016-09-23] MEDS ORDERED: RXNS15 PO (13:18)
[2016-09-23] MEDS ORDERED: CRG3125 PO (13:18)
[2016-09-23] MEDS ORDERED: LCTL45 PO (13:18)
[2016-09-23] MEDS ORDERED: CRD200 PO (13:18)
[2016-09-23] MEDS ORDERED: NTRSLP4 SL (13:18)
[2016-09-23] MEDS ORDERED: IPRASOL4 INH (13:19)
[2016-09-23] MEDS ORDERED: NEBMAC (13:19)
--- NOTE | 2016-09-23 13:31 | Discharge Instructions ---
Discharge Instructions Date of Service Sep 23, 2016. Admission Reason for Admission: Congestive Heart Failure Discharge Discharge Diagnosis / Problem: Congestive Heart Failure Discharge Goals Goal(s): Decrease discomfort, Improve disease control, Learn about illness, Diagnostic testing, Therapeutic intervention Activity Recommendations Activity Limitations: resume your previous activity (no restrictions; activity as tolerated) . Instructions / Follow-Up Instructions / Follow-Up From Dr. Cunningham - 1. For your congestive heart failure take the following - * carvedilol 3.125mg twice a day * amiodarone 200mg twice a day * lasix 80mg in the AM and 40mg in the late afternoon; this dose may need adjusting based on your breathing and comfort * oxygen 2 liters at all times * morphine liquid every 2 hours as needed for pain or shortness of breath * nitroglycerin under the tongue every 5 minutes as needed for chest pain; may take up to 3 tablets in 15 minutes * all of the above prescriptions have been called to [facility] except for the morphine 2. For anxiety - * ativan 0.5mg; may take 1-2 tablets every 6 hours as needed * morphine every 2 hours as needed 3. Diabetes - * you can stop checking your blood sugars and insulin if desired 4. For your breathing - * take advair 1 puff twice a day; rinse your mouth with water and spit the water out after each use * combivent inhaler 4 times a day (or the duonebs, if available); the duonebs will likely provide you more relief than the combivent inhaler * morphine every 2 hours as needed for shortness of breath/difficulty breathing/ anxiety * oxygen continuously 5. For prevention and treatment of constipation - * lactulose 15cc daily * this medication may also help prevent build-up of ammonia in your blood * ammonia causes confusion 6. Continue the santyl's and dressing changes daily to the left leg. 7. IF YOU HAVE ANY QUESTIONS, CONCERNS, PROBLEMS, DIFFICULTY BREATHING, DIFFICULTY VOIDING, WORSENING PAIN OR ANXIETY, ETC - PLEASE CONTACT THE HOSPICE COMPANY AT ANY HOUR Happy Dr. Octavio Kapoor Current Hospital Diet Patient's current hospital diet: Low Sodium Diet (2gm Na), Diabetes Type 2 Diet Discharge Diet Recommended Diet: Regular Diet Procedures Procedures Performed: echocardiogram showing severe congestive heart failure MRI of the left leg dopper ultrasound of left leg Pending Studies Studies pending at discharge: no Laboratory Results Hemoglobin A1c Test 09/12/16 03:18 Range/Units Estimated Average Glucose 315 mg/dl Hemoglobin A1c 12.6 H 4.5-5.6 % Medical Emergencies . Who to Call and When: Medical Emergencies: If at any time you feel your situation is an emergency, please call 911 immediately. . Non-Emergent Contact Non-Emergency issues call your: Specialist (HOSPICE Agency ) Call Non-Emergent contact if: temperature is above 100.5, your pain is not controlled, your pain is worsening, your pain is concerning you, wound has increased drainage, wound has increased redness, wound has increased pain, you have any medication questions . . "Provider Documentation" section prepared by Hayden Cunningham. VTE Core Measure Inpt VTE Proph given/why not?: Unfractionated heparin SQ
--- NOTE | 2016-09-28 | Discharge Summary ---
Discharge Summary Date of Service Sep 27, 2016. Discharge Summary Admission Date: Sep 11, 2016 at 18:10 Discharge Date: Sep 23, 2016 Discharge Disposition: Home with services (hospice) Principal Diagnosis: acute/chronic systolic CHF Problems/Secondary Diagnoses: 1. LLE cellulitis 2. LLE ulceration 3. Dyslipidemia 4. Hypertension 5. Nonsustained ventricular tachycardia 6. PAD 7. CKD stage 3 8. T2DM 9. positive troponin (myocardial demand ischemia) 10. hypokalemia 11. acute respiratory distress 2nd to CHF 12. hepatic encephalopathy 13. pulmonary HTN 14. contact dermatitis on back - resolved 15. anxiety 16. acute kidney injury - resolved 17. ? COPD Immunizations: Have You Had Influenza Vaccine: Yes Influenza Vaccine Date: Mar 21, 2011 History of Tetanus Vaccine?: Unknown History of Pneumococcal: Yes Pneumococcal Date: Apr 17, 2009 History of Hepatitis B Vaccine: Unknown Procedures: 1. echocardiogram: * -- Conclusions -- * 1. Moderately dilated left ventricle with severely reduced systolic function. EF 10-20%. Global severe hypokinesis to akinesis (see diagram). No left ventricular hypertrophy. Tissue Doppler suggests elevated left atrial pressure. * 2. The right ventricle is mildly dilated. The right ventricular systolic function is severely reduced. * 3. Mild biatrial dilation. * 4. Sclerotic aortic valve without significant stenosis. * 5. Mild mitral regurgitation. * 6. Moderately elevated right ventricular systolic pressure; estimated RVSP 52 mmHg. * 7. Compared to prior study on 04/30/2010, LV systolic function is now severely reduced (was hyperdynamic on 04/30/10). 2. LLE venous duplex study: FINDINGS: There is normal compressibility, flow, and augmentation within the left lower extremity deep venous system. Left superficial femoral artery occlusion, unchanged. 3. MRI left leg: IMPRESSION: 1. Diffuse subcutaneous edema throughout the left lower leg. 2. No evidence for osteomyelitis. 4. LLE arterial doppler: IMPRESSION: 1. Severe peripheral vascular disease with complete thrombosis throughout the left superficial femoral artery. There is reconstitution just above the knee. 2. Monophasic flow is shown in the calf. Reversal of flow is seen within the left peroneal artery. 3. Elevated velocities within the left profunda femoris artery suggest high-grade stenosis. Consultations: cardiology critical care PT, OT wound care provider wound care nurse Medication Reconciliation New Medications: Ipratropium-Albuterol (Duoneb) 3 Ml Nebu 1 TREATMENT INH Q4H PRN for cough, wheeze, sob, #1 BOX 2 Refills Lactulose (Lactulose) 30 Gm/45 Ml Syrp 15 ML PO DAILY, #250 ML 0 Refills Lorazepam (Ativan) 0.5 Mg Tab 0.5-1 MG PO Q6H PRN for anxiety, #60 TAB 0 Refills Nebulizer Machine (Home Use) (Nebulizer Machine (Home Use) ) Mis 1 EA N/A UD, #1 Amiodarone HCl (Amiodarone HCl) 200 Mg Tab 200 MG PO BID, #60 TAB 2 Refills Carvedilol (Carvedilol) 3.125 Mg Tab 3.125 MG PO BID, #60 TAB 5 Refills Collagenase (Santyl) 250 Unit/Gm Oin 1 APPLN EXT DAILY, #1 TUBE 2 Refills apply to left mccann ulcer daily Fluticasone Prop/Salmeterol (Advair Diskus 250/50 60 Dose) 1 Ea Aerp 1 PUFFS INH BID for 30 Days, #1 INHALER 5 Refills Ipratropium-Albuterol (Combivent Respimat) 1 Aer Aer 1 PUFFS INH QID, #1 INHALER 5 Refills Morphine Sulfate (Morphine Sulfate) 15 Mg/0.75 Ml Soln 15 MG PO Q2H PRN for pain or shortness of breath, #50 ML 0 Refills Nitroglycerin (Nitrostat) 0.4 Mg/1 Tab Subl 0.4 MG SL q5min PRN for Chest Pain, #1 BTL 0 Refills max 3 in 15 minutes Changed Medications: Furosemide (Lasix) 40 Mg Tab 40 MG PO DIRECTED, #90 TAB 5 Refills (Changed from: DAILY; Refills: ) take 2 tablets every AM and 1 tablet every afternoon Continued Medications: Aspirin (Aspirin Ec) 81 Mg Tab 4 TABS PO DAILY Discontinued Medications: Acetaminophen (Tylenol) 325 Mg Tab 650 MG PO Q6H PRN, #30 0 Refills Cholecalciferol (Vitamin D3) 1,000 Unit Tab 1 TAB PO DAILY for 30 Days, #30 TAB 5 Refills Coenzyme Q10 (Ubidecarenone) (Co Q10) 50 Mg Cap 100 MG PO Q2D, 0 Refills Fish Oil ([place]-3) 1 Ea Cap 1 CAP PO DAILY Multivitamin (Multivitamin) Tab 1 TAB PO DAILY Discharge Exam Physical Exam: General Appearance: no apparent distress ENT: pharynx normal Neck: + JVD Respiratory/Chest: no respiratory distress, no accessory muscle use, + crackles (both bases) Cardiovascular: regular rate, rhythm, no gallop, + systolic murmur (1/6 LLSB ), + abnormal peripheral pulses (1+ or less both feet) Abdomen / GI: normal bowel sounds, non tender, soft, no organomegaly Extremities: + pedal edema, + swelling Neurologic/Psychiatric: alert, oriented x 3, + pertinent finding (anxious ) Skin: + pertinent finding (LLE ulceration on mccann; clean, no drainage; surrounding cellulitis is minimal ) Hospital Course HISTORY OF PRESENT ILLNESS: This patient is a 76-year-old male with a history significant for cardiomyopathy, severe chronic systolic CHF with an EF previously of 15-20% on an echo from 2008, dyslipidemia,hypertension, nonsustained ventricular tachycardia, mitral regurgitation, severe peripheral arterial disease, and CKD stage III, who has been lost to follow-up from both cardiology and primary care for approximately 5-6 years. He apparently stopped taking all of his medications about 4 years ago. After medical management of his CHF, he did have improvement on a subsequent echo in 2009 with an EF of 75%. He presented to the emergency room today for progressively worsening shortness of breath, leg swelling, orthopnea, and severe leg pain with claudication and a left leg wound for the last 10 days. He has had some blisters rupture open due to the swelling in his legs. He can only walk 20 feet before he has severe pain in the legs. He denies chest pain. He denies fevers or chills. His was able to find some of his hold Lasix that had been sitting around for a few years. She has been giving him anywhere from 60-80 mg over the past 60 days or so. Apparently the Lasix improved his symptoms transiently early on , but they have not noticed any improvement over the past 30 days or so. While in the Emergency Department, he had a few runs of nonsustained ventricular tachycardia including 1 that lasted greater than 1 minute and he started to become unresponsive the ER physician or PA was about to commence chest compressions when the patient came out of the rhythm and became responsive. The patient was seen urgently in consultation with the supervisor of way for the recurrent sustained ventricular tachycardia, and was bolused with amiodarone and then started on an amiodarone drip. He was found to be in florid decompensated CHF, and was given IV Lasix. A bedside echocardiogram was performed by the supervisor of way which confirmed his ejection fraction was less than 20%. He will be admitted to the ICU given his recurrent sustained ventricular tachycardia, acute on chronic systolic CHF, and the cellulitis of the left leg. HOSPITAL COURSE: The patient had a prolonged hospitalization due to his severe heart disease and severe CHF. He was briefly admitted to the ICU for his acute/chronic systolic CHF and the nonsustained ventricular tachycardia (NS V-tach). He was seen in consult by cardiology who advised institution of amiodarone for his NS V-tach. This issue improved with such. He made slow, gradual improvement in his volume status with use of diuretics. Other issues addressed while here included his left leg ulcer and associated cellulitis, anxiety, acute kidney injury in the setting of CKD stage 3, rash on his back (contact dermatitis), hepatic encephalopathy due to hepatic congestion from his CHF, uncontrolled T2DM , and intermittent episodes of acute respiratory distress thought to be from a combination of anxiety as well as dyspnea from his CHF. Despite significant efforts to improve his health status and address the above problems the patient's progress plateaued. He continued with episodes of dyspnea and anxiety. He continued with an O2 requirement. Mr. Benítez began to refuse certain medications including his insulin. Palliative care/hospice discussions occurred, and he ultimately voiced to the medical team that he wished to return home with hospice. At time of discharge hospice has been arranged for Mr. Benítez at his home. He will continue to have wound care for his LLE ulceration. He was discharged home on oxygen. Total Time Spent: Greater than 30 minutes This includes examination of the patient, discharge planning, medication reconciliation, and communication with other providers. Discharge Instructions Please refer to the electronic Patient Visit Report (Discharge Instructions) for additional information. Follow-Up with hospice at home with Dr. Hernandez and his associates at home Additional Copies To Wilman Hernandez M.D.
== END 2016-09-23 14:02 | disposition hospice, home (50) | DRG 291 ==
LOC: ENRESERVTM → ENRESERVDT → EDBD 13:40 → C.EDC 13:42 → C.MSICU 18:10 → C.2T 09-13 13:20 → C.MS4W 09-17 10:00
PROVIDERS: ADMIT Family Medicine; ATTEND Internal Medicine
DX: I13.0 Hypertensive heart and chronic kidney disease with heart failure and stage 1 through stage 4 chronic kidney disease, or unspecified chronic kidney disease (principal); I50.23 Acute on chronic systolic (congestive) heart failure; G93.41 Metabolic encephalopathy; L03.116 Cellulitis of left lower limb; N17.9 Acute kidney failure, unspecified; J80 Acute respiratory distress syndrome; I47.2 Ventricular tachycardia; L97.929 Non-pressure chronic ulcer of unspecified part of left lower leg with unspecified severity; E78.5 Hyperlipidemia, unspecified; N18.3 Chronic kidney disease, stage 3 (moderate); E11.22 Type 2 diabetes mellitus with diabetic chronic kidney disease; Z68.32 Body mass index [BMI] 32.0-32.9, adult; Z87.891 Personal history of nicotine dependence; Z80.8 Family history of malignant neoplasm of other organs or systems; Z82.49 Family history of ischemic heart disease and other diseases of the circulatory system; Z88.8 Allergy status to other drugs, medicaments and biological substances; Z79.82 Long term (current) use of aspirin; Z79.899 Other long term (current) drug therapy; E66.9 Obesity, unspecified; E11.65 Type 2 diabetes mellitus with hyperglycemia; Z88.5 Allergy status to narcotic agent; I42.0 Dilated cardiomyopathy; E87.5 Hyperkalemia; Z79.4 Long term (current) use of insulin; E87.6 Hypokalemia; G47.30 Sleep apnea, unspecified; Z66 Do not resuscitate; F41.9 Anxiety disorder, unspecified; K59.00 Constipation, unspecified; L25.9 Unspecified contact dermatitis, unspecified cause; Z51.5 Encounter for palliative care; I25.10 Atherosclerotic heart disease of native coronary artery without angina pectoris; E03.9 Hypothyroidism, unspecified; E11.51 Type 2 diabetes mellitus with diabetic peripheral angiopathy without gangrene; I70.249 Atherosclerosis of native arteries of left leg with ulceration of unspecified site; I44.7 Left bundle-branch block, unspecified; I34.0 Nonrheumatic mitral (valve) insufficiency